=== PATIENT | male | born 1960 | race Caucasian/White ===

== ENCOUNTER 2024-08-05 12:49 | Outpatient (REF) | payer MEDICARE, MEDICAID, SELFPAY ==
--- OUTSIDE RECORDS SUMMARY | 2024-08-11 19:19 | XMS_ITS ---
Author Name [facility] Organization Unknown History of Medication Use Medication Directions Dispensed Refills Start Date End Date Stat citalopram (celeXA) 20 mg tablet Take 20 mg by mouth. 07/11/2022 active levalbuterol (XOPENEX) 1.25 mg/3 mL nebulizer solution every 30 minutes as needed. 07/11/2022 active montelukast (SINGULAIR) 10 mg tablet Take 10 mg by mouth nightly. 07/11/2022 active cromolyn (OPTICROM) 4 % ophthalmic solution PUT 1 DROP INTO THE AFFECTED EYE 4 TIMES A DAY 07/11/2022 aborted thyroid, pork, (ARMOUR THYROID) 15 mg tablet Take 75 mg by mouth Daily before breakfast. 07/11/2022 active LYRICA 50 mg capsule Take 50 mg by mouth daily. 07/11/2022 active buPROPion SR (WELLBUTRIN SR) 150 mg 12 hr tablet Take 450 mg by mouth daily. 07/11/2022 active SUMAtriptan succinate (IMITREX) 6 mg/0.5 mL solution Inject 6 mg under the skin. 07/11/2022 active pentoxifylline (TRENTal) CR tablet Take 400 mg by mouth 3 (three) times a day with meals. 07/11/2022 active clobetasoL (TEMOVATE) 0.05 % external solution PLEASE SEE ATTACHED FOR DETAILED DIRECTIONS 07/11/2022 active testosterone enanthate (DELATESTRYL) 200 mg/mL injection Inject into the shoulder, thigh, or buttocks once every 2 weeks. 07/11/2022 active VRAYLAR 4.5 mg capsule Take 3 mg by mouth daily. 07/11/2022 active primidone (MYSOLINE) 250 mg tablet Take 250 mg by mouth nightly. 10/31/2023 active ipratropium-albuterol (DUO-NEB) 0.5-2.5 mg/3 mL nebulizer solution Inhale 3 mL 4 times daily as needed. 07/11/2022 active doxazosin (CARDURA) 1 mg tablet Take 1 mg by mouth 2 (two) times a day. 07/11/2022 aborted SUMAtriptan (IMITREX) 100 mg tablet Take 100 mg by mouth once as needed. 07/11/2022 active celecoxib (CeleBREX) 100 mg capsule Take 100 mg by mouth in the morning. 07/11/2022 active loperamide (IMODIUM) capsule Take 2 mg by mouth daily. 07/11/2022 aborted omeprazole (PriLOSEC) 40 mg capsule Take 40 mg by mouth daily. 07/11/2022 active traZODone (DESYREL) 50 mg tablet 07/11/2022 aborted ezetimibe (ZETIA) 10 mg tablet Take 10 mg by mouth. 07/11/2022 aborted promethazine (PHENERGAN) 12.5 mg tablet Take 12.5 mg by mouth every 6 hours as needed. 07/11/2022 aborted umeclidinium 62.5 mcg/actuation blister with device Inhale daily. 07/11/2022 active Dupixent 300 mg/2 mL syringe SC injection 07/11/2022 acti ve acetaminophen (TYLENOL) 325 mg tablet Take 650 mg by mouth every 6 (six) hours as needed. 07/11/2022 active clopidogrel bisulfate (PLAVIX ORAL) Take by mouth. 07/11/2022 active cloNIDine (CATAPRES) 0.1 mg tablet TAKE 2 TABLETS BY MOUTH AT BEDTIME X 1 WEEK THEN TAKE 3 TABLETS AT BEDTIME 07/11/2022 aborted gabapentin (NEURONTIN) 300 mg capsule Take 300 mg by mouth nightly. 07/11/2022 active niacin (NIASPAN) 500 mg CR tablet Take 500 mg by mouth 2 (two) times a day. 07/11/2022 active primidone (MYSOLINE) 50 mg tablet Take 100 mg by mouth nightly. 07/11/2022 active tadalafiL (CIALIS) 5 mg tablet Take 5 mg by mouth 2 (two) times a day. 07/11/2022 active ROPINIRole (REQUIP) 1 mg tablet Take 1 mg by mouth daily. 07/11/2022 active fluticasone propion-salmeteroL (ADVAIR DISKUS) 500-50 mcg/dose diskus inhaler Inhale 1 puff every 12 hours. 07/11/2022 active FLOVENT HFA 220 mcg/actuation inhaler Inhale 2 puffs 2 (two) times a day. 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
== END 2024-08-05 12:50 | disposition home or self-care (01) ==
LOC: HO.BBR 12:49
PROVIDERS: PCP Internal Medicine; Visit Provider Urology
DX: D75.1 Secondary polycythemia (principal)
CPT/HCPCS: 85018; 99195

== ENCOUNTER 2024-10-27 08:47 | Outpatient (RCR) | payer MEDICARE, MEDICAID, SELFPAY | END 2024-11-10 17:17 | disposition home or self-care (01) | LOC: HO.PT 08:47 | PROVIDERS: PCP Internal Medicine; Visit Provider Orthopaedic Surgery Sports Medicine | DX: M17.12 Unilateral primary osteoarthritis, left knee (principal); Z96.652 Presence of left artificial knee joint | CPT/HCPCS: 97110; 97161 ==

== ENCOUNTER 2024-11-09 10:57 | Outpatient (REF) | payer MEDICARE, MEDICAID, SELFPAY ==
--- OUTSIDE RECORDS SUMMARY | 2024-11-09 12:24 | XMS_ITS | Encounter Summary ---
Author Organization [facility] [place] [address] Care Team Providers Care Cyber Instructor Name Role Phone Piero Echevarria MD Primary Care Provider [phone] Encounter Details Date Type Department Care Team (Latest Contact Info) Description 10/15/2024 9:17 AM EST - 10/15/2024 1:11 PM EST Hospital Encounter [facility] Main OR [address] [place] [phone] Norma Roberts MD [address] [address] Discharge Disposition: Home or Self Care Social History Tobacco Use Types Packs/Day Years Used Date Smoking Tobacco: Never Smokeless Tobacco: Never Alcohol Use Standard Drinks/Week Comments Never 0 (1 standard drink = 0.6 oz pur e alcohol) Interpersonal Safety Answer Date Record ed Physical Abuse 10/15/2024 Verbal Abuse 10/15/2024 Sex and Gender Information Value Date Recorded Sex Assigned at Male 10/04/2024 12:11 PM EST Legal Sex Male 3:09 PM EST Gender Identity Male 10/04/2024 12:11 PM EST Sexual Orientation Choose not to disclose 2024 12:11 PM EST documented as of this encounter Last Filed Vital Signs Vital Sign Reading Time Taken Comments Blood Pressure 125/81 10/15/2024 12:46 PM EST Pulse 85 10/15/2024 12:46 PM EST Temperature 36.4 ??C (97.6 ??F) 10/15/2024 12:[address] Respiratory Rate 16 10/15/2024 9:35 AM EST Oxygen Saturation 97% 10/15/2024 12:46 PM EST Inhaled Oxygen Concentration - - Weight - - Height - - Body Mass Index - - documented in this encounter Discharge Instructions * Discharge Instructions* PRANAV Ferguson - 10/15/2024 12:17 PM EST Orthopedic Discharge Instructions: Status post left endoscopic carpal tunnel release It is okay to move your fingers. Movement will help with swelling control and to minimize stiffness, including active and passive motion of the MCP (knuckles) of the hand. - Elevate surgical site above level of heart to minimize pain and swelling; this is most important in the first 3-5 days. - Apply ice packs for 10-15 min at a time; for swelling and pain control. - No driving until safely able to do so and/or cleared by Dr. Roberts. - Take oxycodone for pain sparingly. Be advised it can cause constipation, so plan accordingly. - Take Tylenol and ibuprofen as needed and as directed on the instructions of the bottle. - Dressing must be kept clean and dry. May perform dressing change 4-5 days post-op - Call if you have any questions or concerns such as fever, redness, loose splint, gross swelling, discoloration. Orthopedic [facility] * Attachments The following attachments cannot be sent through Care Everywhere. * Sedation (Cymro) * Carpal Tunnel Release: Post-op (Cymro) documented in this encounter Medications at Time of Discharge aspirin 81 mg EC tablet Take 1 tablet (81 mg total) by mouth 1 (one) time each day. buPROPion XL (WELLBUTRIN XL) 150 mg 24 hr tablet Take 1 tablet (150 mg total) by mouth 1 (one) time each day. Do not crush, chew, or split. buPROPion XL (WELLBUTRIN XL) 300 mg 24 hr tablet Take 1 tablet (300 mg total) by mouth 1 (one) time each day. Do not crush, chew, or split. ezetimibe (ZETIA) 10 mg tabletIndications:A therosclerotic heart disease of [place] coronary artery with other forms of angina pectoris (CMS/HCC) TAKE 1 TABLET BY MOUTH EVERY DAY 90 tablet 2 09/30/2024 famotidine (PEPCID) 40 mg tablet Take 1 tablet (40 mg total) by mouth 1 (one) time each day. fluticasone HFA (FLOVENT HFA) 220 mcg/actuation inhaler Inhale 1 puff by mouth 2 (two) times a day. Rinse mouth with water after use to reduce aftertaste and incidence of candidiasis. Do not swallow. fluticasone-umeclid inium-vilanterol (Trelegy Ellipta) 100-62.5-25 mcg inhaler Inhale 1 puff (100 mcg total) by mouth 1 (one) time each day. Rinse mouth with water after use to reduce aftertaste and incidence of candidiasis. Do not swallow. furosemide (LASIX) 20 mg tablet TAKE 1 TABLET BY MOUTH EVERY DAY 90 tablet 1 08/17/2024 gabapentin (NEURONTIN) 400 mg capsule Take 1 capsule (400 mg total) by mouth at bedtime. loperamide (IMODIUM A-D) 2 mg tablet Take 1 tablet (2 mg total) by mouth 2 (two) times a day if needed for diarrhea. metoprolol succinate (TOPROL-XL) 25 mg 24 hr tablet Take 1 tablet (25 mg total) by mouth 1 (one) time each day. Do not crush or chew. 90 tablet 1 10/09/2024 montelukast (SINGULAIR) 10 mg tablet Take 1 tablet (10 mg total) by mouth at bedtime. niacin 500 mg tablet Take 1 tablet (500 mg total) by mouth 1 (one) time each day with breakfast. primidone (MYSOLINE) 50 mg tablet Take 1 tablet (50 mg total) by mouth at bedtime. rOPINIRole (REQUIP) 1 mg tablet Take 1 tablet (1 mg total) by mouth at bedtime. sacubitriL-valsarta n (Entresto) 24-26 mg per tablet Take 1 tablet by mouth 2 (two) times a day. 180 each 3 08/14/2024 spironolactone (ALDACTONE) 25 mg tablet TAKE 1 TABLET BY MOUTH EVERY DAY 90 tablet 1 10/01/2024 SUMAtriptan (IMITREX) 100 mg tablet Take 1 tablet (100 mg total) by mouth 1 (one) time if needed for migraine. May repeat dose once in 2 hours if no relief. Do not exceed 2 doses in 24 hours. thyroid, pork, (ARMOUR THYROID) 15 mg tablet Take 5 tablets (75 mg total) by mouth 1 (one) time each day. vedolizumab (ENTYVIO) 300 mg recon soln Infuse 5 mL (300 mg total) into a venous catheter every 30 (thirty) days. venlafaxine (EFFEXOR) 37.5 mg tablet Take 1 tablet (37.5 mg total) by mouth 2 (two) times a day. vibegron (GEMTESA) 75 mg tablet tablet Take 1 tablet (75 mg total) by mouth at bedtime. dapagliflozin propanediol (FARXIGA) 10 mg tablet Take 1 tablet (10 mg total) by mouth 1 (one) time each day. ondansetron ODT (ZOFRAN-ODT) 4 mg disintegrating tablet Dissolve 1 tablet (4 mg total) on top of the tongue every 8 (eight) hours if needed for nausea or vomiting. acetaminophen (TYLENOL 8 HOUR) 650 mg 8 hr tablet Take 1 tablet (650 mg total) by mouth every 8 (eight) hours if needed for mild pain for up to 15 days. Do not crush, chew, or split. 45 tablet 10/15/2024 5 ibuprofen (ADVIL,MOTRIN) 800 mg tablet Take 1 tablet (800 mg total) by mouth 2 (two) times a day for 15 days. 30 tablet 10/15/2024 5 oxyCODONE (OXY-IR) 5 mg immediate release capsule Take 1 capsule (5 mg total) by mouth every 8 (eight) hours if needed for severe pain for up to 3 days. Max Daily Amount: 15 mg 8 capsule 10/15/2024 5 documented as of this encounter Ordered Prescriptions Prescription Sig Dispense Quantity Refills Last Filled Start Date End Date oxyCODONE (OXY-IR) 5 mg immediate release capsule Take 1 capsule (5 mg total) by mouth every 8 (eight) hours if needed for severe pain for up to 3 days. Max Daily Amount: 15 mg 8 capsule 10/15/2024 5 acetaminophen (TYLENOL 8 HOUR) 650 mg 8 hr tablet Take 1 tablet (650 mg total) by mouth every 8 (eight) hours if needed for mild pain for up to 15 days. Do not crush, chew, or split. 45 tablet 10/15/2024 5 ibuprofen (ADVIL,MOTRIN) 800 mg tablet Take 1 tablet (800 mg total) by mouth 2 (two) times a day for 15 days. 30 tablet 10/15/2024 5 documented in this encounter Discharge Disposition Disposition Code Departure Means Destination Comment s Home or Self Care Wheelchair Home documented in this encounter H&P Notes * Norma Roberts MD - 10/15/2024 11:10 AM EST Site marked No changes since in the office Pt also seen by cardiology Consent confirmed Source Note - Norma Roberts MD - 10/05/2024 9:15 AM EST PRE-OPERATIVE HISTORY & PHYSICAL PATIENT: Mirza Galvan Jr. :1960 VISIT DATE:10/05/2024 HPI: Mirza Galvan Jr. IS A 64 y.o. YEAR OLD male who presents for pre-operative exam. The patient is scheduled for left endoscopic carpal tunnel release.. Patient has had progressive numbness and tingling in the left hand. Some minor symptoms on the right. It is now to the point where the hand feels strange nearly all the time. It is starting to hurt more. It is in the median nerve innervated aspect of the left hand. ROS: Patient reports no recent colds flus or infections. ALLERGIES: Allergies Allergen Reactions Adhesive PROBLEM LIST: Patient Active Problem List Diagnosis HFrEF (heart failure with reduced ejection fraction) (CMS/HCC) Coronary artery disease involving [place] coronary artery of [place] heart without angina pectoris Dilated cardiomyopathy (CMS/HCC) Mixed hyperlipidemia Preop cardiovascular exam Acquired hypothyroidism BPH with urinary obstruction Androgen deficiency Chronic kidney disease (CKD) stage G3a/A1, moderately decreased glomerular filtration rate (GFR) between 45-59 mL/min/1.73 square meter and albuminuria creatinine ratio less than 30 mg/g (CMS/HCC) Tyshawn level IV melanoma (CMS/HCC) Crohn's disease (CMS/HCC) Crohn's disease of colon (CMS/HCC) Dilated idiopathic cardiomyopathy (CMS/HCC) Superficial thrombosis of lower extremity Lumbar stenosis with neurogenic claudication Malignant melanoma of scalp (CMS/HCC) Migraine headache Moderate asthma NATALIYA on CPAP Osteoarthritis of acromioclavicular joint Osteoarthritis of multiple joints Severe persistent asthma Status post insertion of drug-eluting stent into left anterior descending (LAD) artery Temporomandibular joint disorder PAST SURGERIES: Past Surgical History: Procedure Laterality Date ANKLE FRACTURE SURGERY Bilateral PROCEDURE: SD OPEN TREATMENT MEDIAL MALLEOLUS FRACTURE COLONOSCOPY 07/14/2020 PROCEDURE: HISTORICAL COLONOSCOPY; COMMENT: AND BIOPSY OF COLON FINGER SURGERY Left thumb, trapeziectomy w/ interpositional arthroplasty; done by Dr Roberts at [facility] KNEE ARTHROSCOPY W/ MENISCAL REPAIR Right 08/14/2013 PROCEDURE: SD ARTHROSCOPY KNEE W/MENISCUS RPR MEDIAL/LATERAL; COMMENT: partial medial meniscectomy KNEE SURGERY Bilateral PROCEDURE: HISTORICAL KNEE SURGERY LEG SURGERY 08/19/2017 PROCEDURE: HISTORICAL LEG SURGERY; COMMENT: Repair of quadriceps tendon OTHER SURGICAL HISTORY 07/14/2020 PROCEDURE: SD ECHO TRANSTHORAC R-T 2D W/WO M-MODE REC COMP; COMMENT: ABNORMAL OTHER SURGICAL HISTORY 04/13/2020 PROCEDURE: HISTORY OTHER; COMMENT: Melanoma excised scalp/sentinel node left neck OTHER SURGICAL HISTORY 07/01/2019 PROCEDURE: HISTORY OTHER; COMMENT: Reconstruction triceps tendon with Achilles tendon allograft left elbow OTHER SURGICAL HISTORY 08/19/2017 PROCEDURE: HISTORY OTHER; COMMENT: Repair of quadriceps tendon OTHER SURGICAL HISTORY 08/19/2017 PROCEDURE: SD RPR 1 TORN LIGM&/CAPSL KNE COLTRL&CRUCIATE OTHER SURGICAL HISTORY Left 09/29/2015 PROCEDURE: ARTHROSCOPY SHOULDER SURGI OTHER SURGICAL HISTORY 07/29/2013 PROCEDURE: HISTORY OTHER; COMMENT: Reconstruction chronic right pectoralis major rupture using achilles tendon allograft with transosseous technique OTHER SURGICAL HISTORY 05/05/2013 PROCEDURE: HISTORY OTHER; COMMENT: Secondary repair with allograft augmentation right subacute to chronic triceps tendon rupture OTHER SURGICAL HISTORY 12/24/2012 PROCEDURE: HISTORY OTHER; COMMENT: Excision of bone traction spur, right olecranon OTHER SURGICAL HISTORY 10/2009 PROCEDURE: HISTORY OTHER; COMMENT: Repair torn labum right shoulder OTHER SURGICAL HISTORY 06/19/2021 PROCEDURE: SD ECHO TRANSTHORAC R-T 2D W/WO M-MODE REC COMP OTHER SURGICAL HISTORY Left 07/01/2019 PROCEDURE: HISTORICAL ARM SURGERY; COMMENT: Reconstruction triceps tendon with Achilles tendon allograft left elbow TOTAL KNEE ARTHROPLASTY Right 06/07/2015 PROCEDURE: SD ARTHRP KNE CONDYLE&PLATU MEDIAL&LAT COMPARTMENTS SOCIAL HISTORY: Social History Tobacco Use Smoking status: Never Smokeless tobacco: Never Substance Use Topics Alcohol use: Never MEDICATIONS: Current Outpatient Medications: aspirin 81 mg EC tablet, Take 1 tablet (81 mg total) by mouth 1 (one) time each day., Disp: , Rfl: buPROPion XL (WELLBUTRIN XL) 150 mg 24 hr tablet, Take 1 tablet (150 mg total) by mouth 1 (one) time each day. Do not crush, chew, or split., Disp: , Rfl: buPROPion XL (WELLBUTRIN XL) 300 mg 24 hr tablet, Take 1 tablet (300 mg total) by mouth 1 (one) time each day. Do not crush, chew, or split., Disp: , Rfl: dapagliflozin propanediol (FARXIGA) 10 mg tablet, Take 1 tablet (10 mg total) by mouth 1 (one) timeeach day., Disp: , Rfl: dupilumab (DUPIXENT) 300 mg/2 mL syringe, Inject 2 mL (300 mg total) under the skin every 14 (fourteen) days., Disp: , Rfl: ezetimibe (ZETIA) 10 mg tablet, TAKE 1 TABLET BY MOUTH EVERY DAY, Disp: 90 tablet, Rfl: 2 famotidine (PEPCID) 20 mg tablet, Take 1 tablet (20 mg total) by mouth 1 (one) time each day., Disp: , Rfl: fluticasone HFA (FLOVENT HFA) 220 mcg/actuation inhaler, Inhale 1 puff by mouth 2 (two) times a day. Rinse mouth with water after use to reduce aftertaste and incidence of candidiasis. Do not swallow., Disp: , Rfl: fluticasone propion-salmeteroL (ADVAIR DISKUS) 500-50 mcg/dose diskus inhaler, Inhale 1 puff by mouth 2 (two) times a day. Rinse mouth with water after use to reduce aftertaste and incidence of candidiasis. Do not swallow., Disp: , Rfl: furosemide (LASIX) 20 mg tablet, TAKE 1 TABLET BY MOUTH EVERY DAY, Disp: 90 tablet, Rfl: 1 gabapentin (NEURONTIN) 400 mg capsule, Take 1 capsule (400 mg total) by mouth at bedtime., Disp: , Rfl: loperamide (IMODIUM A-D) 2 mg tablet, Take 1 tablet (2 mg total) by mouth 2 (two) times a day if needed for diarrhea., Disp: , Rfl: metoprolol succinate (TOPROL-XL) 25 mg 24 hr tablet, Take 1 tablet (25 mg total) by mouth 1 (one) time each day. Do not crush or chew., Disp: , Rfl: mirtazapine (REMERON) 45 mg tablet, Take 1 tablet (45 mg total) by mouth at bedtime., Disp: , Rfl: montelukast (SINGULAIR) 10 mg tablet, Take 1 tablet (10 mg total) by mouth at bedtime., Disp: , Rfl: niacin 500 mg tablet, Take 1 tablet (500 mg total) by mouth 1 (one) time each day with breakfast., Disp: , Rfl: ondansetron ODT (ZOFRAN-ODT) 4 mg disintegrating tablet, Dissolve 1 tablet (4 mg total) on top of the tongue every 8 (eight) hours if needed for nausea or vomiting., Disp: , Rfl: primidone (MYSOLINE) 50 mg tablet, Take 1 tablet (50 mg total) by mouth 4 (four) times a day., Disp: , Rfl: rOPINIRole (REQUIP) 1 mg tablet, Take 1 tablet (1 mg total) by mouth at bedtime., Disp: , Rfl: sacubitriL-valsartan (Entresto) 24-26 mg per tablet, Take 1 tablet by mouth 2 (two) times a day., Disp: 180 each, Rfl: 3 spironolactone (ALDACTONE) 25 mg tablet, TAKE 1 TABLET BY MOUTH EVERY DAY, Disp: 90 tablet, Rfl: 1 SUMAtriptan (IMITREX) 100 mg tablet, Take 1 tablet (100 mg total) by mouth 1 (one) time if needed for migraine. May repeat dose once in 2 hours if no relief. Do not exceed 2 doses in 24 hours., Disp:, Rfl: thyroid, pork, (ARMOUR THYROID) 15 mg tablet, Take 5 tablets (75 mg total) by mouth 1 (one) time each day., Disp: , Rfl: tramadol HCl (TRAMADOL ORAL), Take 50 mg by mouth every 12 (twelve) hours if needed. Max Daily Amount: 100 mg, Disp: , Rfl: vedolizumab (ENTYVIO) 300 mg recon soln, Infuse 5 mL (300 mg total) into a venous catheter every 30(thirty) days., Disp: , Rfl: venlafaxine (EFFEXOR) 37.5 mg tablet, Take 1 tablet (37.5 mg total) by mouth 2 (two) times a day., Disp: , Rfl: vibegron (GEMTESA) 75 mg tablet tablet, Take 1 tablet (75 mg total) by mouth at bedtime., Disp: , Rfl: PHYSICAL EXAM: Visit Vitals BP 120/77 Pulse 77 Temp 36.7 ??C (98.1 ??F) Ht 1.854 m (73 ) Wt 93 kg (205 lb) BMI 27.05 kg/m?? Smoking Status Never BSA 2.17 m?? APPEARANCE: Patient is alert and oriented and in no acute distress. HEENT: Normocephalic. Pupils are equal round and reactive to light. EXTREMITIES: On the patient's left hand does not have any gross thenar or hypothenar atrophy. He has altered sensation thumb index and long a little bit on the ring with small does not affected. He is able to flex and extend abduct and adduct the fingers and circumduct the thumb. Negative Tinel's but a positive Phalen's test. The hand is warm and well-perfused. Patient also reports some pain on the right side. He has some tenderness to palpation at the MCP joints of the index and long finger on the right. They do look little puffy when you compare the 2 hand [id number]. He has some carpal tunnel symptoms of numbness and tingling on the right but it is not as bad. I did review the patient's last x-rays and the MCP joints, at least for now, do not should reveal joint narrowing and sclerosis. IMAGES: ORTHO X-RAY EXAM OF HAND, 3+ VIEWS AP lateral and oblique of both hands were obtained on 06/08/2024. No prior images for comparison. Onthe right side patient's has evidence of some alignment deviation of the thumb. Looks like he probably has a chronic radial collateral ligament issue. Joint spaces in the DIP and PIP joints are maintained. MP joints are free of arthropathy. In the wrist he has some slight angulatory changes at the scaphoid and the neighboring trapezium and trapezoid although the joint spaces maintained. There is a little angulatory squaring off of the radial margin of the lunate. There is a subchondral cyst in the ulnar border of the lunate. Patient is ulnar positive variant. The oblique film demonstrates the changes at the MP joint of the right thumb which is chronic most likely. There is no excessive dorsal tilting of the lunate on the lateral film. On the left side patient has some joint space narrowing a little bit at the basal joint. There is similar changes at the thumb MP joint but without the angulatory changes this time more ulnar. Joint spaces at the PIP DIP and MP joints are maintained. Again patient has a few subchondral cyst noted in the proximal ulnar pole of the lunate consistent with some early ulnar impaction changes. Along the ulnar border of the MP head of the long finger there is 1 small wisp of calcification linearly which could just represent some old injury perhaps it is only noted on AP image. There is no evidence of any fractures or lytic lesions. ASSESSMENT & PLAN: ICD-10-CM ICD-9-CM 1. Carpal tunnel syndrome of left wrist G56.02 354.0 I reviewed the surgery with the patient. I showed the patient where the incisions would be. We talked about the surgery and the postoperative course. Risks of the procedure were reviewed. These can include, but are not limited to, nerve, tendon, or artery damage. There can also be complications with infection, bleeding, persistent pain, incomplete resolution of symptoms, and possibly the need foradditional interventions. Any of these events could compromise the limb on a temporary or permanentbasis. There can also be medical complications such as heart or lung dysfunction or blood clots that can put the patient at risk. We reviewed the recuperative time and limitations. Pain management was reviewed with the patient. Typically Tylenol, an anti- inflammatory, and then, if necessary, a few tablets of pain medication. The patient indicated understanding. Patient's questions were answered. Consent was obtained. POST-OPERATIVE APPOINTMENT DATE: 10/23/2024 documented in this encounter Procedure Notes * Khushi Downey RN - 10/15/2024 1:05 PM EST Discharge instructions reviewed and given to patient and Irina with stated understanding. * Norma Roberts MD - 10/15/2024 11:49 AM EST ENDOSCOPIC LEFT CARPAL TUNNEL RELEASE (L) OPERATIVE NOTE Date: 10/15/2024 Location: [facility] OR Name: Mirza Galvan Jr., : 1960, Diagnosis Pre-op Diagnosis * Carpal tunnel syndrome, left upper limb [G56.02] Post-op Diagnosis * Carpal tunnel syndrome, left upper limb [G56.02] Procedures ENDOSCOPIC LEFT CARPAL TUNNEL RELEASE 59100 - SD ENDOSCOPY WRIST SURGICAL WITH RELEASE TRANSVERSE CARPAL LIGAMENT Indications: Mirza Galvan Jr. is an 64 y.o. male who is having surgery for LEFT CARPAL TUNNEL SYNDROME. The patient has had progressive symptoms over a long period of time. He has tried conservativemeasures but due to the ongoing symptoms decision was made to proceed with operative. Surgeon(s) & Processor Inspector(s) * Norma Roberts MD - Primary * PRANAV Ferguson - Assisting Anesthesia: Monitor Anesthesia Care ASA: III Estimated Blood Loss: Minimal Procedure Details: The patient was identified in the preoperative holding area. The physical exam was updated and the chart was reviewed, updated, and consent confirmed. The patient's left hand was marked. The patient was taken to the operating room. The arm board was brought up next to the left side of the stretcher. The patient had padding and a tourniquet placed about the left upper extremity.The left hand and forearm were scrubbed, prepped, and draped in the usual sterile manner. The patient received IV sedation. Timeout procedure was done. I marked out my intended incision sites and allthe pertinent landmarks. Lidocaine 1% with epinephrine buffered with sodium bicarbonate was used and injected at the intended incision site. While the medication was taking effect we got the camera ready, white balanced, focused, and ready to go. We then elevated the arm, exsanguinated it, and raised the tourniquet. A small transverse incision was made 1 cm back from the primary flexion crease of the wrist. The patient did not have a palmaris longus tendon. This had been harvested several years ago and we did a ligamentous reconstruction of his thumb. There was significant fascial tissue at this later. I gently split it and identified the nerve. Dissection was done and the forearm fascia split carefully. 2 small cuts were made in a distal direction to create a small trapdoor. Underneath that I could visualize the median nerve. Before proceeding with canal preparation I turned my attention proximally and divided the fascia in a proximal direction for 1 -1.5cm. I then turned my attention back distally toprepare the carpal canal. I held the patient's left hand with my right hand such that my thumb was out at the distal border of the transverse carpal ligament. We passed the tenosynovium at home on the undersurface of the ligament carefully and on the back stroke pushed up on the undersurface of theligament. Care was taken to maintain the axis between the long and ring finger. This was repeated several times followed then by the small and then large dilators. We then advanced the micro-air camera and blade assembly into the carpal canal. There was still a little tenosynovium in the way so I repeated the canal maneuvers with the instruments. We then re-advanced the camera. As I advanced the camera out to the end of the ligament I then withdrew it slightly and then carefully divided the ligament in a stepwise manner with the trigger device on the blade. After completing the cut in the proximal direction I advanced the camera out distally and I could turn the camera to each side and see the cut side of the ligament. To the radial side I could turn the camera and see the median nerve. Ithclaus turned camera back up and in the midline advanced it and tapped the last few remaining fibers.The 2 sides ligament moved apart such that they were no longer coming together at an apex but rather were and in parallel. The longitudinal fibers on the undersurface of the palm fascia was visible. I carefully moved the camera back and confirm that there were no remaining fibers. I then readvanced the camera and we let the tourniquet down and I watched and there was no untoward bleeding. The camera was then removed. I confirmed by direct inspection that the proximal aspect ligament was fully divided. The instruments were removed. Wound was washed out. Because the patient has some sensitivities to adhesives we did not use Steri-Strips but rather I closed the wound with interrupted simple Prolene sutures. Xeroform was then applied. Additional lidocaine was injected just under the subcutaneous tissue of the palm and also on the distal forearm for postoperative analgesia. For the entirety of the case 15 mL was used. Soft bulky dressings were applied. Conform roll was then followed by an Miguel wrap. Sponge and instrument count was correct. The patient tolerated the procedure well and was broughtto recovery room in stable condition. Tourniquet time 9 minutes. Complications: None; patient tolerated the procedure well. Disposition: PACU - hemodynamically stable. Condition: stable * Deidre Adams RN - 10/15/2024 10:22 AM EST LAB DRAWS OF CBC AND BMP CANCELLED BY DR ROBERTS * Deidre Adams RN - 10/15/2024 10:20 AM EST [facility] IS [facility] [phone] BEFORE 2PM AFTER 2PM ADRIAN [phone] documented in this encounter Plan of Treatment Upcoming Encounters Date Type Department Care Team (Late st Contact Info) Description 12/22/2024 11:00 AM EDT Ancillary Procedure [facility]iology [facility] [address] [place] [address] 07/06/2025 10:50 AM EST Office Visit [facility] [address] [place] [address] Hari Emanuel MD [address] [place] [address] [place] [address] documented as of this encounter Procedures Procedure Name Priority Date/Time Associated Diagnosis Comments SD ENDOSCOPY WRIST SURGICAL WITH RELEASE TRANSVERSE CARPAL LIGAMENT 10/15/2024 11:29 AM EST Carpal tunnel syndrome, left upper limb documented in this encounter Visit Diagnoses Not on filedocumented in this encounter Administered Medications Inactive Administered Medications - up to 3 most recent administrations Medication Order MAR Action Action Date Dose Rate Site HYDROmorphone (PF) injection 0.5 mg 0.5 mg, intravenous, Every 5 min PRN, severe pain or when therapies for moderate pain were not effective, Starting on Roxane 10/15/24 at 1238, For 5 doses, Recovery (only) lactated Ringer's infusion 100 mL/hr, intravenous, Continuous, Starting on Roxane 10/15/24 at 1300, Recovery (only) lactated Ringer's infusion 100 mL/hr, intravenous, Continuous, Starting on Roxane 10/15/24 at 1145, Preprocedure New Bag 10/15/2024 11:29 AM EST ondansetron (PF) (ZOFRAN) injection 4 mg 4 mg, intravenous, Every 8 hours PRN, vomiting, nausea, Starting on Roxane 10/15/24 at 1238, Recovery (only), -ONLY give IV if patient is unable to take orally. -If inadequate response within 30 minutes, proceed to next-line agent or contact provider if no further options ordered. ondansetron ODT (ZOFRAN-ODT) disintegrating tablet 4 mg 4 mg, oral, Every 8 hours PRN, vomiting, nausea, Starting on Roxane 10/15/24 at 1238, Recovery (only), -Give IV if patient is unable to take orally. -If inadequate response within 30 minutes, proceed to next-line agent or contact provider if no further options ordered. For ODT tablets: -Do not remove from blister pack until just before administering. -Patient should allow tablet to dissolve on tongue. oxyCODONE (ROXICODONE) immediate release tablet 5 mg 5 mg, oral, Every 4 hours PRN, moderate pain or when therapies for mild pain were not effective, Starting on Roxane 10/15/24 at 1238, For 2 doses, Recovery (only) sodium chloride 0.9 % flush 10 mL 10 mL, intravenous, 2 times daily, First dose on Roxane 10/15/24 at 1000, Preprocedure sodium chloride 0.9 % flush 10 mL 10 mL, intravenous, As needed, line care, Starting on Roxane 10/15/24 at 0930, Preprocedure sodium chloride 0.9 % flush 10 mL 10 mL, intravenous, 2 times daily, First dose on Roxane 10/15/24 at 1145, Preprocedure sodium chloride 0.9 % flush 10 mL 10 mL, intravenous, As needed, line care, Starting on Roxane 10/15/24 at 1117, Preprocedure documented in this encounter Discontinued Medications Medication Sig Discontinue Reason Start Date End Da te dupilumab (DUPIXENT) 300 mg/2 mL syringe Inject 2 mL (300 mg total) under the skin every 14 (fourteen) days. 10/07/2024 fluticasone propion-salmeteroL (ADVAIR DISKUS) 500-50 mcg/dose diskus inhaler Inhale 1 puff by mouth 2 (two) times a day. Rinse mouth with water after use to reduce aftertaste and incidence of candidiasis. Do not swallow. 10/07/2024 mirtazapine (REMERON) 45 mg tablet Take 1 tablet (45 mg total) by mouth at bedtime. 10/07/2024 tramadol HCl (TRAMADOL ORAL) Take 50 mg by mouth if needed. Stop Taking at Discharge 10/15/2024 documented as of this encounter Historical Medications * This list may reflect changes made after this encounter. fluticasone-umec lidinium-vilante rol (Trelegy Ellipta) 100-62.5-25 mcg inhaler Inhale 1 puff (100 mcg total) by mouth 1 (one) time each day. Rinse mouth with water after use to reduce aftertaste and incidence of candidiasis. Do not swallow. added in this encounter Active and Recently Administered Medications Times are shown in EST. Scheduled Medication Order 10/13/2024 10/14/2024 10/15/2024 acetaminophen (TYLENOL) tablet 650 mg 650 mg, oral, Once, On Roxane 10/15/24 at 1300, For 1 dose, Recovery (only), Scheduled medication for mild pain 1300 (Canceled Entry - Provider: Automatic Discharge Provider - Comment: Automatically canceled at discontinue of medication order) ceFAZolin (ANCEF) 2 g in sterile water 20 mL IV syringe 2 g, intravenous, Administer over 3 Minutes, Once, On Roxane 10/15/24 at 1000, For 1 dose, Preprocedure, -IV Push over 3 minutes -Administer within 60 minutes of incision, Indication: Prophylaxis-Surgical 1000 (Canceled Entry - Provider: Automatic Discharge Provider - Comment: Automatically canceled at discontinue of medication order) sodium chloride 0.9 % flush 10 mL(Linked Group 1) 10 mL, intravenous, 2 times daily, First dose on Roxane 10/15/24 at 1000, Preprocedure 1000 (Canceled Entry - Provider: Automatic Discharge Provider - Comment: Automatically canceled at discontinue of medication order) sodium chloride 0.9 % flush 10 mL(Linked Group 2) 10 mL, intravenous, 2 times daily, First dose on Roxane 10/15/24 at 1145, Preprocedure 1145 (Canceled Entry - Provider: Automatic Discharge Provider - Comment: Automatically canceled at discontinue of medication order) Continuous Medication Order 10/13/2024 10/14/2024 10/15/2024 lactated Ringer's infusion 100 mL/hr, intravenous, Continuous, Starting on Roxane 10/15/24 at 1300, Recovery (only) 1300 (Canceled Entry - Provider: Automatic Discharge Provider - Comment: Automatically canceled at discontinue of medication order) lactated Ringer's infusion 100 mL/hr, intravenous, Continuous, Starting on Roxane 10/15/24 at 1145, Preprocedure 1129 (New Bag - Prov ider: Avtar Gonzalez DO)1215 (Anesthesia Volume Adjustment - Provider: Mitra Khan CRNA)1512 (Due: Stopped) PRN Medication Order 10/13/2024 10/14/2024 10/15/2024 HYDROmorphone (PF) injection 0.5 mg 0.5 mg, intravenous, Every 5 min PRN, severe pain or when therapies for moderate pain were not effective, Starting on Roxane 10/15/24 at 1238, For 5 doses, Recovery (only) lidocaine-EPINEPHrine (XYLOCAINE W/EPI) 1 %-1:100,000 injection (CANCELED) As needed, Starting on Roxane 10/15/24 at 1145, Intraprocedure 1145 (Given - Provid er: Norma Roberts MD) ondansetron (PF) (ZOFRAN) injection 4 mg(Linked Group 3) 4 mg, intravenous, Every 8 hours PRN, vomiting, nausea, Starting on Roxane 10/15/24 at 1238, Recovery (only), -ONLY give IV if patient is unable to take orally. -If inadequate response within 30 minutes, proceed to next-line agent or contact provider if no further options ordered. ondansetron ODT (ZOFRAN-ODT) disintegrating tablet 4 mg(Linked Group 3) 4 mg, oral, Every 8 hours PRN, vomiting, nausea, Starting on Roxane 10/15/24 at 1238, Recovery (only), -Give IV if patient is unable to take orally. -If inadequate response within 30 minutes, proceed to next-line agent or contact provider if no further options ordered. For ODT tablets: -Do not remove from blister pack until just before administering. -Patient should allow tablet to dissolve on tongue. oxyCODONE (ROXICODONE) immediate release tablet 5 mg 5 mg, oral, Every 4 hours PRN, moderate pain or when therapies for mild pain were not effective, Starting on Roxane 10/15/24 at 1238, For 2 doses, Recovery (only) sodium bicarbonate injection (CANCELED) As needed, Starting on Roxane 10/15/24 at 1147, Intraprocedure 1147 (Given - Provid er: Norma Roberts MD - Comment: mixed with Lidocaine 10:1 ratio) sodium chloride 0.9 % flush 10 mL(Linked Group 1) 10 mL, intravenous, As needed, line care, Starting on Roxane 10/15/24 at 0930, Preprocedure sodium chloride 0.9 % flush 10 mL(Linked Group 2) 10 mL, intravenous, As needed, line care, Starting on Roxane 10/15/24 at 1117, Preprocedure Linked Groups Order Group 1: Insert peripheral IV (CANCELED) STAT, Once, On Roxane 10/15/24 at 0931, For 1 occurrence, Preprocedure And Maintain IV access (CANCELED) Until discontinued, Starting on Roxane 10/15/24 at 0931, Until Specified, Preprocedure And Saline lock IV (CANCELED) Routine, Once, On Roxane 10/15/24 at 0931, For 1 occurrence, Preprocedure And sodium chloride 0.9 % flush 10 mLJump to med 10 mL, intravenous, 2 times daily, First dose on Roxane 10/15/24 at 1000, Preprocedure And sodium chloride 0.9 % flush 10 mLJump to med 10 mL, intravenous, As needed, line care, Starting on Roxane 10/15/24 at 0930, Preprocedure Group 2: Insert peripheral IV (CANCELED) STAT, Once, On Roxane 10/15/24 at 1118, For 1 occurrence, Preprocedure And Maintain IV access (CANCELED) Until discontinued, Starting on Roxane 10/15/24 at 1118, Until Specified, Preprocedure And Saline lock IV (CANCELED) Routine, Once, On Orxane 10/15/24 at 1118, For 1 occurrence, Preprocedure And sodium chloride 0.9 % flush 10 mLJump to med 10 mL, intravenous, 2 times daily, First dose on Roxane 10/15/24 at 1145, Preprocedure And sodium chloride 0.9 % flush 10 mLJump to med 10 mL, intravenous, As needed, line care, Starting on Roxane 10/15/24 at 1117, Preprocedure Group 3: ondansetron ODT (ZOFRAN-ODT) disintegrating tablet 4 mgJump to med 4 mg, oral, Every 8 hours PRN, vomiting, nausea, Starting on Roxane 10/15/24 at 1238, Recovery (only), -Give IV if patient is unable to take orally. -If inadequate response within 30 minutes, proceed to next-line agent or contact provider if no further options ordered. For ODT tablets: -Do not remove from blister pack until just before administering. -Patient should allow tablet to dissolve on tongue. Or ondansetron (PF) (ZOFRAN) injection 4 mgJump to med 4 mg, intravenous, Every 8 hours PRN, vomiting, nausea, Starting on Roxane 10/15/24 at 1238, Recovery (only), -ONLY give IV if patient is unable to take orally. -If inadequate response within 30 minutes, proceed to next-line agent or contact provider if no further options ordered. documented in this encounter Orders Medications Ordered That Luis ht Not Have Been Administered Count Last Ordered Date First Ordered Date acetaminophen (TYLENOL) tablet 650 mg 1 ceFAZolin (ANCEF) 2 g in sanya rile water 20 mL IV syringe 1 10/15/2024 HYDROmorphone (PF) injection 0.5 mg 1 10/15 lactated Ringer's infusion 2 10/15/2024 lidocaine-EPINEPHrine (XYLOC DIVYA W/EPI) 1 %-1:100,000 injection 1 10/15/2024 ondansetron (PF) (ZOFRAN) injection 4 mg 1 10/15/2024 ondansetron ODT (ZOFRAN-ODT) disintegrating tablet 4 mg 1 10/15/2024 oxyCODONE (ROXICODONE) immed iate release tablet 5 mg 1 10/15/2024 sodium bicarbonate injection 1 10/15/2024 sodium chloride 0.9 % flush 10 mL 4 025 Discharge Count Last Ordered Date First Orde red Date DISCHARGE PATIENT 1 10/15/2024 CORE MEASURES Count Last Ordered Date First Ord ered Date REASON FOR NO VTE PROPHYLAXI S - HOSPITAL ADMISSION - MECHANICAL 1 10/15/2024 documented in this encounter Care Teams Cyber Instructor Relationship Specialty Start Date End Date Piero Echevarria MD [address] [place] [address] PCP - General Internal Medicine 12/21/20 documented as of this encounter
--- OUTSIDE RECORDS SUMMARY | 2024-11-09 12:24 | XMS_ITS | Encounter Summary ---
Author Organization [facility] Address [address] [place] [address] Care Team Providers Care Vice President Digital Strategist Name Role Phone Piero Echevarria MD Primary Care Provider [phone] Reason for Visit * Reason Onset Date Comments Pre-operative Clearance 10/13/2024 Encounter Details Date Type Department Care Team (Late st Contact Info) Description 10/13/2024 Telephone [facility] [address] [place] [id number] Berta Arroyo NP [address] [place] [address] [address] [place] [address] Pre-operative Clearance Social History Tobacco Use Types Packs/Day Years Used Date Smoking Tobacco: Never Smokeless Tobacco: Never Alcohol Use Standard Drinks/Week Comments Never 0 (1 standard drink = 0.6 oz pur e alcohol) Sex and Gender Information Value Date Recorded Sex Assigned at Male 10/04/2024 12:11 PM EST Legal Sex Male 3:09 PM EST Gender Identity Male 10/04/2024 12:11 PM EST Sexual Orientation Choose not to disclose 2024 12:11 PM EST documented as of this encounter Progress Notes * Yanet Hunter, HAL - 10/13/2024 10:21 AM EST Office note was faxed to Dr. Du fax # [phone]. Confirmation received via right fax. * Katt Coy - 10/13/2024 9:21 AM EST Patient would like his note faxed to [phone] attn: * Yanet Hunter MA - 10/13/2024 8:52 AM EST Patient was seen in the office on 10/12/24 for pre- op. Office note was faxed to Dr. Roberts via [employer] by Analisa Arroyo, and Orthopedic sports analyst fax # [phone]. Confirmation received via right fax. Patient is also requesting office note to be faxed prior to his colonoscopy in December. The patient will be calling our office to let me know the fax # and office info. documented in this encounter Plan of Treatment Upcoming Encounters Date Type Department Care Team (Late st Contact Info) Description 12/22/2024 11:00 AM EDT Ancillary Procedure [facility] [address] [place] [address] 07/06/2025 10:50 AM EST Office Visit [facility] [address] [place] [address] Hari Emanuel MD [address] [place] [address] [address] [place] [address] documented as of this encounter Visit Diagnoses Not on filedocumented in this encounter Care Teams Vice President Digital Strategist Relationship Specialty Start Date End Date Piero Echevarria MD [address] [place] [address] [address] [place] [address] PCP - General Internal Medicine 12/21/20 documented as of this encounter
--- OUTSIDE RECORDS SUMMARY | 2024-11-09 12:24 | XMS_ITS | Encounter Summary ---
Author Organization [facility] Address [address] [place] [address] Care Team Providers Care Model And Dye Person Name Role Phone Pcp, Essence CRONIN Primary Care Provider Piero Christain Primary Care Provider [phone] Reason for Referral * MRI/CAT/PET Scan (Routine) - Closed Specialty Diagnoses / Procedures Referred By Contac t Referred To Contact Diagnoses Peroneal tendinitis of left lower extremity Posterior tibialis tendon insufficiency Achilles tendinitis of left lower extremity Procedures MRI ankle left WO contrast Karishma Montero MD [address] [place] [address] Phone: tel: fax: [address] [place] [address] Phone: tel: fax: Referral ID Status Reason Start Date Expiration Date Visits Requested Visits Authorized [id number] Closed Patient Preference 06/13/2021 07/18/2022 1 1 Encounter Details Date Type Department Care Team (Late st Contact Info) Description 06/13/2021 Orders Only [facility] Department of Orthopedic Surgery [address] [place], [place] [address] Karishma Montero MD [address] [place] [id number] Peroneal tendinitis of left lower extremity (Primary Dx); Posterior tibialis tendon insufficiency; Achilles tendinitis of left lower extremity Social History Tobacco Use Types Packs/Day Years Used Date Smoking Tobacco: Never Smokeless Tobacco: Never Alcohol Use Standard Drinks/Week Comments No 0 (1 standard drink = 0.6 oz pur e alcohol) Sex and Gender Information Value Date Recorded Sex Assigned at Not on file Legal Sex Male 12:04 PM EST Gender Identity Not on file Sexual Orientation Not on file COVID-19 Exposure Response Date Recorded In the last month, have you been in contact with someone who was confirmed or suspected to have Coronavirus / COVID-19? No / Unsure 05/31/2021 1:37 PM EDT documented as of this encounter Plan of Treatment Scheduled Orders Name Type Priority Associated Diagnoses Orde r Schedule MRI ankle left WO contrast Imaging Routine Peroneal tendinitis of left lower extremity Posterior tibialis tendon insufficiency Achilles tendinitis of left lower extremity Expected: 06/13/2021, Expires: 06/13/2022 documented as of this encounter Visit Diagnoses Diagnosis Peroneal tendinitis of left lower extremity- Primary Posterior tibialis tendon insufficiency Achilles tendinitis of left lower extremity documented in this encounter Care Teams Model And Dye Person Relationship Specialty Start Date End Date Pcp, MD Essence [address] [place] [address] PCP - General Internal Medicine 01/16/18 06/28/22 Piero Echevarria [address] [place] [address] PCP - General Primary Care 06/29/22 documented as of this encounter
--- OUTSIDE RECORDS SUMMARY | 2024-11-09 12:24 | XMS_ITS | Encounter Summary ---
Author Organization [facility] Address [address] [place] [address] Care Team Providers Care Patient Services Manager Name Role Phone Piero Echevarria MD Primary Care Provider Reason for Referral * Imaging (Routine) - Closed Specialty Diagnoses / Procedures Referred By Contac t Referred To Contact Diagnoses Swelling Pain Localized edema Procedures Vascular US duplex lower extremity venous left Chris Hairston MD [address] [id number] Phone: tel: fax: [facility] Referral ID Status Reason Start Date Expiration Date Visits Re quested Visits Authorized [id number] Closed 11/03/2024 11/03/2025 1 1 Reason for Visit * Imaging (Routine) - Closed Specialty Diagnoses / Procedures Referred By Fernanda holden Referred To Contact Diagnoses Swelling Pain Localized edema Procedures Vascular US duplex lower extremity venous left Chris Hairston MD [address] [address] Phone: tel: fax: [facility] Referral ID Status Reason Start Date Expiration Date Visits Re quested Visits Authorized [id number] Closed 11/03/2024 11/03/2025 1 1 Encounter Details Date Type Department Care Team (Latest Contact Info) Description 11/03/2024 3:00 PM EST - 11/03/2024 11:59 PM EST Hospital Encounter [facility] Ultrasound [address] [place] [address] Swelling; Pain; Localized edema Discharge Disposition: Home or Self Care Social [...] PM EST documented as of this encounter Medications at Time of Discharge [...] 10 mg tabletIndications: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 documented as of this encounter Discharge Disposition Disposition Code Departure Means Destination Home or Self Care documented in this encounter Plan of Treatment Upcoming Encounters Date Type Department Care Team (Late st Contact Info) Description 12/22/2024 11:00 AM EDT Ancillary Procedure [facility] [address] [place] [address] 07/06/2025 10:50 AM EST Office Visit [facility] [address] [place] [address] [address] [place] [address] Hari Emanuel MD [address] [place] [address] [address] [place] [address] documented as of this encounter Procedures Procedure Name Priority Date/Time Associated Diagnosis Comments VAS US DUPLEX LOWER EXT VENOUS LEFT Routine 11/03/2024 3:35 PM EST Swelling Pain Localized edema documented in this encounter Results * Vascular US duplex lower extremity venous left (11/03/2024 3:35 PM EST) Anatomical Region Laterality Modality Vascular, Abdomen Ultrasound 11/03/2024 3:41 PM EST Impressions 11/03/2024 3:41 PM EST NO LEFT LOWER EXTREMITY DEEP VENOUS THROMBOSIS. -------- FINAL REPORT -------- Dictated By: Darrell Vasquez Dictated Date: 11/03/2024 15:41 ET Assigned Physician: Darrell Vasquez Reviewed and Electronically Signed By: Darrell Vasquez Signed Date: 11/03/2024 15:41 ET Workstation ID: [id number] Transcribed By: Self Edit Transcribed Date: 11/03/2024 15:41 ET Narrative 11/03/2024 3:41 PM EST Ultrasound venous duplex left lower extremity INDICATION: ro dvt TECHNIQUE: 2-D and color Doppler imaging of the left lower extremity venous vasculature with compression and augmentation maneuvers. COMPARISON: No priors available. FINDINGS: There is normal flow, compression, and augmentation from the common femoral through the popliteal vein. Complex appearing popliteal fossa cyst measuring 5.6 x 2.2 x 1.5 cm Procedure Note Darrell Vasquez MD - 11/03/2024 Ultrasound venous duplex left lower extremity INDICATION: ro dvt TECHNIQUE: 2-D and color Doppler imaging of the left lower extremityvenous vasculature with compression and augmentation maneuvers. COMPARISON: No priors available. FINDINGS: There is normal flow, compression, and augmentation from the commonfemoral through the popliteal vein. Complex appearing popliteal fossa cystmeasuring 5.6 x 2.2 x 1.5 cm IMPRESSION: NO LEFT LOWER EXTREMITY DEEP VENOUS THROMBOSIS. -------- FINAL REPORT -------- Dictated By: Darrell Vasquez Dictated Date: 11/03/2024 15:41 ET Assigned Physician: Darrell Vasquez Reviewed and Electronically Signed By: Darrell Vasquez Signed Date: 11/03/2024 15:41 ET Workstation ID: [id number] Transcribed By: Self Edit Transcribed Date: 11/03/2024 15:41 ET Chris Hairston MD CV VASCULAR PROCEDURES Final Re sult documented in this encounter Visit Diagnoses Diagnosis Swelling Localized superficial swelling, mass, or lump Pain Generalized pain Localized edema Edema documented in this encounter Care Teams Patient Services Manager Relationship Specialty Start Date End Date Piero Echevarria MD [address] [place] [address] PCP - General Internal Medicine 12/21/20 documented as of this encounter
--- OUTSIDE RECORDS SUMMARY | 2024-11-09 12:24 | XMS_ITS | Encounter Summary ---
Author Organization [facility] Address [address] [place] [address] Care Team Providers Care Auto Service Dispatcher Name Role Phone Piero Echevarria MD Primary Care Provider Encounter Details Date Type Department Care Team (Late st Contact Info) Description 10/15/2024 10:45 AM EST - 10/15/2024 12:00 PM EST Surgery [facility] OR [address] [place] [phone] Norma Roberts MD [address] [facility] [address] [place] [address] ENDOSCOPIC LEFT CARPAL TUNNEL RELEASE [11391 (CPT??)] Surgery Details Date/Time Status Location OR Service Patient Class Case Cl ass Case Type Trauma Case? 10/15/2024 10:45 AM Posted [facility] F - Elective Panel 1 Procedure LRB Anes Op Region Wound Class Comments ENDOSCOPIC LEFT CARPAL TUNNEL RELEASE Left Moderate Sedation Wrist Class I/ Clean Surgeon Surgeon Role Service Panel Norma Roberts MD Primary Orthopedics 1 Macy Wyatt PA Assisting 1 documented in this encounter Social History Tobacco Use Types Packs/Day Years [...] Sign Reading Time Taken Comments Blood Pressure 144/93 10/15/2024 9:35 AM EST Pulse 87 10/15/2024 9:35 AM EST Temperature 37 ??C (98.6 ??F) 10/15/2024 9:35 AM EST Respiratory Rate 16 10/15/2024 9:35 AM EST Oxygen Saturation 96% 10/15/2024 9:35 AM EST Inhaled Oxygen Concentration - - Weight [...] redness, loose splint, gross swelling, discoloration. Orthopedic care collbran * Attachments The following attachments cannot be sent through Care Everywhere. * Sedation (Rwandan) * Carpal Tunnel Release: Post-op (Rwandan) documented in this encounter Medications at Time [...] 10 mg tabletIndications:A therosclerotic heart disease of jena coronary artery with other forms of angina [...] Daily Amount: 15 mg 8 capsule 10/15/2024 documented as of this encounter Ordered Prescriptions Prescription Sig Dispense Quantity Refills Last Filled Start Date End Date oxyCODONE (OXY-IR) 5 mg immediate release capsule Take 1 capsule (5 mg total) by mouth every 8 (eight) hours if needed for severe pain for up to 3 days. Max Daily Amount: 15 mg 8 capsule 10/15/2024 acetaminophen (TYLENOL 8 HOUR) 650 mg 8 hr tablet Take 1 tablet (650 mg total) by mouth every 8 (eight) hours if needed for mild pain for up to 15 days. Do not crush, chew, or split. 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 Dilated cardiomyopathy (CMS/HCC) [...] Laterality Date ANKLE FRACTURE SURGERY Bilateral PROCEDURE: DE OPEN TREATMENT MEDIAL MALLEOLUS FRACTURE COLONOSCOPY 07/14/2020 PROCEDURE: HISTORICAL COLONOSCOPY; COMMENT: AND BIOPSY OF COLON FINGER SURGERY Left thumb, trapeziectomy w/ interpositional arthroplasty; done by Dr Roberts at [facility] KNEE ARTHROSCOPY W/ MENISCAL REPAIR Right 08/14/2013 PROCEDURE: DE ARTHROSCOPY KNEE W/MENISCUS RPR MEDIAL/LATERAL; COMMENT: partial medial meniscectomy KNEE SURGERY Bilateral PROCEDURE: HISTORICAL KNEE SURGERY LEG SURGERY 08/19/2017 PROCEDURE: HISTORICAL LEG SURGERY; COMMENT: Repair of quadriceps tendon OTHER SURGICAL HISTORY 07/14/2020 PROCEDURE: DE ECHO TRANSTHORAC R-T 2D W/WO M-MODE REC COMP; COMMENT: ABNORMAL OTHER SURGICAL HISTORY 04/13/2020 PROCEDURE: HISTORY OTHER; COMMENT: Melanoma excised scalp/sentinel node left neck OTHER SURGICAL HISTORY 07/01/2019 PROCEDURE: HISTORY OTHER; COMMENT: Reconstruction triceps tendon with Achilles tendon allograft left elbow OTHER SURGICAL HISTORY 08/19/2017 PROCEDURE: HISTORY OTHER; COMMENT: Repair of quadriceps tendon OTHER SURGICAL HISTORY 08/19/2017 PROCEDURE: DE RPR 1 TORN LIGM&/CAPSL KNE COLTRL&CRUCIATE OTHER [...] right shoulder OTHER SURGICAL HISTORY 06/19/2021 PROCEDURE: DE ECHO TRANSTHORAC R-T 2D W/WO M-MODE REC COMP OTHER SURGICAL HISTORY Left 07/01/2019 PROCEDURE: HISTORICAL ARM SURGERY; COMMENT: Reconstruction triceps tendon with Achilles tendon allograft left elbow TOTAL KNEE ARTHROPLASTY Right 06/07/2015 PROCEDURE: DE ARTHRP KNE CONDYLE&PLATU MEDIAL&LAT COMPARTMENTS SOCIAL HISTORY: [...] puffy when you compare the 2 hand [id number]. He has some carpal tunnel symptoms of [...] RELEASE (L) OPERATIVE NOTE Date: 10/15/2024 Location: [facility] OR Name: Mirza Galvan Jr., : 1960, Diagnosis Pre-op Diagnosis * Carpal tunnel syndrome, left upper limb [G56.02] Post-op Diagnosis * Carpal tunnel syndrome, left upper limb [G56.02] Procedures ENDOSCOPIC LEFT CARPAL TUNNEL RELEASE [id number] - DE ENDOSCOPY WRIST SURGICAL WITH RELEASE TRANSVERSE CARPAL LIGAMENT Indications: Mirza Galvan Jr. is an 64 y.o. male who is having surgery for LEFT CARPAL TUNNEL SYNDROME. The patient has had progressive symptoms over a long period of time. He has tried conservativemeasures but due to the ongoing symptoms decision was made to proceed with operative. Surgeon(s) & Pick Up Truck Driver(s) * Norma Roberts MD - Primary * [...] the camera and see the median nerve. Ritu turned camera back up and in the [...] 10/15/2024 10:20 AM EST [facility] IS IRINA [phone] BEFORE 2PM AFTER 2PM ADRINA [phone] documented in this encounter Plan of Treatment Upcoming Encounters Date Type Department Care Team (Late st Contact Info) Description 12/22/2024 11:00 AM EDT Ancillary Procedure [facility] [address] [place] [address] 07/06/2025 10:50 AM EST Office Visit [facility] [address] [place] [address] Hari Emanuel MD [address] [place] [address] [address] [place] [address] documented as of this encounter Procedures Procedure Name Priority Date/Time Associated Diagnosis Comments DE ENDOSCOPY WRIST SURGICAL WITH RELEASE TRANSVERSE CARPAL LIGAMENT 10/15/2024 11:29 AM EST Carpal tunnel syndrome, left upper limb documented in this encounter Visit Diagnoses Diagnosis Carpal tunnel syndrome, left upper limb documented in this encounter Administered Medications Inactive Administered [...] Preprocedure New Bag 10/15/2024 11:29 AM EST lidocaine-EPINEPHrine (XYLOCAINE W/EPI) 1 %-1:100,000 injection As needed, Starting on Roxane 10/15/24 at 1145, Intraprocedure Given 10/15/2024 11:45 AM EST 10 mL Left Hand ondansetron (PF) (ZOFRAN) injection 4 mg 4 [...] 2 doses, Recovery (only) sodium bicarbonate injection As needed, Starting on Roxane 10/15/24 at 1147, Intraprocedure Given 10/15/2024 11:47 AM EST 1 mEq Left Hand sodium chloride 0.9 % flush 10 mL [...] IV access (CANCELED) Until discontinued, Starting on Roxnae 10/15/24 at 0931, Until Specified, Preprocedure And [...] (CANCELED) Routine, Once, On Roxane 10/15/24 at 1118, For [...] 1 10/15 lactated Ringer's infusion 2 10/15/2024 ondansetron (PF) (ZOFRAN) injection 4 mg 1 10/15/2024 ondansetron ODT (ZOFRAN-ODT) disintegrating tablet 4 mg 1 10/15/2024 oxyCODONE (ROXICODONE) immed iate release tablet 5 mg 1 10/15/2024 sodium chloride 0.9 % flush 10 mL 4 025 Discharge Count Last Ordered Date First Orde red Date DISCHARGE PATIENT 1 10/15/2024 CORE MEASURES Count Last Ordered Date First Ord ered Date REASON FOR NO VTE PROPHYLAXI S - HOSPITAL ADMISSION - MECHANICAL 1 10/15/2024 documented in this encounter Care Teams Auto Service Dispatcher Relationship Specialty Start Date End Date Piero Echevarria MD [address] [place] [address] PCP - General Internal Medicine 12/21/20 documented as of this encounter
--- OUTSIDE RECORDS SUMMARY | 2024-11-09 12:24 | XMS_ITS | Clinical Summary ---
Author Organization [facility] Address [address] [place] [address] Care Team Providers Care Logging Engineer Name Role Phone Piero Echevarria Primary Care Provider [phone] Allergies Active Allergy Reactions Criticality Noted Date Comments Adhesive Tape-Silicones Rash Low 03/08/2021 Paper tape is ok Cat Dander 07/09/2022 Other reaction(s): runny nose sneezing Medications fluticasone propion-salmete roL (ADVAIR DISKUS) 500-50 mcg/dose diskus inhaler Inhale 1 puff every 12 hours. Active pentoxifylline (TRENTal) CR tablet Take 400 mg by mouth 3 (three) times a day with meals. 5 Active LYRICA 50 mg capsule Take 50 mg by mouth daily. 5 8 Active primidone (MYSOLINE) 250 mg tablet Take 250 mg by mouth nightly. 5 Active thyroid, pork, (ARMOUR THYROID) 15 mg tablet Take 75 mg by mouth Daily before breakfast. Active VRAYLAR 4.5 mg capsule Take 3 mg by mouth daily. 0 8 Active celecoxib (CeleBREX) 100 mg capsule Take 100 mg by mouth in the morning. Active tadalafiL (CIALIS) 5 mg tablet Take 5 mg by mouth 2 (two) times a day. 7 Active FLOVENT HFA 220 mcg/actuation inhaler Inhale 2 puffs 2 (two) times a day. 5 8 Active gabapentin (NEURONTIN) 300 mg capsule Take 300 mg by mouth nightly. Active umeclidinium 62.5 mcg/actuation blister with device Inhale daily. 7 Active ipratropium-alb uterol (DUO-NEB) 0.5-2.5 mg/3 mL nebulizer solution Inhale 3 mL 4 times daily as needed. Active levalbuterol (XOPENEX) 1.25 mg/3 mL nebulizer solution every 30 minutes as needed. Active montelukast (SINGULAIR) 10 mg tablet Take 10 mg by mouth nightly. 7 Active niacin (NIASPAN) 500 mg CR tablet Take 500 mg by mouth 2 (two) times a day. 3 8 Active ROPINIRole (REQUIP) 1 mg tablet Take 1 mg by mouth daily. 7 Active SUMAtriptan (IMITREX) 100 mg tablet Take 100 mg by mouth once as needed. Active SUMAtriptan succinate (IMITREX) 6 mg/0.5 mL solution Inject 6 mg under the skin. Active testosterone enanthate (DELATESTRYL) 200 mg/mL injection Inject into the shoulder, thigh, or buttocks once every 2 weeks. Active Dupixent 300 mg/2 mL syringe SC injection 0 Active buPROPion SR (WELLBUTRIN SR) 150 mg 12 hr tablet Take 450 mg by mouth daily. 0 Active clobetasoL (TEMOVATE) 0.05 % external solution PLEASE SEE ATTACHED FOR DETAILED DIRECTIONS 1 Active citalopram (celeXA) 20 mg tablet Take 20 mg by mouth. 1 Active acetaminophen (TYLENOL) 325 mg tablet Take 650 mg by mouth every 6 (six) hours as needed. Active clopidogrel bisulfate (PLAVIX ORAL) Take by mouth. 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 18 Immunizations Name Administration Dates Next Due COVID-19 MRNA (MODERNA) 12/11/2020,11/13/2020 Family History Relation Status Comments Father Mother Social History Tobacco Use Types Packs/Day Years Used Date Smoking Tobacco: Never Smokeless Tobacco: Never Tobacco Cessation:Counseling Given: Not Answered Alcohol Use Standard Drinks/Week Comments No 0 (1 standard drink = 0.6 oz pur e alcohol) Sex and Gender Information Value Date Recorded Sex Assigned at Not on file Legal Sex Male 12:04 PM EST Gender Identity Not on file Sexual Orientation Not on file Last Filed Vital Signs Vital Sign Reading Time Taken Comments Blood Pressure 146/85 10/24/2023 2:20 PM EST Pulse 80 10/24/2023 2:20 PM EST Temperature 37.1 ??C (98.7 ??F) 10/24/2023 1:40 PM ES T Respiratory Rate 16 10/24/2023 2:20 PM EST Oxygen Saturation 95% 10/24/2023 2:20 PM EST Inhaled Oxygen Concentration - - Weight 94.5 kg (208 lb 5.4 oz) 10/24/2023 11:54 AM EST Height 185.4 cm (6' 1 ) 10/18/2023 3:31 PM EST Body Mass Index 27.49 10/18/2023 3:31 PM EST Plan of Treatment Health Maintenance Due Date Last Done Comments CT Colonography 1960 Colonoscopy 1960 Colorectal Cancer Screening 1960 FIT-DNA (Cologuard) 1960 FIT 1960 FOBT 1960 Flex Sigmoidoscopy - 5y 1960 HIV Screening 1960 Hepatitis C Screening 1979 Pneumococcal Vaccine: Pediatrics (0 to 5 Years) and At-Risk Patients (6 to 64 Years) (2 of 2 - PCV) 12/26/2019 12/25/2018 COVID-19 Vaccine (2023-2 5 season) 2024 07/25/2021, 12/11/2020, 11/13/2020 Influenza Vaccine (#1) 2024 DTaP,Tdap,and Td Vaccines (2 - Td or Tdap) 11/25/2029 11/26/2019 Zoster Vaccines Completed 08/11/2020, 06/07/2020 HPV Vaccines Aged Out No longer eligi ble based on patient's age to complete this topic Hepatitis A Vaccines Aged Out No long er eligible based on patient's age to complete this topic MMR Vaccines Aged Out No longer eligi ble based on patient's age to complete this topic Meningococcal Vaccine Aged Out No ciarra eleno eligible based on patient's age to complete this topic Medical Devices Implanted Type Area General Office Clerk Device Identifier Shelf Expiration Date Model / Serial / Lot 4 X 6 (10cm X 15cm) Large, Right 3dmax Mesh - [id number] Implanted:Qty: 1 on 10/06/2020 by Abebe Nicholson MD at [facility] Mesh Implant Right: Abdomen [employer] 05/30/2025 [id number] / / [id number] Description:inguinal 5mm Abs Cervical Fixation Device, Single Use W/ 30 Tacks, Absorbatrack, Drop-Ship Only - [id number] Implanted:Qty: 1 on 10/06/2020 by Abebe Nicholson MD at [facility] Surgical Fixation Device Right: Abdomen [employer] (formerly Auto Suture/US Surgical) 03/01/2023 [id number] / / [id number] 1.6mm X 229mm Microaire K-Wire - [id number] Implanted:Qty: 2 on 03/09/2021 at [facility] Surgical Fixation Device [employer] [id number] / / Description:not an implant Insurance MEDICARE PART A & B [facility] Advance Directives For more information, please contact: [phone] Documents on File Type Date Recorded Patient Wood Inspector Expl anation Advance Directives 10/28/2023 12:58 PM Advance Directives 08/18/2018 12:53 PM Care Teams Logging Engineer Relationship Specialty Start Date End Date Piero Echevarria [address] [place] [id number] PCP - General Primary Care 06/29/22
--- OUTSIDE RECORDS SUMMARY | 2024-11-09 12:24 | XMS_ITS | Encounter Summary ---
Author Organization [facility] Address [address] [place] [address] Care Team Providers Care Snaker Name Role Phone Piero Echevarria Primary Care Provider [phone] Encounter Details Date Type Department Care Team (Late st Contact Info) Description 10/28/2023 Orders Only [facility] Department of Orthopedic Surgery [address] [place] [address] Karishma Montero MD [address] [facility] [place] [phone] Social History Tobacco Use Types Packs/Day Years Used Date Smoking Tobacco: Never Smokeless Tobacco: Never Alcohol Use Standard Drinks/Week Comments No 0 (1 standard drink = 0.6 oz pur e alcohol) Sex and Gender Information Value Date Recorded Sex Assigned at Not on file Legal Sex Male 12:04 PM EST Gender Identity Not on file Sexual Orientation Not on file documented as of this encounter Plan of Treatment Not on file documented as of this encounter Visit Diagnoses Not on filedocumented in this encounter Care Teams Snaker Relationship Specialty Start Date End Date Piero Echevarria [address] [place] [address] PCP - General Primary Care 06/29/22 documented as of this encounter
--- OUTSIDE RECORDS SUMMARY | 2024-11-09 12:24 | XMS_ITS | Encounter Summary ---
Author Organization [facility] Address [address] [id number] Care Team Providers Care Floor Worker Well Service Name Role Phone Pcp, Essence CRONIN Primary Care Provider Piero Christian Primary Care Provider [phone] Reason for Referral * Physical Therapy (Routine) - Closed Specialty Diagnoses / Procedures Referred By Fernanda holden Referred To Contact Physical Therapy Diagnoses Posterior tibialis tendon insufficiency Achilles tendinitis of left lower extremity Karishma Montero MD [address] [place] [phone] Phone: tel: fax: Referral ID Status Reason Start Date Expiration Date Visits Re quested Visits Authorized [id number] Closed 06/15/2020 12/12/2020 1 1 Encounter Details Date Type Department Care Team (Late st Contact Info) Description 06/15/2020 Orders Only [facility] Department of Orthopedic Surgery [address] [place], [place] [phone] Karishma Montero MD [address] [place] [phone] Posterior tibialis tendon insufficiency (Primary Dx); Achilles tendinitis of left lower extremity Social [...] of this encounter Plan of Treatment Scheduled Referrals Name Type Priority Associated Diagnoses Orde r Schedule Rehab Services Referral Outpatient Referral Routine Posterior tibialis tendon insufficiency Achilles tendinitis of left lower extremity Ordered: 06/15/2020 documented as of this encounter Visit Diagnoses Diagnosis Posterior tibialis tendon insufficiency- Primary Achilles tendinitis of left lower extremity documented in this encounter Care Teams Floor Worker Well Service Relationship Specialty Start Date End Date Pcp, MD Essence [address] [place] [address] PCP - General Internal Medicine 01/16/18 06/28/22 Piero Echevarria [address] [place] [address] PCP - General Primary Care 06/29/22 documented as of this encounter
--- OUTSIDE RECORDS SUMMARY | 2024-11-09 12:24 | XMS_ITS | Encounter Summary ---
Author Organization [facility] Address [address] [place] [address] Care Team Providers Care Senior Mechanical Designer Name Role Phone Essence Krueger MD Primary Care Provider Piero Christian Primary Care Provider [phone] Encounter Details Date Type Department Care Team (Late st Contact Info) Description 03/16/2021 Orders Only [address] [address] Karishma Montero MD [address] [place] [address] [phone] Social History Tobacco Use Types Packs/Day Years [...] have Coronavirus / COVID-19? No / Unsure 03/08/2021 9:37 AM EDT documented as of this encounter Plan of Treatment Not on file documented as of this encounter Visit Diagnoses Not on filedocumented in this encounter Care Teams Senior Mechanical Designer Relationship Specialty Start Date End Date Essence Krueger MD [address] [place] [address] PCP - General Internal Medicine 01/16/18 06/28/22 Piero Echevarria [address] [place] [address] PCP - General Primary Care 06/29/22 documented as of this encounter
--- OUTSIDE RECORDS SUMMARY | 2024-11-09 12:24 | XMS_ITS | Encounter Summary ---
Author Organization [facility] Address [address] [place] [address] Care Team Providers Care Digital Pre Press Operator Name Role Phone Piero Echevarria MD Primary Care Provider Encounter Details Date Type Department Care Team (Late st Contact Info) Description 10/23/2024 2:45 PM EST Office Visit [facility] [place] [address] [place] [phone] Macy Wyatt PA [address] [facility] [address] [place] [phone] S/P carpal tunnel release (Primary Dx) Social History Tobacco Use Types Packs/Day Years [...] as of this encounter Progress Notes * PRANAV Ferguson - 10/23/2024 2:45 PM EST Patient: Mirza Galvan : 1960 VISIT DATE: 10/23/2024 HPI: Cole is a 64 y.o. year old male who presents for post-operative follow- up. Patient underwentleft endoscopic carpal tunnel release with Dr. Roberts on 10/15/2024. Patient reports improvement in pain fully but still some residual numbness. Physical Exam: Surgical incision site is clean dry and intact. All sutures removed. No wound dehiscence or signs of infection and patient make a full fist. Images: None today Assessment and Plan: 1. S/P carpal tunnel release Status post above doing well. Steri-Strip was placed over the area and was told to leave it on until falls off. He can shower. Slowly resume regular activities. No follow-up needed at this time if there is any worsening problems or pain he knows to call the office for an appointment. There are no diagnoses linked to this encounter. Work status (if applicable): N/A PRANAV Ferguson documented in this encounter Plan of Treatment Upcoming Encounters Date Type Department Care Team (Late st Contact Info) Description 12/22/2024 11:00 AM EDT Ancillary Procedure [facility] [address] [facility] [address] [place] [address] 07/06/2025 10:50 AM EST Office Visit [facility] [address] [place] [address] [address] [place] [address] Hari Emanuel MD [address] [place] [address] [address] [place] [address] documented as of this encounter Visit Diagnoses Diagnosis S/P carpal tunnel release- Primary Other postprocedural status documented in this encounter Care Teams Digital Pre Press Operator Relationship Specialty Start Date End Date Piero Echevarria MD [address] [place] [address] [address] [place] [address] PCP - General Internal Medicine 12/21/20 documented as of this encounter
--- OUTSIDE RECORDS SUMMARY | 2024-11-09 12:24 | XMS_ITS | Encounter Summary ---
Author Organization [facility] Address [address] [place] [address] Care Team Providers Care News Videotape Editor Name Role Phone Piero Echevarria MD Primary Care Provider [phone] Encounter Details Date Type Department Care Team (Late st Contact Info) Description 10/15/2024 11:31 AM EST Anesthesia Event [facility] Main OR [address] [place] [address] Avtar Gonzalez DO [address] [place] [address] Mitra Khan CRNA [address] [place] [address] Anesthesia Record Procedure Summary Procedure Name Responsible Anesthesiologist Anesthesia Start Time Anesthesia Stop Time ENDOSCOPIC LEFT CARPAL TUNNEL RELEASE (Left: Wrist) Avtar Gonzalez DO 10/15/24 1131 10/15/24 1215 Events Date Time Event Comment 10/15/2024 1117 1129 In Room 1131 An Start 1131 An Start Data The patient wa s reevaluated immediately before moderate or deep sedation use and before anesthesia induction. 1131 Anesthesia Ready 1148 An Tourn Inflated 1149 Proc Start 1157 An Tourn Deflated 1208 Proc Fin 1209 an stop data 1209 Out of Room 1215 Handoff to RN I completed my handoff to the receiving nurse during which we: 1. Identified the patient 2. Identified the responsible provider 3. Reviewed the pertinent medical history 4. Discussed the surgical course 5. Reviewed intra-op anesthesia management and issues during anesthesia 6. Set expectations for post-procedure period 7. Allowed opportunity for questions and acknowledgement of understanding. 1215 An Stop Meds Name Total fentaNYL 0.05 mg/mL 100 mcg midazolam 1 mg/mL 2 mg propofol (DIPRIVAN) injection 10 mg/mL 1 00 mg propofol (DIPRIVAN) infusion 10 mg/mL 24 4.14 mg lidocaine PF (XYLOCAINE-MPF) local injec tion 2% 100 mg lactated Ringer's infusion 300 mL * Agents Name O2 N2O Air Sevoflurane Inspired Sevoflurane * Blood No blood administrations on file. Lines, Drains, and Airways Type Details Placement Removal Wound Incision; 10/15/24; 1149; Wrist; Anterior, Left 10/15/24 1149 by Angélica Denise RN Peripheral IV Placement Date: 10/15/24; Placement Time: 1008; Catheter Size: 20 G; Orientation: Posterior, Right; Location: Hand; Site Prep: Chlorhexidine; Insertion Attempts: 1; Patient Tolerance: Tolerated well; Removal Date: 10/15/24; Removal Time: 1304 10/15/24 1008 by Deidre Adams RN 10/15/24 1304 by Khushi Mayo RN documented in this encounter Social History Tobacco [...] as of this encounter Progress Notes * Avtar Gonzalez, - 10/15/2024 2:28 PM EST Patient: Mirza Galvan . Procedure Summary Date: 10/15/24 Room / Location: [facility] OR [address] [place] [address] OR Anesthesia Start: 1131 Anesthesia Stop: 1215 Procedure: ENDOSCOPIC LEFT CARPAL TUNNEL RELEASE (Left: Wrist) Diagnosis: Carpal tunnel syndrome, left upper limb (LEFT CARPAL TUNNEL SYNDROME) Surgeons: Norma Roberts MD Responsible Provider: Avtar Gonzalez DO Anesthesia Type: MAC ASA Status: 3 Anesthesia Plan: MAC Last Vitals: Vitals Value Taken Time BP 125/81 10/15/24 1246 Temp 36.4 ??C (97.6 ??F) 10/15/24 1214 Pulse 85 10/15/24 1246 Resp 14 10/15/24 1428 SpO2 97 % 10/15/24 1246 Pain Score: 0 - No pain Anesthesia Post Evaluation Patient location during evaluation: PACU Patient participation: complete - patient participated Level of consciousness: awake Pain score: 0 Pain management: adequate Airway patency: patent Anesthetic complications: no Cardiovascular status: acceptable Respiratory status: acceptable Hydration status: acceptable Nausea: No Vomiting: No There were no known notable events for this encounter. * Avtar Gonzalez DO - 10/15/2024 11:16 AM EST 64 y.o. male scheduled for Carpal tunnel syndrome, left upper limb [ENDOSCOPIC LEFT CARPAL TUNNEL RELEASE (Left: Wrist)] Cardiac stent about 1 yr ago. Greater than 4 METs and active. Controlled moderate asthma. Ht Readings from Last 1 Encounters: 10/12/24 1.854 m (73 ) Wt Readings from Last 1 Encounters: 10/12/24 93.9 kg (207 lb) There is no height or weight on file to calculate BMI. 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 CAP (community acquired pneumonia) DX:CAP (community acquired pneumonia); COMMENT: D/C'd @ [facility] ON 08/22/21 Chronic kidney disease (CKD) stage G3a/A1, moderately decreased glomerular filtration rate (GFR) between 45-59 mL/min/1.73 square meter and albuminuria creatinine ratio less than 30 mg/g (CMS/HCC) DX:Chronic kidney disease (CKD) stage G3a/A1, moderately decreased glomerular filtration rate (GFR)between 45-59 mL/min/1.73 square meter and albuminuria creatinine ratio less than 30 mg/g (HCC) 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) Crohn's disease (CMS/HCC) DX:Crohn's disease (HCC) Crohn's disease (CMS/HCC) DX:Crohn's disease (HCC) Depression DX:Depression DVT, lower extremity, recurrent, left (CMS/HCC) DX:DVT, lower extremity, recurrent, left (HCC); COMMENT: happened after he struck his leg Erectile dysfunction DX:Erectile dysfunction Essential tremor DX:Essential tremor Gynecomastia DX:Gynecomastia Hyperlipidemia DX:Hyperlipidemia Hypogonadotropic hypogonadism (CMS/HCC) DX:Hypogonadotropic hypogonadism (HCC) Hypothyroidism DX:Hypothyroidism; COMMENT: ON ARMOUR THYROID Left leg DVT (CMS/HCC) DX:Left leg DVT (HCC); COMMENT: POST-OP, peroneal and posterior Malignant melanoma of scalp (CMS/HCC) DX:Malignant melanoma of scalp (HCC) Migraine headache DX:Migraine headache NATALIYA on CPAP DX:NATALIYA on CPAP; COMMENT: Mild severity on home sleep study Partial tear of left Achilles tendon DX:Partial tear of left Achilles tendon Peripheral neuropathy DX:Peripheral neuropathy; COMMENT: -likely versus myopathy Pernio DX:Pernio; COMMENT: ( development of cold induced erythrocyanotic skin lesions) Rheumatoid arthritis (CMS/HCC) DX:Rheumatoid arthritis (HCC) Right brachial plexitis DX:Right brachial plexitis Seizure disorder (CMS/HCC) DX:Seizure disorder (HCC); COMMENT: quiescent Transaminitis DX:Transaminitis; COMMENT: CHRONIC Past Surgical History: Procedure Laterality Date ANKLE FRACTURE SURGERY Bilateral PROCEDURE: SC OPEN TREATMENT MEDIAL MALLEOLUS FRACTURE COLONOSCOPY 07/14/2020 PROCEDURE: HISTORICAL COLONOSCOPY; COMMENT: AND BIOPSY OF COLON FINGER SURGERY Left thumb, trapeziectomy w/ interpositional arthroplasty; done by Dr Roberts at [facility] KNEE ARTHROSCOPY W/ MENISCAL REPAIR Right 08/14/2013 PROCEDURE: SC ARTHROSCOPY KNEE W/MENISCUS RPR MEDIAL/LATERAL; COMMENT: partial medial meniscectomy KNEE SURGERY Bilateral PROCEDURE: HISTORICAL KNEE SURGERY LEG SURGERY 08/19/2017 PROCEDURE: HISTORICAL LEG SURGERY; COMMENT: Repair of quadriceps tendon OTHER SURGICAL HISTORY 07/14/2020 PROCEDURE: SC ECHO TRANSTHORAC R-T 2D W/WO M-MODE REC COMP; COMMENT: ABNORMAL OTHER SURGICAL HISTORY 04/13/2020 PROCEDURE: HISTORY OTHER; COMMENT: Melanoma excised scalp/sentinel node left neck OTHER SURGICAL HISTORY 07/01/2019 PROCEDURE: HISTORY OTHER; COMMENT: Reconstruction triceps tendon with Achilles tendon allograft left elbow OTHER SURGICAL HISTORY 08/19/2017 PROCEDURE: HISTORY OTHER; COMMENT: Repair of quadriceps tendon OTHER SURGICAL HISTORY 08/19/2017 PROCEDURE: SC RPR 1 TORN LIGM&/CAPSL KNE COLTRL&CRUCIATE OTHER [...] right shoulder OTHER SURGICAL HISTORY 06/19/2021 PROCEDURE: SC ECHO TRANSTHORAC R-T 2D W/WO M-MODE REC COMP OTHER SURGICAL HISTORY Left 07/01/2019 PROCEDURE: HISTORICAL ARM SURGERY; COMMENT: Reconstruction triceps tendon with Achilles tendon allograft left elbow TOTAL KNEE ARTHROPLASTY Right 06/07/2015 PROCEDURE: SC ARTHRP KNE CONDYLE&PLATU MEDIAL&LAT COMPARTMENTS Denies anesthesia complications Allergies Allergen Reactions Adhesive Rash No current facility-administered medications on file prior to encounter. Current Outpatient Medications on File Prior to Encounter Medication Sig Dispense Refill aspirin 81 mg EC tablet Take 1 tablet (81 mg total) by mouth 1 (one) time each day. buPROPion XL (WELLBUTRIN XL) 150 mg 24 hr tablet Take 1 tablet (150 mg total) by mouth 1 (one) timeeach day. Do not crush, chew, or split. buPROPion XL (WELLBUTRIN XL) 300 mg 24 hr tablet Take 1 tablet (300 mg total) by mouth 1 (one) timeeach day. Do not crush, chew, or split. fluticasone HFA (FLOVENT HFA) 220 mcg/actuation inhaler Inhale 1 puff by mouth 2 (two) times a day.Rinse mouth with water after use to reduce aftertaste and incidence of candidiasis. Do not swallow. hjggkzbpjvs-bkxsmluyyevi-fcqnyktfbf (Trelegy Ellipta) 100-62.5-25 mcg inhaler Inhale 1 puff (100 mcg total) by mouth 1 (one) time each day. Rinse mouth with water after use to reduce aftertaste and incidence of candidiasis. Do not swallow. furosemide (LASIX) 20 mg tablet TAKE 1 TABLET BY MOUTH EVERY DAY 90 tablet 1 gabapentin (NEURONTIN) 400 mg capsule Take 1 capsule (400 mg total) by mouth at bedtime. loperamide (IMODIUM A-D) 2 mg tablet Take 1 tablet (2 mg total) by mouth 2 (two) times a day if needed for diarrhea. montelukast (SINGULAIR) 10 mg tablet Take 1 [...] (1 mg total) by mouth at bedtime. sacubitriL-valsartan (Entresto) 24-26 mg per tablet Take 1 tablet by mouth 2 (two) times a day. 180each 3 SUMAtriptan (IMITREX) 100 mg tablet Take 1 tablet (100 mg total) by mouth 1 (one) time if needed for migraine. May repeat dose once in 2 hours if no relief. Do not exceed 2 doses in 24 hours. thyroid, pork, (ARMOUR THYROID) 15 mg tablet Take 5 tablets (75 mg total) by mouth 1 (one) time each day. tramadol HCl (TRAMADOL ORAL) Take 50 mg by mouth if needed. vedolizumab (ENTYVIO) 300 mg recon soln Infuse [...] hours if needed for nausea or vomiting. [DISCONTINUED] famotidine (PEPCID) 20 mg tablet Take 1 tablet (20 mg total) by mouth 1 (one) time each day. (Patient not taking: Reported on 10/12/2024) [DISCONTINUED] metoprolol succinate (TOPROL-XL) 25 mg 24 hr tablet Take 1 tablet (25 mg total) by mouth 1 (one) time each day. Do not crush or chew. Current In-hospital Medications Prior to Admission medications Medication Sig Start Date End Date Taking? Authorizing Provider aspirin 81 mg EC tablet Take 1 tablet (81 mg total) by mouth 1 (one) time each day. Yes Historical Provider, buPROPion XL (WELLBUTRIN XL) 150 mg 24 hr tablet Take 1 tablet (150 mg total) by mouth 1 (one) timeeach day. Do not crush, chew, or split. Yes Historical Provider, buPROPion XL (WELLBUTRIN XL) 300 mg 24 hr tablet Take 1 tablet (300 mg total) by mouth 1 (one) timeeach day. Do not crush, chew, or split. Yes Historical Provider, ezetimibe (ZETIA) 10 mg tablet TAKE 1 TABLET BY MOUTH EVERY DAY 09/30/24 Yes Mary Jay MD famotidine (PEPCID) 40 mg tablet Take 1 tablet (40 mg total) by mouth 1 (one) time each day. Yes Historical Provider, fluticasone HFA (FLOVENT HFA) 220 mcg/actuation inhaler Inhale 1 puff by mouth 2 (two) times a day.Rinse mouth with water after use to reduce aftertaste and incidence of candidiasis. Do not swallow.Yes Historical Provider, gzvmevdzhky-ftanxcpcpkyb-eomjiponpx (Trelegy Ellipta) 100-62.5-25 mcg inhaler Inhale 1 puff (100 mcg total) by mouth 1 (one) time each day. Rinse mouth with water after use to reduce aftertaste and incidence of candidiasis. Do not swallow. Yes Historical Provider, furosemide (LASIX) 20 mg tablet TAKE 1 TABLET BY MOUTH EVERY DAY 08/17/24 Yes Verito Burt NP gabapentin (NEURONTIN) 400 mg capsule Take 1 capsule (400 mg total) by mouth at bedtime. Yes Historical Provider, loperamide (IMODIUM A-D) 2 mg tablet Take 1 tablet (2 mg total) by mouth 2 (two) times a day if needed for diarrhea. Yes Historical Provider, metoprolol succinate (TOPROL-XL) 25 mg 24 hr tablet Take 1 tablet (25 mg total) by mouth 1 (one) time each day. Do not crush or chew. 10/09/24 Yes Berta Arroyo NP montelukast (SINGULAIR) 10 mg tablet Take 1 tablet (10 mg total) by mouth at bedtime. Yes Historical Provider, niacin 500 mg tablet Take 1 tablet (500 mg total) by mouth 1 (one) time each day with breakfast. Yes Historical Provider, primidone (MYSOLINE) 50 mg tablet Take 1 tablet (50 mg total) by mouth at bedtime. Yes Historical Provider, rOPINIRole (REQUIP) 1 mg tablet Take 1 tablet (1 mg total) by mouth at bedtime. Yes Historical Provider, sacubitriL-valsartan (Entresto) 24-26 mg per tablet Take 1 tablet by mouth 2 (two) times a day. 08/14/24 Yes Berta Arroyo NP spironolactone (ALDACTONE) 25 mg tablet TAKE 1 TABLET BY MOUTH EVERY DAY 10/01/24 Yes Mary Bourne-MarbellaMD SUMAtriptan (IMITREX) 100 mg tablet Take 1 tablet (100 mg total) by mouth 1 (one) time if needed for migraine. May repeat dose once in 2 hours if no relief. Do not exceed 2 doses in 24 hours. Yes Historical Provider, thyroid, pork, (ARMOUR THYROID) 15 mg tablet Take 5 tablets (75 mg total) by mouth 1 (one) time each day. Yes Historical Provider, tramadol HCl (TRAMADOL ORAL) Take 50 mg by mouth if needed. Yes Historical Provider, vedolizumab (ENTYVIO) 300 mg recon soln Infuse 5 mL (300 mg total) into a venous catheter every 30 (thirty) days. Yes Historical Provider, venlafaxine (EFFEXOR) 37.5 mg tablet Take 1 tablet (37.5 mg total) by mouth 2 (two) times a day. Yes Historical Provider, vibegron (GEMTESA) 75 mg tablet tablet Take 1 tablet (75 mg total) by mouth at bedtime. Yes Historical Provider, dapagliflozin propanediol (FARXIGA) 10 mg tablet Take 1 tablet (10 mg total) by mouth 1 (one) time each day. Historical Provider, ondansetron ODT (ZOFRAN-ODT) 4 mg disintegrating tablet Dissolve 1 tablet (4 mg total) on top of the tongue every 8 (eight) hours if needed for nausea or vomiting. Historical Provider, famotidine (PEPCID) 20 mg tablet Take 1 tablet (20 mg total) by mouth 1 (one) time each day. Patient not taking: Reported on 10/12/2024 10/12/24 Historical Provider, metoprolol succinate (TOPROL-XL) 25 mg 24 hr tablet Take 1 tablet (25 mg total) by mouth 1 (one) time each day. Do not crush or chew. 10/09/24 Historical Provider, Social History Tobacco Use Smoking status: Never Smokeless tobacco: Never Substance Use Topics Alcohol use: Never Drug use: Never Is the patient a current smoker (e.g. cigarette, cigar, pip, e-cigarette, or mariajuana)? Yes [] No[] Patient previously instructed to abstain from smoking on the day of procedure? Yes [] No[] Patient smoked on the day of procedure? Yes [] No[] ASPIRE smoking VBR: [] Not interested in quitting [] Interested in quitting- referred to treatment [] Interested in quitting - treatment provided Visit Vitals BP (!) 144/93 Pulse 87 Temp 37 ??C (98.6 ??F) Resp 16 SpO2 96% Smoking Status Never LABS: No results found for: WBC , HGB , HCT , MCV , PLT Lab Results Component Value Date GLUCOSE 92 09/25/2024 CALCIUM 9.2 09/25/2024 NA 142 09/25/2024 K 5.5 (H) 09/25/2024 CO2 21 09/25/2024 CL 101 09/25/2024 BUN 29 (H) 09/25/2024 CREATININE 1.15 09/25/2024 No results found for: INR , PROTIME No results found for: PTT EKG Encounter Date: 10/12/24 ECG 12 lead Result Value Ventricular Rate ECG 79 Atrial Rate 79 P-R Interval 170 QRS Duration 126 Q-T Interval 360 QTc 412 P Wave Blanchard 67 R Blanchard -66 T Blanchard 6 ECG Interpretation Normal sinus rhythm Left axis deviation Non-specific intra-ventricular conduction block T wave abnormality, consider lateral ischemia Abnormal ECG When compared with ECG of 22-JUL-2024 13:12, Nonspecific T wave abnormality now evident in Inferior leads and lateral leads Confirmed by MARY JAY ([id number]) on 10/12/2024 9:38:38 AM *Note: Due to a large number of results and/or encounters for the requested time period, some results have not been displayed. A complete set of results can be found in Results Review. ECHO No results found for this or any previous visit. CATH No results found for this or any previous visit. 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 Anesthesia Evaluation Patient summary reviewed Airway Mallampati: II Dental - normal exam Pulmonary - normal exam Cardiovascular - normal exam Neuro/Psych GI/Hepatic/Renal Endo/Other Abdominal PONV RISK SCORE: 1 Vitals: 10/15/24 0935 BP: (!) 144/93 Pulse: 87 Resp: 16 Temp: 37 ??C (98.6 ??F) SpO2: 96% SpO2 Readings from Last 1 Encounters: 10/15/24 96% No results found for: WBC , RBC , HGB , HCT , PLT , MCV Allergies Allergen Reactions Adhesive Rash STOP BANG: STOP-Bang Total Score: 5 (10/15/2024 9:52 AM) NPO Status: Time of Last Liquid: 1800 Time of Last Solid: 1800 documented in this encounter Plan of Treatment Upcoming Encounters Date Type Department Care Team (Late st Contact Info) Description 12/22/2024 11:00 AM EDT Ancillary Procedure [facility] Cardiology [facility] [address] [place] [id number] 07/06/2025 10:50 AM EST Office Visit [facility] [address] [place] [id number] Mary Jay MD [address] [place] [address] [address] [place] [address] documented as of this encounter Visit Diagnoses Not on filedocumented in this encounter Administered Medications Inactive Administered Medications - up to 3 most recent administrations Medication Order MAR Action Action Date Dose Rate Site fentaNYL (PF) (SUBLIMAZE) injection intravenous, As needed, Starting on Roxane 10/15/24 at 1129, Anesthesia Intraprocedure Given 10/15/2024 11:29 AM EST 100 mcg lactated Ringer's infusion 100 mL/hr, intravenous, Continuous, Starting on Roxane 10/15/24 at 1145, Preprocedure New Bag 10/15/2024 11:29 AM EST lidocaine (PF) (XYLOCAINE-MPF) 2 % injection injection, As needed, Starting on Roxane 10/15/24 at 1135, Anesthesia Intraprocedure Given 10/15/2024 11:35 AM EST 100 mg midazolam (VERSED) injection intravenous, As needed, Starting on Roxane 10/15/24 at 1129, Anesthesia Intraprocedure Given 10/15/2024 11:29 AM EST 2 mg propofoL (DIPRIVAN) infusion 10 mg/mL intravenous, Continuous PRN, Starting on Roxane 10/15/24 at 1135, Anesthesia Intraprocedure New Bag 10/15/2024 11:35 AM EST 100 mcg/kg/min 56.34 mL/hr propofoL (DIPRIVAN) injection intravenous, As needed, Starting on Roxane 10/15/24 at 1135, Anesthesia Intraprocedure Given 10/15/2024 11:35 AM EST 100 mg documented in this encounter Care Teams News Videotape Editor Relationship Specialty Start Date End Date Piero Echevarria MD [address] [place] [address] PCP - General Internal Medicine 12/21/20 documented as of this encounter
--- OUTSIDE RECORDS SUMMARY | 2024-11-09 12:24 | XMS_ITS | Encounter Summary ---
Author Organization [facility] Address [address] [place] [address] Care Team Providers Care Town Planner Name Role Phone Piero Echevarria MD Primary Care Provider [phone] Encounter Details Date Type Department Care Team (Late st Contact Info) Description 10/12/2024 Telephone Orthopedic Surgery - [place] [address] [place] [phone] Lor Rao Social History Tobacco Use Types Packs/Day Years [...] as of this encounter Progress Notes * Lor Rao - 10/12/2024 5:24 PM EST Spoke with patient to confirm the change in his arrival time for surgery this 10/15/2024. Patient is to arrive at [facility] for 9:15 for a 10:45 surgery. documented in this encounter Plan of Treatment Upcoming Encounters Date Type Department Care Team (Late st Contact Info) Description 12/22/2024 11:00 AM EDT Ancillary Procedure [facility] Cardiology [facility] [address] [place] [address] 07/06/2025 10:50 AM EST Office Visit [facility] Cardiology [facility] [address] [place] [address] [address] [place] [address] Hari Emanuel MD [address] [place] [address] [address] [place] [address] documented as of this encounter Visit Diagnoses Not on filedocumented in this encounter Care Teams Town Planner Relationship Specialty Start Date End Date Piero Echevarria MD [address] [place] [address] [address] [place] [address] PCP - General Internal Medicine 12/21/20 documented as of this encounter
--- OUTSIDE RECORDS SUMMARY | 2024-11-09 12:24 | XMS_ITS | Patient Health Record ---
Author Organization [facility] [address] Address [address] [facility] [address] [place] [address] Care Team Providers Care Scout Leaser Name Role Phone LEX Peña MD [phone] Reason For Referral No Information Medications Medication SIG (Take, Route, Frequency, Duration) Notes Start Date End Date Status Testosterone Cypionate 200 MG/ML 0.2ML Intramuscular 2/week for 150 days 02/12/2017 Active Arimidex 1 MG 1 tablet Orally Once a day for 30 days 05/31/2015 Active clomiPHENE Citrate 50 mg 1 tablet Orally Once a day for 30 days 05/31/2015 Active Syringe (Disposable) 1 ML as directed 02/12/2017 Active Needle (Disp) 22G X 1 as directed 02/12/2017 Active Insulin Syringe 29G X 1/2 0.5 ML as directed 02/12/2017 Active Problems Problem Type SNOMED Code ICD Code Onset Dates Problem Status W/U Status Risk Notes Problem 251524242 Dyslipidemia (272.4) Active confirmed Problem Dyslipidemia (704247859) Dyslipidemia (E78.5) Active confirmed Problem Androgen deficiency (73939405) Testosterone deficiency (E29.1) Active confirmed Problem Male hypogonadism (21925387) Male hypogonadism (E29.1) Active confirmed Problem Disorder of adrenal gland (76973530) 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) Active confirmed Problem 42445683 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 Problem 23672718 Crohns colitis, without complications (K50.10) Active confirmed Plan Of Treatment Pending Test Test Name Order Date HEMATOCRIT 05/29/2016 HEMOGLOBIN 05/29/2016 Testosterone, Free, Bioavailable and [place], [place] (90810) 05/29/2016 Estrone (76350) 05/29/2016 DHEA Sulfate, Immunoassay (402) 05/29/20 16 ESTRADIOL, ULTRASENSITIVE LC/MS/MS (3028 9) 05/29/2016 DIHYDROTESTOSTERONE, LC/MS/MS 05/29/2016 Future Test Test Name Order Date VITAMIN D, 25-HYDROXY, LC/MS/MS (24112) 01/06/2016 HOMOCYSTEINE, CARDIOVASCULAR (32482) 02/2016 PREGNENOLONE, LC/MS/MS 01/06/2016 Cardio IQ Apolipoprotein A-1 (64415) 02/2016 Cardio IQ hs-CRP (40872) 01/06/2016 Cardio IQ Lipid Panel (Sindy sterol, Total HDL Cholesterol, Triglycerides) (15829) 01/06/2016 Cardio IQ Lipoprotein (a) (97879) 2015 Cardio IQ Lp-PLA2 (PLAC) (inactive 72243 016) 01/06/2016 Cardio IQ Lipoprotein Fractionation, Ion Mobility-- 01/06/2016 Medical (General) History Medical History History ICD Code Arthritis Unknown myopathy
--- OUTSIDE RECORDS SUMMARY | 2024-11-09 12:25 | XMS_ITS | Data Portability ---
Author Organization [place] - [facility], Allergy Address [address] [place] [id number] Care Team Providers Care Dealer Compliance Representative Name Role Phone NOAM MCGUIRE Primary Care Provider Assessment Encounter Date Assessment Date Assessment LastModified by Organization Details LastModified Time 07/06/2024 07/06/2024 64-year-old male presents today for evaluation after PET scan showed some activity in the posterior pharynx at the level of the base of the tongue. I reviewed the images. There is no ulceration or mass in this region. I would not recommend any further intervention for this region. I did recommend reassessment should he develop any sore throat, dysphagia, otalgia. He does have a 1.5 cm left level 5 node which is tender for which he had FNA which was consistent with metastatic melanoma (initial resection on the scalp in 2019). After discussing with Dr. Boo, who would not proceed with surgical intervention in this region, will send referral to [facility]. Incidentally, he does have a small septal perforation and he had some minor crusting and bleeding along the posterior margin. We reviewed epistaxis precautions. [email or web address] Not available 07/06/2024 15:26:04 Plan of Treatment Reminders Order Date Submit Date Provider Last Modified By Organization Details Last Modified Time Details Appointments None recorded. Lab None recorded. Referral head and neck referral - Attn: Shirley. Referral for malignant melanoma. Thank you. 2023 024 [email or web address] 2 [facility], [address] [facility], [place], [address], 08:15:18 Procedures None recorded. Surgeries None recorded. Imaging None recorded. Medication Orders None recorded. Patient TargetsNo targets recorded. Patient InstructionsNo instructions recorded. Reason for Referral Head And Neck Referral for M alignant melanoma Attn: Shirley. Referral for malignant melanoma. Thank you. 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 2016 Other specified disorders of temporoma ndibular joint; Note: Date Diagnosed : 05/03/2017 3:07 PM (M26.69) Not Available [facility] 4 03:26:23 Tinnitus of left ear [id number] 06 Active 2016 Tinnitus, left ear; Note: Date Diagnosed : 05/03/2017 1:18 PM (H93.12) Not Available [facility] 4 03:26:24 Malignant melanoma 518909363 Active 2023 JESSICA MENDOSA MD [address] [place] [address], [place], [address] , [facility] 4 15:16:38 Abnormal findings on diagnosti c imaging of skull and head 356153668 Active 2023 JESSICA MENDOSA MD [address] [place] [address], [place], [phone] , [facility] 4 15:16:49 Problem Notes None recorded. Procedures Surgical History Date Name Laterality Status Provider Name and Address Organization Details Recorded Time 07/06/20 24 Fiberoptic Laryngoscopy (Comprehensive) completed JESSICA MENDOSA MD [address] [place] [address],[place] [address], [place], [address], [place] - [facility] 07/06/2024 15:21:57 Imaging Results None recorded. Procedure Notes None recorded. Medical Equipment None Reported. Allergies No known drug allergies Medications Name Sig Start Date Stop Date Status Note LastModified by Organization Details LastModified Time celecoxib 200 mg capsule TAKE 1 CAPSULE BY MOUTH DAILY NEEDED FOR PAIN active Not Available Not Available No t Available venlafaxine ER 37.5 mg capsule,ext ended release 24 hr TAKE 1 CAPSULE BY MOUTH DIRECTED WITH 75MG CAPSULE FOR TOTAL DOSE = 112.5MG 07/06 completed Not Available Not Available Not Available prednisone 10 mg tablet TAKE 4 TABS DAILY X 3 DAYS, 3 TABS X 3 DAYS, 2 TABS X 3 DAYS THEN 1 TAB X 3 DAYS 07/06 completed Not Available Not Available Not Available venlafaxine ER 75 mg capsule,ext ended release 24 hr TAKE 1 CAPSULE BY MOUTH EVERY MORNING WITH 150 MG CAPSULE FOR TOTAL DOSE = 225 MG 07/06 completed Not Available Not Available Not Available ropinirole 1 mg tablet TAKE 1 TABLET BY MOUTH EVERY DAY active Not Available Not Available No t Available loperamide 2 mg capsule TAKE 1 CAPSULE BY MOUTH 2 TIMES A DAY NEEDED FOR LOOSE STOOL active Not Available Not Available No t Available benzonatate 200 mg capsule TAKE 1 CAPSULE BY MOUTH 3 TIMES A DAY, FOR 7 DAYS, NEEDED FOR COUGH 07/06 completed Not Available Not Available Not Available sumatriptan 100 mg tablet TAKE1 TABLET BY MOUTH ONCE NEEDED FOR MIGRAINE HEADACHE active Not Available Not Available No t Available hydrocodone 5 mg-acetamin ophen 325 mg tablet TAKE 1 TABLET BY MOUTH EVERY 6 HOURS NEEDED FOR PAIN 07/06 completed Not Available Not Available Not Available betamethaso ne, augmented 0.05 % topical cream APPLY TO AFFECTED AREAS TWICE DAILY FOR 2 WEEKS, THEN STOP FOR 1 WEEK REPEAT NEEDED active Not Available Not Available No t Available sertraline 100 mg tablet TAKE 1 TABLET BY MOUTH ONCE A DAY AFTER 2 WEEKS, DECREASE TO 1/2 TABLET (50 MG). 07/06 completed Not Available Not Available Not Available venlafaxine ER 150 mg capsule,ext ended release 24 hr Take 1 capsule every day by oral route. active Not Available Not Available No t Available clopidogrel 75 mg tablet TAKE 1 TABLET BY MOUTH EVERY DAY active Not Available Not Available No t Available sulfamethox azole 800 mg-trimetho prim 160 mg tablet TAKE 1 TABLET BY MOUTH TWICE A DAY DIRECTED active Not Available Not Available No t Available aspirin 81 mg tablet,helen yed release TAKE 1 TABLET BY MOUTH EVERY DAY active Not Available Not Available No t Available tramadol 50 mg tablet TAKE 1-2 TABLETS BY MOUTH EVERY FOUR TO SIX HOURS NEEDED FOR PAIN active Not Available Not Available No t Available spironolact one 25 mg tablet TAKE 1 TABLET BY MOUTH EVERY DAY active Not Available Not Available No t Available pentoxifyll ine ER 400 mg tablet,exte nded release TAKE 1 TABLET BY MOUTH 3 TIMES A DAY active Not Available Not Available No t Available [place] Thyroid 15 mg tablet TAKE 5 TABLETS BY MOUTH DAILY active Not Available Not Available No t Available famotidine 20 mg tablet TAKE 1 TABLET BY MOUTH AT BEDTIME *AVOID EATING FOR 10 MINS AFTER EACH DOSE active Not Available Not Available No t Available primidone 250 mg tablet TAKE 1 TABLET BY MOUTH EVERYDAY AT BEDTIME active Not Available Not Available No t Available doxycycline monohydrate 100 mg capsule TAKE 1 CAPSULE BY MOUTH TWICE A DAY 07/06 completed Not Available Not Available Not Available venlafaxine 37.5 mg tablet START WITH 1 TABLET DAILY FOR THE 1ST TWO WEEKS. IF WELL TOLERATED , INCREASE TO 1 TAB TWICE DAILY 07/06 completed Not Available Not Available Not Available mirtazapine 30 mg tablet TAKE 1 TABLET BY MOUTH EVERY NIGHT ON NIGHTTIME AWAKENING 07/06 completed Not Available Not Available Not Available niacin 500 mg tablet TAKE 1 TABLET BY MOUTH TWICE A DAY active Not Available Not Available No t Available gabapentin 300 mg capsule TAKE 1 CAPSULE BY MOUTH EVERY DAY active Not Available Not Available No t Available sertraline 25 mg tablet TAKE 3 TABLETS BY MOUTH EVERY DAY 07/06 completed Not Available Not Available Not Available mirtazapine 45 mg tablet TAKE 1 TABLET BY MOUTH EVERYDAY AT BEDTIME active Not Available Not Available No t Available montelukast 10 mg tablet TAKE 1 TABLET BY MOUTH DAILY EVERY EVENING active Not Available Not Available No t Available codeine 10 mg-guaifene sin 100 mg/5 mL oral liquid TAKE 5 ML BY MOUTH EVERY 6 HOURS, FOR 7 DAYS, NEEDED FOR COUGH AND CONGESTIO N 07/06 completed Not Available Not Available Not Available fluticasone propionate 220 mcg/actuati on HFA aerosol inhaler INHALE 2 PUFFS TWICE A DAY 07/06 completed Not Available Not Available Not Available furosemide 20 mg tablet TAKE 1 TABLET BY MOUTH EVERY DAY active Not Available Not Available No t Available metoprolol succinate ER 25 mg tablet,exte nded release 24 hr TAKE 1 TABLET BY MOUTH EVERY DAY active Not Available Not Available No t Available methylpredn isolone 4 mg tablets in a dose pack TAKE 6 TABLETS ON DAY 1 DIRECTED ON PACKAGE AND DECREASE BY 1 TAB EACH DAY FOR A TOTAL OF 6 DAYS active Not Available Not Available No t Available naproxen 500 mg tablet TAKE 1 TABLET BY MOUTH TWICE A DAY WITH FOOD 07/06 completed Not Available Not Available Not Available amoxicillin 875 mg-potassiu m clavulanate 125 mg tablet TAKE 1 TABLET BY MOUTH EVERY 12 HOURS FOR 7 DAYS 07/06 completed Not Available Not Available Not Available amoxicillin 500 mg-potassiu m clavulanate 125 mg tablet TAKE 1 TABLET BY MOUTH EVERY 12 HOURS FOR 7 DAYS 07/06 completed Not Available Not Available Not Available ezetimibe 10 mg tablet TAKE 1 TABLET BY MOUTH EVERY DAY active Not Available Not Available No t Available bupropion HCl XL 300 mg 24 hr tablet, extended release TAKE 1 TABLET BY MOUTH ONCE A DAY WITH 150 MG TABLET FOR TOTAL DOSE = 450 MG. active Not Available Not Available No t Available bupropion HCl XL 150 mg 24 hr tablet, extended release TAKE 1 TABLET BY MOUTH ONCE A DAY WITH 300 MG TABLET FOR TOTAL DOSE = 450 MG. active Not Available Not Available No t Available alfuzosin ER 10 mg tablet,exte nded release 24 hr TAKE 1 TABLET BY MOUTH EVERYDAY AT BEDTIME active Not Available Not Available No t Available tadalafil 5 mg tablet TAKE 1 TABLET BY MOUTH EVERY DAY 07/06 completed Not Available Not Available Not Available tadalafil 10 mg tablet TAKE ONE TABLET BY MOUTH DAILY active Not Available Not Available No t Available pregabalin 50 mg capsule TAKE 1 CAPSULE BY MOUTH TWICE A DAY active Not Available Not Available No t Available Incruse Ellipta 62.5 mcg/actuati on powder for inhalation INHALE 1 PUFF DAILY 07/06 completed Not Available Not Available Not Available Entresto 49 mg-51 mg tablet TAKE 1 TABLET BY MOUTH 2 TIMES DAILY. active Not Available Not Available No t Available Entresto 24 mg-26 mg tablet TAKE 1 TABLET BY MOUTH TWICE A DAY 07/06 completed Not Available Not Available Not Available Vraylar 1.5 mg capsule TAKE 1 CAPSULE BY MOUTH ONCE A DAY STARTING 07/06 completed Not Available Not Available Not Available Vraylar 4.5 mg capsule TAKE 1 CAPSULE BY MOUTH EVERY DAY 07/06 completed Not Available Not Available Not Available Vraylar 3 mg capsule TAKE 1 CAPSULE BY MOUTH ONCE A DAY AFTER 2 WEEKS, DECREASE TO 1.5 MG CAPSULES. 07/06 completed Not Available Not Available Not Available Dupixent 300 mg/2 mL subcutaneou s syringe 07/06 completed Not Available Not Available Not Available Trelegy Ellipta 100 mcg-62.5 mcg-25 mcg powder for inhalation INHALE 1 PUFF EVERY MORNING active Not Available Not Available No t Available Wixela Inhub 500 mcg-50 mcg/dose powder for inhalation INHALE 1 PUFF TWICE A DAY *RINSE MOUTH AND THROAT AFTER USE 07/06 completed Not Available Not Available Not Available Breztri Aerosphere 160 mcg-9mcg-4. 8mcg/actuat ion HFA aerosol inhaler active Not Available Not Available Not Available Gemtesa 75 mg tablet TAKE 1 TABLET BY MOUTH EVERY DAY active Not Available Not Available No t Available Vitals Date Recorded Body height Body mass index (BMI) Body weight Provider Name and Address Organization Details Last Updated DateTime 07/06/2024 182.88 cm 27.8 kg/m2 76853.44 g Macy Humphrey [place] - [facility] 07/06/2024 11:28:28 Social History None recorded. Functional Status None recorded. Mental Status None recorded. Family History Nothing Reported. Medical History Condition Response Arthritis Y Anxiety Y Cancer Y Migraines Y Depression Y Asthma Y Past Encounters Encounter ID Performer Location Encounter Start Date Encounter Closed Date Diagnosis/Indication Diagnosis SNOMED-CT Code Diagnosis ICD10 Code Diagnosis Note [id number] [facility] [address] [place] [address] 07/06/2024 10:57:21 07/06/2024 11:52:37 Malignant melanoma 761050542 C43.9 Abnormal f indings on diagnostic imaging of skull and head 209547833 R93.0 Health Concerns Section Related Observation LastModified by Organization Detai ls LastModified Time None Recorded Concern Status LastModified by Organization Details LastModified Time None Recorded Advance Directives Directive None Recorded Payers Encounter Date Sequence Insurance Name Policy Number Policy Hunt Covered Member ID Hunt Member ID Guarantor Name 07/06/2024 2 [place] Mirza Galvan [id number] Mirza Galvan 07/06/2024 1 MEDICARE [place]: [facility] Mirza Galvan [id number] Mirza Galvan Notes Date Note Type Note Provider Name and Address Organization Details Recorded Time 07/06/2024 text/html 64-year-old male presents today for evaluation of abnormal PET scan. He has a history of melanoma of the scalp which was resected in 2019. He had a enlarged left level 5 node where FNA showed malignant melanoma, metastatic. He has had evaluation by oncology and is not a candidate for neoadjuvant therapy or immunotherapy. He was recommended to have surgical excision. As part of his workup he had a PET scan which showed Increased metabolic activity in the right oropharynx at the level of the base of the tongue posteriorly without any CT correlate for which he presents today. He denies sore throat, dysphagia, dysphonia, otalgia. He does get recurrent epistaxis. He reports a history of nasal surgery in the past. He does note that he will bite his tongue at times. JESSICA MENDOSA MD [address] [place] [address], [place], [address], [place] - [facility] 07/06/2024 15:29:38
--- OUTSIDE RECORDS SUMMARY | 2024-11-09 12:25 | XMS_ITS | Clinical Summary ---
Author Organization [facility] Address [address] [place] [address] Care Team Providers Care Medical Claims Analyst Name Role Phone Piero Echevarria MD Primary Care Provider [phone] Allergies Active Allergy Reactions Criticality Noted Date Comments Adhesive Tape Rash Low 08/16/2021 Medications Medication Sig Dispensed Refills Start Date End Date Status montelukast (SINGULAIR) 10 MG tablet Take 10 mg by mouth every night at bedtime. 0 05/06/2015 Active rOPINIRole (REQUIP) 1 MG tablet Take 1 mg by mouth every night at bedtime. 0 04/22/2015 Active Testosterone Cypionate (DEPOTESTOTERONE CYPIONATE) 200 MG/ML injection Inject 100 mg as directed See admin instructions. INJECT INTRAMUSCULARLY EVERY WEEK ON MONDAYS AND THURSDAYS. 0 04/11/2015 Active Nutritional Supplements (DHEA PO) Take 40 mg by mouth every night at bedtime. PER PATIENT TAKES DHEA ER 40MG CAPSULES QHS 0 Active SUMAtriptan (IMITREX) 6 MG/0.5ML SOLN Inject 6 mg under the skin once. LAST TIME USED OVER 3 MONTHS PER PATIENT. 0 Active SUMAtriptan (IMITREX) 100 MG tablet Take 100 mg by mouth daily as needed for migraine. PER PATIENT LAST DOSE OVER 3 MONTHS AGO. 0 Active CIALIS 5 MG tablet Take 5 mg by mouth every night at bedtime. 0 03/24/2016 Active ADVAIR DISKUS 500-50 MCG/DOSE DISKUS Inhale 1 inhalation into the lungs every 12 (twelve) hours. 0 07/11/2017 Active niacin (NIASPAN) ER tablet 500 mg Take 500 mg by mouth 2 (two) times a day. 0 07/16/2017 Active omeprazole (PRILOSEC) 40 MG capsule Take 40 mg by mouth daily. 0 07/11/2017 Active LYRICA 50 MG capsule Take 50 mg by mouth every night at bedtime. 0 07/26/2017 Active pentoxifylline (TRENTAL) 400 MG CR tablet Take 400 mg by mouth 3 (three) times a day with meals. 0 06/21/2017 Active primidone (MYSOLINE) 50 MG tablet Take 50 mg by mouth every night at bedtime. 0 07/20/2017 Active INCRUSE ELLIPTA 62.5 MCG/INH AEPB Inhale 1 puff into the lungs daily. 0 07/11/2017 Active gabapentin (NEURONTIN) 300 MG capsule Take 300 mg by mouth every night at bedtime. 0 Active VRAYLAR 3 MG CAPS TAKE 1 TABLET BY MOUTH AT BEDTIME - STOP 4 MG 3 10/31/2018 Active FLOVENT HFA 220 MCG/ACT inhaler INHALE 2 PUFFS BY MOUTH 2 TIMES A DAY, RINSE MOUTH AND THROAT AFTER USE 12 11/12/2018 Active ARMOUR THYROID 15 MG tablet TAKE 5 TABLET BY MOUTH DAILY 5 11/04/2018 Active busPIRone (BUSPAR) 5 MG tablet Take 15 mg by mouth 2 (two) times a day. 0 Active loperamide (IMODIUM) 2 MG capsule Take 2 mg by mouth 2 (two) times a day as needed for diarrhea. 0 Active traZODone (DESYREL) 50 MG tablet Take 50 mg by mouth every night at bedtime. 0 Active sertraline (ZOLOFT) 25 MG tablet Take 25 mg by mouth every evening. 3 07/13/2019 Active DUPIXENT 300 MG/2ML SOSY Inject 1 Dose as directed every 14 (fourteen) days. Last dose : 08/08/21 0 11/27/2019 Active buPROPion (WELLBUTRIN SR) 150 MG 12 hr tablet 150 mg. 0 01/05/2020 Active citalopram (CeleXA) 20 MG tablet Take 20 mg by mouth. 0 02/14/2021 Acti ve clobetasol (TEMOVATE) 0.05 % external solution PLEASE SEE ATTACHED FOR DETAILED DIRECTIONS 0 11/25/2020 Active cloNIDine (CATAPRES) tablet 0.1 mg TAKE 2 TABLETS BY MOUTH AT BEDTIME X 1 WEEK THEN TAKE 3 TABLETS AT BEDTIME 0 02/18/2021 Active vedolizumab (ENTYVIO) 300 MG SOLR injection Inject 300 mg into the vein. 0 Active oxyCODONE-acetami nophen (PERCOCET) 5-325 MG per tablet Take 1 tablet by mouth every 6 (six) hours as needed for pain. 28 tablet 0 09/05/2021 Active carvedilol (COREG) 3.125 MG tablet Take 3.125 mg by mouth 2 (two) times a day with meals. 0 Active lisinopril (PRINIVIL,ZESTRIL ) tablet 2.5 mg Take 2.5 mg by mouth daily. 0 Active buPROPion (WELLBUTRIN XL) 300 MG 24 hr tablet Take 300 mg by mouth daily. 0 Active Active Problems Problem Noted Date Diagnosed Date Primary osteoarthritis of right hip 09/05/2021 Olecranon bursitis, left elbow 01/07/2020 Generalized anxiety disorder 06/24/2019 Moderate asthma 06/24/2019 BPH with urinary obstruction 06/24/2019 Crohn's disease of colon without complication Depression 06/24/2019 DVT, lower extremity, recurrent, left 06/24/2019 Erectile dysfunction 06/24/2019 Essential tremor 06/24/2019 Gynecomastia 06/24/2019 Hyperlipidemia 06/24/2019 Hypogonadotropic hypogonadism 06/24/2019 Acquired hypothyroidism 06/24/2019 Migraine headache 06/24/2019 Idiopathic progressive neuropathy 06/24/2019 Pernio 06/24/2019 Rheumatoid arthritis 06/24/2019 Transaminitis 06/24/2019 Partial rupture of triceps tendon, left, sequela 06/01/2019 S/P left shoulder arthroscop ic AC excision, acromioplasty and debridemnt of rotator cuff and labral tear 09/2410/02/2018 Achilles tendinitis of left lower extremity 12/31 Posterior tibialis tendon insufficiency 01/18/20 18 Primary osteoarthritis of right knee 06/07/2015 Resolved Problems Problem Noted Date Diagnosed Date Resolved Date Bursitis/tendonitis, shoulder 08/21/2018 10/02/2018 Arthritis of left acromioclavicular joint 08/21/2018 10/02/2018 Impingement syndrome of left shoulder 06/24/2018 10/02/2018 Primary localized osteoarthr osis of left shoulder region 06/24/2018 10/02/2018 Immunizations Name Administration Dates Next Due Covid-19 (Moderna 12+) 100mcg/0.5mL dosage 07/25,12/11/2020,11/13/2020 Social History Tobacco Use Types Packs/Day Years Used Date Smoking Tobacco: Never Smokeless Tobacco: Never Tobacco Cessation:Counseling Given: No Alcohol Use Standard Drinks/Week Comments No 0 (1 standard drink = 0.6 oz pur e alcohol) Sex and Gender Information Value Date Recorded Sex Assigned at Male 06/26/2019 11:07 AM EDT Gender Identity Male 09/05/2021 5:42 AM EST Sexual Orientation Not on file Job Start Date Occupation Industry Not on file Not on file Not on file Last Filed Vital Signs Vital Sign Reading Time Taken Comments Blood Pressure 121/76 08/05/2023 6:54 PM EST Pulse 89 08/05/2023 6:54 PM EST Temperature 37.2 ??C (99 ??F) 08/05/2023 6:54 PM EST Respiratory Rate 17 08/05/2023 6:54 PM EST Oxygen Saturation 95% 08/05/2023 6:54 PM EST Inhaled Oxygen Concentration - - Weight 93 kg (205 lb) 08/05/2023 6:54 PM EST Height 185.4 cm (6' 1 ) 08/05/2023 6:54 PM EST Body Mass Index 27.05 08/05/2023 6:54 PM EST Plan of Treatment Health Maintenance Due Date Last Done Comments Hepatitis C Screening 1961 Depression Screening 1973 BMI Counseling 1979 Preventative Health Evaluation 1979 Colon Cancer Screening (Colonoscopy) 2006 Pneumococcal Vaccine (2 of 2 - PCV) 12/26/2019 12/25/2018 COVID-19 Vaccine (2023-2 5 season) 2024 07/25/2021, 12/11/2020, 11/13/2020 Influenza Vaccine (#1) 2024 DTap / Tdap / Td (2 - Td or Tdap) 11/25/2029 11/26/2019 RSV Adult > 60+ Yrs or (1 - 1-dose 75+ series) 2036 Shingrix-Zoster Vaccine Completed 08/11/20 20, 06/07/2020 Hepatitis B Vaccines Aged Out No long er eligible based on patient's age to complete this topic RSV Ped < 20 months Aged Out No longe r eligible based on patient's age to complete this topic Medical Devices Implanted Type Area Audiovisual Equipment Operator Device Identifier Shelf Expiration Date Model / Serial / Lot Journey Uni Rtmed/Lt Lat Implanted:Qt y: 1 on 06/07/2015 by Chris Hairston MD at [facility] Total Joint Right: Knee [employer] 07/01/2024 [id number] / / [id number] Cement Simplex P Radiopaque Full Dose Bone - [id number] - [id number] Implanted:Qt y: 1 on 06/07/2015 by Chris Hairston MD at [facility] Right: Knee [employer] 10/01/2017 [id number] / / [id number] Component Femoral Journey Oxinium 6 Knee Right Medial Left L - [id number] - [id number] Implanted:Qt y: 1 on 06/07/2015 by Chris Hairston MD at [facility] Right: Knee [employer] 07/01/2025 [id number] / / [id number] Insert Tibial Journey 5-6 H11 Mm Right Medial Left Lateral - [id number] - [id number] Implanted:Qt y: 1 on 06/07/2015 by Chris Hairston MD at [facility] Right: Knee [employer] 12/31/2023 [id number] / / [id number] Knee Jrny Uni Oxin Fem W\Uni Tib & Inst - [id number] - [id number] Implanted:Qt y: 1 on 06/07/2015 by Chris Hairston MD at [facility] Right: Knee [employer] [id number] / / [place] Sut 2.4mm Cinclk W Specialty Department Supervisor - [id number] - [id number] Implanted:Qt y: 1 on 04/12/2016 by Chris Hairston MD at [facility] Right: Hip [employer] 01/13/2017 [id number] / / [id number] [place] Sut 2.4mm Cinclk W Specialty Department Supervisor - [id number] - [id number] Implanted:Qt y: 1 on 04/12/2016 by Chris Hairston MD at [facility] and Med Right: Hip [employer] 07/18/2017 [id number] / / [id number] [place] Suture Nanotack 1.4mm - [id number] - [id number] Implanted:Qt y: 2 on 04/12/2016 by Chris Hairston MD at [facility] and Med Right: Hip [employer] 07/02/2017 [id number] / / [id number] [place] Sut 2.4mm Cinclk W Specialty Department Supervisor - [id number] - [id number] Implanted:Qt y: 1 on 04/12/2016 by Chris Hairston MD at [facility] and Med Right: Hip [employer] 07/18/2016 [id number] / / [id number] [place] Suture Q-Fix Od2.8 Mm - [id number] - [id number] Implanted:Qt y: 1 on 07/01/2019 by Jett Rodriguez MD at [facility] and Med Left: Elbow [employer] 02/09/2022 [id number] / / [id number] Graft 16cm-19.4cmx 10-20mm Tt Frzn Achils Tndn Specs [facility] - [id number] - [id number] Implanted:Qt y: 1 on 07/01/2019 by Jett Rodriguez MD at [facility] Left: Elbow MUSCULOSKELETAL TRANSP FNDTN 01/31/2024 [id number] / [id number] / [place] Sut 5.5mm Fullthrd Med Insite Preld Fr Fbr Sprt Peek - [id number] - [id number] Implanted:Qt y: 2 on 02/03/2020 by Chase Ramirez MD at [facility] and Med Right: Shoulder [employer] 02/17/2022 [id number] / / [id number] Solidback Acetabular Shell 56f Stry-Howm 650-14-54d-7 16766 - [id number] Implanted:Qt y: 1 on 09/05/2021 by Chris Hairston MD at [facility] and Med Right: Hip [employer] [id number] 05/03/2024 700-04-56F / / [id number] Hip Insrt Poly X3 10deg 36mm Stry-Howm 531-16-51x-2 41302 - [id number] Implanted:Qt y: 1 on 09/05/2021 by Chris Hairston MD at [facility] Right: Hip [employer] [id number] 06/27/2024 623-10-36F / / [id number] Hip Stm Tzf Lopes #[address] Stry-Howm [id number] 8406 - [id number] Implanted:Qt y: 1 on 09/05/2021 by Chris Hairston MD at [facility] Right: Hip [employer] [id number] 12/05/2025 0253-6740 / / [id number] Hip Head Delta Tiffanie 36mm +7.5 Stry-Howm 7915-2-196-5 02517 - [id number] Implanted:Qt y: 1 on 09/05/2021 by Chris Hairston MD at [facility] Right: Hip [employer] [id number] 04/05/2026 6570-0-736 / / [id number] Advance Directives For more information, please contact: [phone] Latest Code Status on File Code Status Date Activated Date Inactivated Comments Full Code 09/05/2021 9:32 AM 09/06/2021 6:09 PM This co de status was ascertained in the following way: discussion with patient . Code Status History Code Status Date Activated Date Inactivated Comments Full Code 09/05/2021 5:29 AM 09/05/2021 9:32 AM This co de status was ascertained in the following way: discussion with patient . Full Code 06/07/2015 9:50 AM 06/09/2015 5:58 PM This code status was ascertained in the following way: discussion with patient. Full Code 06/01/2015 9:59 AM 06/07/2015 9:50 AM This code status was ascertained in the following way: discussion with patient. Care Teams Medical Claims Analyst Relationship Specialty Start Date End Date Piero Echevarria MD [address] [place] [id number] PCP - General Internal Medicine 08/19/17
--- OUTSIDE RECORDS SUMMARY | 2024-11-09 12:25 | XMS_ITS | Encounter Summary ---
Author Organization [facility] Address [address] [place] [address] Care Team Providers Care Blind Eyeletter Name Role Phone Piero Echevarria MD Primary Care Provider [phone] Reason for Visit * Reason Onset Date Comments Med Refill 10/09/2024 Metoprolol Encounter Details Date Type Department Care Team (Late st Contact Info) Description 10/09/2024 Telephone [facility] [address] [place] [id number] Hari Emanuel MD [address] [place] [address] Dr Seg[address] [place] [address] Med Refill (Metoprolol) Social History Tobacco Use Types Packs/Day Years [...] PM EST documented as of this encounter Ordered Prescriptions Prescription Sig Dispense Quantity Refills Last Filled Start Date End Date metoprolol succinate (TOPROL-XL) 25 mg 24 hr tablet Take 1 tablet (25 mg total) by mouth 1 (one) time each day. Do not crush or chew. 90 tablet 1 10/09/2024 documented in this encounter Progress Notes * Elizabeth Mo RN - 10/09/2024 2:49 PM EST EM 07/22/24, next 10/12/24 Metoprolol refills sent * Mireya Song - 10/09/2024 2:09 PM EST The patient called requesting a refill for metoprolol 25 mg, 1 tablet daily, 90 day supply, pharmacy confirmed. documented in this encounter Plan of Treatment Upcoming Encounters Date Type Department Care Team (Late st Contact Info) Description 12/22/2024 11:00 AM EDT Ancillary Procedure [facility] [address] [facility] [address] [place] [address] 07/06/2025 10:50 AM EST Office Visit [facility] Cardiology [facility] [address] [place] [address] Hari Emanuel MD [address] [place] [address] Dr Sanya [address] [place] [address] documented as of this encounter Visit Diagnoses Not on filedocumented in this encounter Discontinued Medications Medication Sig Discontinue Reason Start Date End Da te metoprolol succinate (TOPROL-XL) 25 mg 24 hr tablet Take 1 tablet (25 mg total) by mouth 1 (one) time each day. Do not crush or chew. Reorder 10/09/2024 documented as of this encounter Care Teams Blind Eyeletter Relationship Specialty Start Date End Date Piero Echevarria MD [address] [place] [address] [address] [place] [address] PCP - General Internal Medicine 12/21/20 documented as of this encounter
--- OUTSIDE RECORDS SUMMARY | 2024-11-09 12:25 | XMS_ITS | Clinical Summary ---
Author Organization [facility] Address [address] [place] [address] Phone Care Team Providers Care Automated Process Operator Name Role Phone Piero Echevarria MD Primary Care Provider [phone] Allergies Active Allergy Reactions Criticality Noted Date Comments Adhesive Rash Medium 10/04/2024 Medications gabapentin (NEURONTIN) 400 mg capsule Take 1 capsule (400 mg total) by mouth at bedtime. Active niacin 500 mg tablet Take 1 tablet (500 mg total) by mouth 1 (one) time each day with breakfast. Active dapagliflozin propanediol (FARXIGA) 10 mg tablet Take 1 tablet (10 mg total) by mouth 1 (one) time each day. Active venlafaxine (EFFEXOR) 37.5 mg tablet Take 1 tablet (37.5 mg total) by mouth 2 (two) times a day. Active rOPINIRole (REQUIP) 1 mg tablet Take 1 tablet (1 mg total) by mouth at bedtime. Active vibegron (GEMTESA) 75 mg tablet tablet Take 1 tablet (75 mg total) by mouth at bedtime. Active aspirin 81 mg EC tablet Take 1 tablet (81 mg total) by mouth 1 (one) time each day. Active primidone (MYSOLINE) 50 mg tablet Take 1 tablet (50 mg total) by mouth at bedtime. Active buPROPion XL (WELLBUTRIN XL) 150 mg 24 hr tablet Take 1 tablet (150 mg total) by mouth 1 (one) time each day. Do not crush, chew, or split. Active buPROPion XL (WELLBUTRIN XL) 300 mg 24 hr tablet Take 1 tablet (300 mg total) by mouth 1 (one) time each day. Do not crush, chew, or split. Active loperamide (IMODIUM A-D) 2 mg tablet Take 1 tablet (2 mg total) by mouth 2 (two) times a day if needed for diarrhea. Active montelukast (SINGULAIR) 10 mg tablet Take 1 tablet (10 mg total) by mouth at bedtime. Active ondansetron ODT (ZOFRAN-ODT) 4 mg disintegrating tablet Dissolve 1 tablet (4 mg total) on top of the tongue every 8 (eight) hours if needed for nausea or vomiting. Active fluticasone HFA (FLOVENT HFA) 220 mcg/actuation inhaler Inhale 1 puff by mouth 2 (two) times a day. Rinse mouth with water after use to reduce aftertaste and incidence of candidiasis. Do not swallow. Active SUMAtriptan (IMITREX) 100 mg tablet Take 1 tablet (100 mg total) by mouth 1 (one) time if needed for migraine. May repeat dose once in 2 hours if no relief. Do not exceed 2 doses in 24 hours. Active thyroid, pork, (ARMOUR THYROID) 15 mg tablet Take 5 tablets (75 mg total) by mouth 1 (one) time each day. Active vedolizumab (ENTYVIO) 300 mg recon soln Infuse 5 mL (300 mg total) into a venous catheter every 30 (thirty) days. Active sacubitriL-valsart an (Entresto) 24-26 mg per tablet Take 1 tablet by mouth 2 (two) times a day. 180 each 3 08/14/20 24 Active furosemide (LASIX) 20 mg tablet TAKE 1 TABLET BY MOUTH EVERY DAY 90 tablet 1 08/17/20 24 Active ezetimibe (ZETIA) 10 mg tabletIndications: Atherosclerotic heart disease of bill moore's slough coronary artery with other forms of angina pectoris (CMS/HCC) TAKE 1 TABLET BY MOUTH EVERY DAY 90 tablet 2 09/30/19 25 Active spironolactone (ALDACTONE) 25 mg tablet TAKE 1 TABLET BY MOUTH EVERY DAY 90 tablet 1 10/01/19 25 Active fluticasone-umecli dinium-vilanterol (Trelegy Ellipta) 100-62.5-25 mcg inhaler Inhale 1 puff (100 mcg total) by mouth 1 (one) time each day. Rinse mouth with water after use to reduce aftertaste and incidence of candidiasis. Do not swallow. Active metoprolol succinate (TOPROL-XL) 25 mg 24 hr tablet Take 1 tablet (25 mg total) by mouth 1 (one) time each day. Do not crush or chew. 90 tablet 1 10/09/19 25 Active famotidine (PEPCID) 40 mg tablet Take 1 tablet (40 mg total) by mouth 1 (one) time each day. Active famotidine (PEPCID) 20 mg tablet Take 1 tablet (20 mg total) by mouth 1 (one) time each day. 025 Discontinu ed(Discont inued by another clinician) tramadol HCl (TRAMADOL ORAL) Take 50 mg by mouth if needed. 025 Discontinu ed(Stop Taking at Discharge) ibuprofen (ADVIL,MOTRIN) 800 mg tablet Take 1 tablet (800 mg total) by mouth 2 (two) times a day for 15 days. 30 tablet 10/15/19 25 025 acetaminophen (TYLENOL 8 HOUR) 650 mg 8 hr tablet Take 1 tablet (650 mg total) by mouth every 8 (eight) hours if needed for mild pain for up to 15 days. Do not crush, chew, or split. 45 tablet 10/15/19 25 025 oxyCODONE (OXY-IR) 5 mg immediate release capsule Take 1 capsule (5 mg total) by mouth every 8 (eight) hours if needed for severe pain for up to 3 days. Max Daily Amount: 15 mg 8 capsule 10/15/19 25 025 Active Problems Problem Noted Date Diagnosed Date Androgen deficiency 10/05/2024 Tyshawn level IV melanoma 10/05/2024 Crohn's disease 10/05/2024 Lumbar stenosis with neurogenic claudication 10/2024 Osteoarthritis of multiple joints 10/05/2024 Severe persistent asthma 10/05/2024 HFrEF (heart failure with reduced ejection fract ion) 07/22/2024 Assessment & Plan (10/12/2024 8:57 AM EST): HFrEF-EF 42%. Nonischemic etiology. Last echocardiogram 08/2023. Last ischemic evaluation: Pharmacological nuclear stress test April 2024. GDMT Betablocker: Metoprolol 25 mg orally daily CHANTE Inhibitor-KATHY/ARB/ARNI:: Entresto 24-26 mg orally twice daily Diuretic: Furosemide 20 mg orally daily Aldosterone antagonist: Spironolactone 25 mg orally daily SGLT2 inhibitors: Dapagliflozin 10 mg orally daily ICD: not a candidate due to LVEF In the past, attempts to increase Entresto to further optimize GDMT led to subsequent elevated potassium levels. Will obtain new BMP to reassess and he was instructed to reduce his potassium dietary intake. Will also update echocardiogram to reevaluate his LV function. I've asked the patient to call if they develop worsening symptoms of heart failure such as increased shortness of breath, new or worsening cough, increased swelling in the legs or ankles, or weight gain of more than 2 pounds in one day or 4 pounds in one week. Orders: Basic metabolic panel; Future Transthoracic echocardiogram (TTE) complete with PRN contrast, bubble, strain, and 3D order panel; Future Assessment & Plan (07/22/2024 1:58 PM EST): HFrEF-EF 42% . Nonischemic etiology. Last echocardiogram 08/2023. Last ischemic evaluation: Pharmacological nuclear stress test April 2024. GDMT Betablocker: Metoprolol 25 mg orally daily CHANTE Inhibitor-KATHY/ARB/ARNI: entresto Diuretic: furosemide Aldosterone antagonist: spironolactone SGLT2 inhibitors: dapagliflozin ICD: not a candidate due to LVEF The patient recently underwent cardiac MRI as outlined above in June which showed LVEF 42%. At that time, recommendations to increase Entresto to 49-51 mg orally twice daily. Subsequent BMP showed elevated potassium level at 5.5. Recommended reduce potassium intake and repeated BMP. At that point, recommended to reduce spironolactone to 12.5 mg daily given consistently elevated potassium. Recent potassium level still elevated at 5.5. On today's visit, we discussed his medications as well as dietary intake. He is not consuming large amounts of food or drink with potassium in it. At this point, recommend he reduce his Entresto back down to 24-26 mg orally twice daily and repeat a BMP in 2 weeks. I've asked the patient to call if they develop worsening symptoms of heart failure such as increased shortness of breath, new or worsening cough, increased swelling in the legs or ankles, or weight gain of more than 2 pounds in one day or 4 pounds in one week. Orders: Basic metabolic panel; Future Basic metabolic panel Coronary artery disease invo lving bill moore's slough coronary artery of bill moore's slough heart without angina pectoris 07/22/2024 Assessment & Plan (10/12/2024 8:57 AM EST): Patient has a history of coronary artery disease. Left heart catheterization May 2023 showed normal left main. 60% stenosis in the mid LAD. 80% stenosis in the second diagonal. Mild diffuse disease in the circumflex. 40% stenosis in the mid RCA. 50% stenosis in the first RPL. Pharmacological nuclear stress test April 2024 showed no areas of ischemia or infarction. He continues on medical therapy with beta-sarah, aspirin, ezetimibe as prescribed. He continues to maintain an active lifestyle and denies any exertional or anginal symptoms during these activities. Assessment & Plan (07/22/2024 1:58 PM EST): Patient has a history of coronary artery disease. Left heart catheterization May 2023 showed normal left main. 60% stenosis in the mid LAD. 80% stenosis in the second diagonal. Mild diffuse disease in the circumflex. 40% stenosis in the mid RCA. 50% stenosis in the first RPL. Recent pharmacological nuclear stress test April 2024 showed no areas of ischemia or infarction. He continues on medical therapy with beta-sarah, aspirin, ezetimibe as prescribed. He continues to maintain an active lifestyle and denies any exertional or anginal symptoms during these activities. Mixed hyperlipidemia 07/22/2024 Assessment & Plan (10/12/2024 8:57 AM EST): Patient's last fasting lipid panel updated August 2024 and showed an LDL cholesterol at goal at 34. He will continue lifestyle modifications to reduce his cholesterol levels and continue on ezetimibe as prescribed. Assessment & Plan (07/22/2024 1:58 PM EST): Patient has a history of hyperlipidemia as well as history of coronary artery disease. Will update a new fasting lipid panel to reassess his lipid control. In the past, unable to tolerate statin therapy. Orders: Lipid panel; Future Lipid panel Preop cardiovascular exam 07/22/2024 Assessment & Plan (10/12/2024 8:57 AM EST): Patient's cardiac problems are optimized on current medical therapy. Patient's activity level represents greater than 4 METS. Patient does not require any further testing at this time. Using the ROBLES cardiac risk assessment patient is at a 0.6% risk for perioperative myocardial infarction or cardiac arrest. Patient is at acceptable risk for the proposed surgical procedure. Given his history of heart failure, would recommend maintain close cardiac monitoring of hemodynamics throughout the perioperative period. Assessment & Plan (07/22/2024 1:58 PM EST): Patient's cardiac problems are optimized on current medical therapy. Patient's activity level represents greater than 4 METS. Patient does not require any further testing at this time. Using the ROBLES cardiac risk assessment patient is at a 0.5% risk for perioperative myocardial infarction or cardiac arrest. Patient is at acceptable risk for the proposed surgical procedure. Given his history of heart failure, would recommend maintain close cardiac monitoring of hemodynamics throughout the perioperative period. Malignant melanoma of scalp 07/06/2024 Chronic kidney disease (CKD) stage G3a/A1, moderately decreased glomerular filtration rate (GFR) between 45-59 mL/min/1.73 square meter and albuminuria creatinine ratio less than 30 mg/g 11/30/2021 NATALIYA on CPAP 09/13/2021 Overview (10/05/2024): Last Assessment & Plan: He does have a history of sleep apnea which is untreated. He states that he has a adjustable bed and when he has his bed elevated he feels much better and feels like his sleep pattern is much better. He is also told that he does not snore when his bed is elevated. Acquired hypothyroidism 06/24/2019 BPH with urinary obstruction 06/24/2019 Crohn's disease of colon 06/24/2019 Migraine headache 06/24/2019 Moderate asthma 06/24/2019 Osteoarthritis of acromioclavicular joint 2018 Temporomandibular joint disorder 05/03/2017 Overview (10/05/2024): Other specified disorders of temporomandibular joint; Note: Date Diagnosed: 05/03/2017 3:07 PM (M26.69) Resolved Problems Problem Noted Date Diagnosed Date Resolved Date Dilated idiopathic cardiomyopathy 10/05/2024 10/12/2024 Dilated cardiomyopathy 07/22/202410/12 Status post insertion of elie g-eluting stent into left anterior descending (LAD) artery 05/27/2023 10/12/2024 Superficial thrombosis of lower extremity 05/20/2023 10/12/2024 Overview (10/05/2024): Placed on Xarelto due to extensive clot burden and close proximity to the common femoral vein. Encounters Date Type Department Care Team Description 11/03/2024 3:00 PM EST - 11/03/2024 11:59 PM EST Hospital Encounter [facility] Ultrasound [address] [place] [address] Swelling; Pain; Localized edema Discharge Disposition: Home or Self Care 10/23/2024 2:45 PM EST Office Visit Orthopedic [facility] [place] [address] [facility] [address] [place] [address] Macy Wyatt PA S/P carpal tunnel release (Primary Dx) 10/15/2024 11:31 AM EST Anesthesia Event [facility] Main OR [address] [place] [phone] Avtar Gonzalez DO Mounsey, Sarah, CRNA 10/15/2024 10:45 AM EST - 10/15/2024 12:00 PM EST Surgery [facility] Main OR [address] [place] [phone] Norma Roberts MD ENDOSCOPIC LEFT CARPAL TUNNEL RELEASE [[id number] (CPT??)] 10/15/2024 9:17 AM EST - 10/15/2024 1:11 PM EST Hospital Encounter [facility] Main OR [address] [place] [phone] Norma Roberts MD Discharge Disposition: Home or Self Care 10/13/2024 Telephone [facility] [address] [place] [phone] Berta Arroyo NP Pre-operative Clearance 10/12/2024 8:10 AM EST Consult [facility] [address] [place] [phone] Berta Arroyo NP Coronary artery disease involving bill moore's slough coronary artery of bill moore's slough heart without angina pectoris (Primary Dx); HFrEF (heart failure with reduced ejection fraction) ([facility]); Mixed hyperlipidemia; Preop cardiovascular exam 10/12/2024 Telephone [address] [facility] [address] [facility] [address] [place] [phone] Lor Rao 10/09/2024 Telephone [facility] [address] [place] [phone] Tayla-Mary Tyson MD Med Refill (Metoprolol) 10/05/2024 9:15 AM EST Consult [facility] [address] [facility] [address] [place] [phone] Norma Roberts MD Carpal tunnel syndrome of left wrist (Primary Dx) 10/04/2024 12:08 PM EST - 10/04/2024 1:42 PM EST Emergency [facility] Emergency [address] [place] [phone] Abebe Kirby MD Hematoma (Primary Dx) Discharge Disposition: Left Against Medical Advice 10/02/2024 Lab Requisition [facility] - Main Lab [address] [facility] [employer] [place] [place] [address] Valentín Bean MD Vitamin D deficiency, unspecified 09/25/2024 Telephone [facility] [address] [facility] [address] [place] [address] Norma Roberts MD needs to rs preop 09/25/2024 Telephone Orthopedic Surgery [facility] [address] [place] [address] Lor Rao 09/22/2024 Telephone [facility] Cardiology [address] [place] [address] Mary Emanuel MD 08/14/[address] [place] [address] Mary Emanuel MD Med Refill 08/11/[address] [place] [address] Berta Arroyo NP lab results from Last 3 Months Immunizations Name Administration Dates Next Due Moderna SARS-CoV-2 COVID-19, mRNA, LNP-S, preservative free 12/11/2020,11/13/2020 Surgical History Surgery Date Site/Laterality Comments COLONOSCOPY 07/14/2020 PROCEDURE: HISTORICAL COLONOSCOPY; COMMENT: AND BIOPSY OF COLON OTHER SURGICAL HISTORY 07/14/2020 PROCEDURE: CA ECHO TRANSTHORAC R-T 2D W/WO M-MODE REC COMP; COMMENT: ABNORMAL OTHER SURGICAL HISTORY 04/13/2020 PROCEDURE: HISTORY OTHER; COMMENT: Melanoma excised scalp/sentinel node left neck OTHER SURGICAL HISTORY 07/01/2019 PROCEDURE: HISTORY OTHER; COMMENT: Reconstruction triceps tendon with Achilles tendon allograft left elbow OTHER SURGICAL HISTORY 08/19/2017 PROCEDURE: HISTORY OTHER; COMMENT: Repair of quadriceps tendon OTHER SURGICAL HISTORY 08/19/2017 PROCEDURE: CA RPR 1 TORN LIGM&/CAPSL KNE COLTRL&CRUCIATE OTHER SURGICAL HISTORY 09/29/2015 Left PROCEDURE: ARTHROSCOPY SHOULDER SURGI TOTAL KNEE ARTHROPLASTY 06/07/2015 Right PROCEDURE: CA ARTHRP KNE CONDYLE&PLATU MEDIAL&LAT COMPARTMENTS OTHER SURGICAL HISTORY 07/29/2013 PROCEDURE: HISTORY OTHER; [...] OTHER; COMMENT: Repair torn labum right shoulder KNEE SURGERY Bilateral PROCEDURE: HISTORICAL KNEE SURGERY ANKLE FRACTURE SURGERY Bilateral PROCEDURE: CA OPEN TREATMENT MEDIAL MALLEOLUS FRACTURE OTHER SURGICAL HISTORY 06/19/2021 PROCEDURE: CA ECHO TRANSTHORAC R-T 2D W/WO M-MODE REC COMP OTHER SURGICAL HISTORY 07/01/2019 Left PROCEDURE: HISTORICAL ARM SURGERY; COMMENT: Reconstruction triceps tendon with Achilles tendon allograft left elbow LEG SURGERY 08/19/2017 PROCEDURE: HISTORICAL LEG SURGERY; COMMENT: Repair of quadriceps tendon KNEE ARTHROSCOPY W/ MENISCAL REPAIR 08/14/2013 Right PROCEDURE: CA ARTHROSCOPY KNEE W/MENISCUS RPR MEDIAL/LATERAL; COMMENT: partial medial meniscectomy FINGER SURGERY Left thumb, trapeziectomy w/ interpositional arthroplasty; done by Dr Roberts at [facility] Medical History Medical History Date Comments Anxiety disorder DX:Anxiety diso rder Asthma, severe persistent ([facility]/HCC) DX:Asthma, severe persistent BPH with obstruction/lower u rinary tract symptoms DX:BPH with obstruction/lowe r urinary tract symptoms Chronic kidney disease (CKD) stage G3a/A1, moderately decreased glomerular filtration rate (GFR) between 45-59 mL/min/1.73 square meter and albuminuria creatinine ratio less than 30 mg/g (CMS/HCC) DX:Chronic kidney disease (C KD) stage G3a/A1, moderately decreased glomerular filtration rate (GFR) between 45-59 mL/min/1.73 square meter and albuminuria creatinine ratio less than 30 mg/g (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); COMMENT: happened after he struck his leg Erectile dysfunction DX:Erectile dysfunction Essential tremor DX:Essential tr emor Gynecomastia DX:Gynecomastia Hyperlipidemia DX:Hyperlipidemi a Hypogonadotropic hypogonadism (CMS/HCC) DX:Hypogonadotropic hypogonadism (HCC) Left leg DVT (CMS/HCC) DX:Left l eg DVT (HCC); COMMENT: POST-OP, peroneal and posterior Malignant melanoma of scalp (CMS/HCC) DX:Malignant melanoma of scalp (HCC) Migraine headache DX:Migraine he adache NATALIYA on CPAP DX:NATALIYA on CPAP; COMMENT: Mild severity on home sleep study Partial tear of left Achilles tendon DX:Partial tear of left Achilles tendon Peripheral neuropathy DX:Periphe ral neuropathy; COMMENT: -likely versus myopathy Pernio DX:Pernio; COMME NT: ( development of cold induced erythrocyanotic skin lesions) Rheumatoid arthritis (CMS/HCC) D X:Rheumatoid arthritis (HCC) Right brachial plexitis DX:Right brachial plexitis Seizure disorder (CMS/HCC) DX:Se izure disorder (HCC); COMMENT: quiescent Transaminitis DX:Transaminitis ; COMMENT: CHRONIC Hypothyroidism DX:Hypothyroidis m; COMMENT: ON ARMOUR THYROID Acute hypoxemic respiratory failure (CMS/HCC) DX:Acute hypoxemic respirato ry failure (HCC); COMMENT: D/C'd @ [facility] ON 08/22/21 CAP (community acquired pneumonia) DX:CAP (community acquired pneumonia); COMMENT: D/C'd @ [facility] ON 08/22/21 Crohn's disease (CMS/HCC) 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) Family History Medical History Relation Name Comments Other: Mediterranean Fever Sister Relation Name Status Comments Sister Social History Tobacco Use Types Packs/Day Years [...] not to disclose 2024 12:11 PM EST Obstetrics History Last Filed Vital Signs Vital Sign Reading Time Taken Comments Blood Pressure 125/81 10/15/2024 12:46 PM EST Pulse 85 10/15/2024 12:46 PM EST Temperature 36.4 ??C (97.6 ??F) 10/15/2024 12:[address] Respiratory Rate 16 10/15/2024 9:35 AM EST Oxygen Saturation 97% 10/15/2024 12:46 PM EST Inhaled Oxygen Concentration - - Weight 93.9 kg (207 lb) 10/12/2024 8:21 AM EST Height 185.4 cm (6' 1 ) 10/12/2024 8:21 AM EST Body Mass Index 27.31 10/12/2024 8:21 AM EST Plan of Treatment Upcoming Encounters Date Type Department Care Team (Late st Contact Info) Description 12/22/2024 11:00 AM EDT Ancillary Procedure [facility] Cardiology [facility] [address] [place] [address] 07/06/2025 10:50 AM EST Office Visit [facility] [address] [place] [address] Center [address] [place] [phone] Mary Emanuel MD [address] [place] [address] [address] [place] [address] Health Maintenance Due Date Last Done Comments Pneumococcal Vaccine: 50+ Years (2 of 2 - PCV) 12/26/2019 12/25/2018 Pneumococcal Vaccine: Pediatrics (0 to 5 Years) and At-Risk Patients (6 to 64 Years) (2 of 2 - PCV) 12/26/2019 12/25/2018 Colorectal Cancer Screening: Colonoscopy 08/01/2022 Depression Screening 08/01/2022 HIV Screening 08/01/2022 Hepatitis C Screening 08/01/2022 Social Influencers of Health Screening 08/01/2022 COVID-19 Vaccine ( season) 2024 06/02/2023, 06/18/2022, 07/25/2021, Additional history exists Influenza Vaccine (#1) 2024 Medicare Annual Wellness Visit 05/23/2024 05/23/2023 Hypertension/CHF/CAD Annual BMP Blood Test 09/25/2025 09/25/2024, 08/10/2024, 07/18/2024, Additional history exists Cholesterol Screening (Lipid Panel) 08/10/2029 08/10/2024 DTaP,Tdap,and Td Vaccines (2 - Td or Tdap) 11/25/2029 11/26/2019 Zoster Vaccines Completed 08/11/2020, 06/07/2020 RSV Immunization Patients 60+ Years Old Completed 06/02/2023 HIB Vaccines Aged Out No longer eligi ble based on patient's age to complete this topic HPV Vaccines Aged Out No longer eligi ble based on patient's age to complete this topic Hepatitis A Vaccines Aged Out No long er eligible based on patient's age to complete this topic Hepatitis B Vaccines Aged Out No long er eligible based on patient's age to complete this topic IPV Vaccines Aged Out No longer eligi ble based on patient's age to complete this topic MMR Vaccines Aged Out No longer eligi ble based on patient's age to complete this topic Meningococcal ACWY Vaccine Aged Out N o longer eligible based on patient's age to complete this topic Meningococcal B Vacine Aged Out No lo nger eligible based on patient's age to complete this topic RSV Immunization Patients Under 20 months Aged Out No longer eligible based on patient's age to complete this topic Varicella Vaccines Aged Out No longer eligible based on patient's age to complete this topic Medical Devices Implanted Type Area Block Sorter Device Identifier Shelf Expiration Date Model / Serial / Lot Graft 16cm-19.4cmx 10-20mm Tt Frzn Achils Tndn Specs [facility] - [id number] - [id number] Implanted:Qt y: 1 on 07/01/2019 by Jett Rodriguez MD Left: Elbow [employer]OSKELETAL TRANSPLANT FND 01/31/2024 [id number] / [id number] / [place] Suture Q-Fix Od2.8 Mm - [id number] Implanted:Qt y: 1 on 07/01/2019 by Jett Rodriguez MD Left: Elbow [employer] 02/09/2022 [id number] / / [id number] [place] Sut 5.5mm Fullthrd Med Insite Preld [facility] Fbr Sprt Peek - [id number] Implanted:Qt y: 2 on 02/03/2020 by Chase Ramirez MD Right: Shoulder [employer] 02/17/2022 [id number] / / [id number] Solidback Acetabular Shell 56f Str-How [id number] Implanted:Qt y: 1 on 09/05/2021 by Chris Hairston MD Right: Hip [employer] [id number] 05/03/2024 700-04-56F / / [id number] Hip Insrt Poly X3 10deg 36mm Stry-Howm [id number] Implanted:Qt y: 1 on 09/05/2021 by Chris Hairston MD Right: Hip [employer] [id number] 06/27/2024 623-10-36F / / [id number] Hip Stm Tzf Lopes #5 Rt 31 Stry-Howm [id number] Implanted:Qt y: 1 on 09/05/2021 by Chris Hairston MD Right: Hip [employer] [id number] 12/05/2025 [id number] / / [id number] Hip Head Delta Tiffanie 36mm +7.5 Stry-Howm [id number] Implanted:Qt y: 1 on 09/05/2021 by Chris Hairston MD Right: Hip [employer] [id number] 04/05/2026 [id number] / / [id number] Procedures Procedure Name Priority Date/Time Associated Diagnosis Comments VAS US DUPLEX LOWER EXT VENOUS LEFT Routine 11/03/2024 3:35 PM EST Swelling Pain Localized edema CA ENDOSCOPY WRIST SURGICAL WITH RELEASE TRANSVERSE CARPAL LIGAMENT 10/15/2024 11:29 AM EST Carpal tunnel syndrome, left upper limb ECG 12-LEAD Routine 10/12/2024 8:58 AM EST Coronary artery disease involving bill moore[place] coronary artery of bill moore[place]ough heart without angina pectoris VITAMIN D 25 HYDROXY Routine 10/02/2024 10:49 AM EST Vitamin D deficiency, unspecified BASIC METABOLIC PANEL Routine 09/25/2024 12:21 PM EST Atrial fibrillation, unspecified type (CMS/HCC) LIPID PANEL Routine 08/10/2024 9:36 AM EST Mixed hyperlipidemia from Last 3 Months or Most Recently Relevant to Health Maintenance Results * Vascular US duplex lower extremity [...] Signed Date: 11/03/2024 15:41 ET Workstation ID: [id number] Transcribed By: Self Edit Transcribed Date: 11/03/2024 [...] Signed Date: 11/03/2024 15:41 ET Workstation ID: [id number] Transcribed By: Self Edit Transcribed Date: 11/03/2024 15:41 ET us Chris Hairston MD CV VASCULAR PROCEDURES Final Re sult * ECG 12 lead (10/12/2024 8:58 AM EST) Ventricular Rate ECG 79 BPM GEMUSE Atrial Rate 79 BPM GEMUSE P-R Interval 170 ms GEMUSE QRS Duration 126 ms GEMUSE Q-T Interval 360 ms GEMUSE QTc 412 ms GEMUSE P Wave [place] 67 degrees GEMUSE R [place] -66 degrees GEMUSE T [place] 6 degrees GEMUSE ECG Interpretation Normal sinus rhythm Left axis deviation Non-specific intra-ventricu lar conduction block T wave abnormality, consider lateral ischemia Abnormal ECG When compared with ECG of 22-JUL-2024 13:12, Nonspecific T wave abnormality now evident in Inferior leads and lateral leads Confirmed by MARY EMANUEL ([id number]) on 10/12/2024 9:38:38 AM GEMUSE 10/12/2024 8:30 AM EST 10/12/2024 9:38 AM EST Berta Arroyo [employer] MARKETING MANAGER ECG ORDERABLES Edited Resu lt - Final GEMUSE * Vitamin D 25 hydroxy (10/02/2024 10:49 AM EST) [facility] Vit D, 25-Hydroxy 45.4 30.0 - 80.0 ng/mL LAB CHEMISTRY METHOD 10/02/2024 2:17 PM EST [facility] Blood Venous blood specimen / Unknown 10/02/2024 10:49 AM EST 10/02/2024 1:16 PM EST Valentín Bean MD LAB BLOOD ORDERABLES Fin al Result [facility] [address] [place] [address], [place] [phone] * (ABNORMAL) Basic metabolic panel (09/25/2024 12:21 PM EST) [facility] Glucose 92 70 - 99 mg/dL [facility] Blood Urea Nitrogen (BUN) 29(H) 8 - 27 mg/dL [facility] Creatinine 1.15 0.76 - 1.27 mg/dL [facility] 1 eGFR 72 >59 mL/min/1.7 3 [facility] 1 BUN/Creatinine Ratio 25(H) 10 - 24 [facility] 1 Sodium 142 134 - 144 mmol/L [facility] Potassium 5.5(H) 3.5 - 5.2 mmol/L [facility] 1 Chloride 101 96 - 106 mmol/L [facility] 1 Carbon Dioxide 21 20 - 29 mmol/L [facility] 1 Calcium 9.2 8.6 - 10.2 mg/dL [facility] 1 Blood Venous blood specimen / Unknown 09/25/2024 12:21 PM EST 09/25/2024 Narrative [facility] 1 - 09/26/2024 7:07 AM EST Performed at: ??01 - [facility] ??[id number] Music Teacher: Shalonda Camargo MD, Phone: ??[phone] Berta Arroyo NP LAB BLOOD ORDERABLES Final Result Performing Organization Address City/[facility] Co de Phone Number [facility] 1 * (ABNORMAL) Lipid panel (08/10/2024 9:36 AM EST) Cholesterol Total 88(L) 100 - 199 mg/dL [facility] Triglycerides 125 0 - 149 mg/dL [facility] 1 HDL Cholesterol 32(L) >39 mg/dL [facility] 1 VLDL Cholesterol Calculated 22 5 - 40 mg/dL [facility] 1 LDL Chol Calc (NIH) 34 0 - 99 mg/dL [facility] 1 Blood Venous blood specimen / Unknown 08/10/2024 9:36 AM EST 08/10/2024 Narrative [facility] 1 - 08/11/2024 5:06 AM EST Performed at: ??01 - [facility] [address] ??[id number] Music Teacher: Shalonda Camargo MD, Phone: ??[phone] Berta Arroyo NP LAB BLOOD ORDERABLES Final Result Performing Organization Address City/[facility] Co de Phone Number [facility] 1 from Last 3 Months or Most Recently Relevant to Health Maintenance Insurance MEDICARE MEDICAID - [place] Care Teams Automated Process Operator Relationship Specialty Start Date End Date Piero Echevarria MD [address] [place] [phone] PCP - General Internal Medicine 12/21/20
--- OUTSIDE RECORDS SUMMARY | 2024-11-09 12:25 | XMS_ITS | Encounter Summary ---
Author Organization [facility] Address [address] [place] [address] Care Team Providers Care Operations And Maintenance Specialist Name Role Phone Piero Echevarria MD Primary Care Provider [phone] Encounter Details Date Type Department Care Team (Late Contact Info) Description 10/02/2024 Lab Requisition [facility] - Main Lab [address] [facility] [place] [phone] Valentín Bean MD [address] [facility] [address] [place] [address] Vitamin D deficiency, unspecified Social History Tobacco Use Types Packs/Day Years [...] PM EST documented as of this encounter Plan of Treatment Upcoming Encounters Date Type Department Care Team (Late st Contact Info) Description 12/22/2024 11:00 AM EDT Ancillary Procedure [facility] - [address] [place] [phone] 07/06/2025 10:50 AM EST Office Visit [facility] [address] [place] [address] Hari Emanuel MD [address] [place] [address] Dr [address] [place] [address] documented as of this encounter Procedures Procedure Name Priority Date/Time Associated Diagnosis Comments VITAMIN D 25 HYDROXY Routine 10/02/2024 10:49 AM EST Vitamin D deficiency, unspecified documented in this encounter Results * Vitamin D 25 hydroxy (10/02/2024 10:49 AM EST) Vit D, 25-Hydroxy 45.4 30.0 - 80.0 ng/mL LAB CHEMISTRY METHOD 10/02/2024 2:17 PM EST [facility] Blood Venous blood specimen / Unknown 10/02/2024 10:49 AM EST 10/02/2024 1:16 PM EST us Valentín Bean MD LAB BLOOD ORDERABLES Fin al Result [facility] [address] [place] [address], documented in this encounter Visit Diagnoses Diagnosis Vitamin D deficiency, unspecified documented in this encounter Care Teams Operations And Maintenance Specialist Relationship Specialty Start Date End Date Piero Echevarria MD [address] [place] [id number] PCP - General Internal Medicine 12/21/20 documented as of this encounter
--- OUTSIDE RECORDS SUMMARY | 2024-11-09 12:25 | XMS_ITS | Encounter Summary ---
Author Organization [facility] Address [address] [place] [address] Care Team Providers Care Underwriting Service Representative Name Role Phone Piero Echevarria MD Primary Care Provider [phone] Reason for Referral * Imaging (Routine) - Authorized Specialty Diagnoses / Procedures Referred By Contac t Referred To Contact Cardiology Diagnoses HFrEF (heart failure with reduced ejection fraction) ([facility]) Procedures Transthoracic echocardiogram (TTE) complete with PRN contrast, bubble, strain, and 3D order panel SD TTE W 2D IMAGE COMPLETE W DOPPLER ECHO & COLOR FLOW DOPPLER ECHO SD SARY 2D COMPLETE W/CONTRAST OR W & WO CONTRAST WITH DOPPLER Berta Arroyo NP [address] [place] [address] Dr [address] [place] [address] Phone: tel: fax: [facility] Referral ID Status Reason Start Date Expiration Date V isits Requested Visits Authorized [id number] Authorized 10/12/2024 10/12/2025 1 1 Reason for Visit * Reason Comments Pre-op Exam Encounter Details Date Type Department Care Team (Late st Contact Info) Description 10/12/2024 8:10 AM EST Consult [facility] [address] [place] [address] Berta Arroyo NP [address] [place] [address] [place] [address] Coronary artery disease involving tanana coronary artery of tanana heart without angina pectoris (Primary Dx); HFrEF (heart failure with reduced ejection fraction) (CMS/HCC); Mixed hyperlipidemia; Preop cardiovascular exam Social History Tobacco Use Types Packs/Day Years [...] Sign Reading Time Taken Comments Blood Pressure 130/88 10/12/2024 8:21 AM EST Pulse 81 10/12/2024 8:21 AM EST Temperature - - Respiratory Rate - - Oxygen Saturation 96% 10/12/2024 8:21 AM EST Inhaled Oxygen Concentration - - Weight 93.9 kg (207 lb) 10/12/2024 8:21 AM EST Height 185.4 cm (6' 1 ) 10/12/2024 8:21 AM EST Body Mass Index 27.31 10/12/2024 8:21 AM EST documented in this encounter Progress Notes * Berta Arroyo NP - 10/12/2024 8:10 AM ESTAssociated Problem(s): Coronary artery disease involving tanana coronary artery of tanana heart without angina pectoris Patient has a history of coronary artery [...] exertional or anginal symptoms during these activities. * Berta Arroyo NP - 10/12/2024 8:10 AM ESTAssociated Problem(s): HFrEF (heart failure with reduced ejection fraction) ([facility]) HFrEF-EF 42%. Nonischemic etiology. Last echocardiogram 08/2023. [...] bubble, strain, and 3D order panel; Future * Berta Arroyo NP - 10/12/2024 8:10 AM ESTAssociated Problem(s): Mixed hyperlipidemia Patient's last fasting lipid panel updated August 2024 and showed an LDL cholesterol at goal at 34. He will continue lifestyle modifications to reduce his cholesterol levels and continue on ezetimibe as prescribed. * Berta Arroyo NP - 10/12/2024 8:10 AM ESTAssociated Problem(s): Preop cardiovascular exam Patient's cardiac problems are optimized on current [...] monitoring of hemodynamics throughout the perioperative period. * Berta Arroyo NP - 10/12/2024 8:10 AM EST Images from the original note were not included. [facility] PRIMARY JOURNEYMAN MOLDER: Mary Jay MD PCP: Piero Echevarria MD HPI: Mirza Galvan Jr. is a 64 y.o. old male with a history of coronary artery disease status post stentto the mid LAD and angioplasty to the second diagonal branch, heart failure with reduced ejection fraction, DVT May 2023, bronchial asthma followed by [facility] pulmonology, Crohn's disease followed by [facility] GI, chronic kidney disease, depression, migraines, obstructive sleep apnea, and hyperlipidemia. Patient presents today for preoperative cardiovascular risk assessment. He is being considered for left total knee arthroplasty 10/26/[address] Hairston [facility]. Patient denies any chest pain, dyspnea, dizziness, palpitations, orthopnea, PND, syncope, near syncope, or peripheral edema. He is taking all medications as prescribed any cardiac concerns today. Cardiac testin. Echocardiogram (August 2023): Mildly reduced left ventricular systolic function with a left ventricular ejection fraction of 45%. Global LV hypokinesis. Enlarged RV size with normal function. Mild aortic root dilation of 4.3 cm. Ascending aorta dilation of 4.1 cm. 2. Left heart catheterization (05/27/2023): Normal left main. 60% stenosis in the mid LAD. 80% stenosis in the second diagonal. Mild diffuse disease in the circumflex. 40% stenosis in the mid RCA. 50% stenosis in the first RPL. 3. Chest CT scan (December 2022): Heart is normal in size. No pericardial effusion. Severe coronary artery calcification. No aortic aneurysm. 4. Pharmacological nuclear stress test 04/22/2024 showed no areas of ischemia or infarction after attenuation correction. LVEF 35%. 5. Cardiac MRI 06/10/24 which showed LVEF at 42%. RVEF is normal. Mild MR. Borderline dilated ascending aorta 3.9 cm. Overall, study suggestive of nonischemic cardiomyopathy with no significant evidence of infiltrative cardiomyopathy. ACTIVE MEDICATIONS: Outpatient Medications Marked as Taking for the 10/12/24 encounter (Consult) with Berta Arroyo NP Medication Sig Dispense Refill aspirin 81 mg [...] day. Do not crush, chew, or split. dapagliflozin propanediol (FARXIGA) 10 mg tablet Take 1 tablet (10 mg total) by mouth 1 (one) time each day. ezetimibe (ZETIA) 10 mg tablet TAKE 1 TABLET BY MOUTH EVERY DAY 90 tablet 2 famotidine (PEPCID) 40 mg tablet Take 1 tablet (40 mg total) by mouth 1 (one) time each day. fluticasone HFA (FLOVENT HFA) 220 mcg/actuation inhaler Inhale 1 puff by mouth 2 (two) times a day.Rinse mouth with water after use to reduce aftertaste and incidence of candidiasis. Do not swallow. sncpwdtzccr-ohicmdnznhzr-cnczgglthx (Trelegy Ellipta) 100-62.5-25 mcg inhaler Inhale 1 [...] not crush or chew. 90 tablet 1 montelukast (SINGULAIR) 10 mg tablet Take 1 tablet (10 mg total) by mouth at bedtime. niacin 500 mg tablet Take 1 tablet (500 mg total) by mouth 1 (one) time each day with breakfast. ondansetron ODT (ZOFRAN-ODT) 4 mg disintegrating tablet Dissolve 1 tablet (4 mg total) on top of the tongue every 8 (eight) hours if needed for nausea or vomiting. primidone (MYSOLINE) 50 mg tablet Take 1 tablet (50 mg total) by mouth at bedtime. rOPINIRole (REQUIP) 1 mg tablet Take 1 tablet (1 mg total) by mouth at bedtime. sacubitriL-valsartan (Entresto) 24-26 mg per tablet Take 1 tablet by mouth 2 (two) times a day. 180each 3 spironolactone (ALDACTONE) 25 mg tablet TAKE 1 TABLET BY MOUTH EVERY DAY 90 tablet 1 SUMAtriptan (IMITREX) 100 mg tablet Take 1 [...] (75 mg total) by mouth at bedtime. PAST MEDICAL HISTORY: Patient Active Problem List Diagnosis HFrEF (heart failure with reduced ejection fraction) ([facility]) Coronary artery disease involving tanana coronary artery of tanana heart without angina pectoris Mixed hyperlipidemia Preop cardiovascular exam Acquired hypothyroidism BPH with urinary obstruction Androgen deficiency Chronic kidney disease (CKD) stage G3a/A1, moderately decreased glomerular filtration rate (GFR) between 45-59 mL/min/1.73 square meter and albuminuria creatinine ratio less than 30 mg/g ([facility]) Tyshawn level IV melanoma ([facility]/HCC) Crohn's disease ([facility]/HCC) Crohn's disease of colon ([facility]/HCC) Lumbar stenosis with neurogenic claudication Malignant melanoma of scalp ([facility]/HCC) Migraine headache Moderate asthma NATALIYA on CPAP Osteoarthritis of acromioclavicular joint Osteoarthritis of multiple joints Severe persistent asthma Temporomandibular joint disorder ALLERGIES: Allergies Allergen Reactions Adhesive SOCIAL HISTORY: Social History Tobacco Use Smoking status: Never Smokeless tobacco: Never Substance Use Topics Alcohol use: Never PHYSICAL EXAM: Vitals: 10/12/24 0821 BP: 130/88 BP Location: Left arm Patient Position: Sitting BP Cuff Size: Adult Pulse: 81 SpO2: 96% Weight: 93.9 kg (207 lb) Height: 1.854 m (73 ) Physical Exam Constitutional: General: He is awake. He is not in acute distress. Appearance: He is well-developed. He is not diaphoretic. HENT: Head: Normocephalic. Eyes: Pupils: Pupils are equal, round, and reactive to light. Neck: Vascular: No carotid bruit, hepatojugular reflux or JVD. Cardiovascular: Rate and Rhythm: Normal rate and regular rhythm. Pulses: Normal pulses and intact distal pulses. Heart sounds: Normal heart sounds, S1 normal and S2 normal. No murmur heard. Pulmonary: Effort: Pulmonary effort is normal. No respiratory distress. Breath sounds: Normal breath sounds. No wheezing, rhonchi or rales. Chest: Chest wall: No tenderness. Abdominal: General: Bowel sounds are normal. There is no distension. Palpations: Abdomen is soft. Tenderness: There is no abdominal tenderness. Musculoskeletal: General: No swelling or deformity. Normal range of motion. Right lower leg: No edema. Left lower leg: No edema. Skin: General: Skin is warm and dry. Neurological: Mental Status: He is oriented to person, place, and time. Psychiatric: Attention and Perception: Attention normal. Mood and Affect: Mood normal. Speech: Speech normal. EKG: Encounter Date: 10/12/24 ECG 12 lead Result Value Ventricular Rate ECG 79 Atrial Rate 79 P-R Interval 170 QRS Duration 126 Q-T Interval 360 QTc 412 P Wave [place] 67 R [place] -66 T [place] 6 ECG Interpretation Normal sinus rhythm Left axis deviation Non-specific intra-ventricular conduction block T wave abnormality, consider lateral ischemia Abnormal ECG When compared with ECG of 22-JUL-2024 13:12, Nonspecific T wave abnormality now evident in Inferior leads *Note: Due to a large number of results and/or encounters for the requested time period, some results have not been displayed. A complete set of results can be found in Results Review. ASSESSMENT/PLAN: Assessment & Plan Coronary artery disease involving tanana coronary artery of tanana heart without angina pectoris Patient has a history of coronary artery [...] exertional or anginal symptoms during these activities. HFrEF (heart failure with reduced ejection fraction) ([facility]) HFrEF-EF 42%. Nonischemic etiology. Last echocardiogram 08/2023. [...] bubble, strain, and 3D order panel; Future Mixed hyperlipidemia Patient's last fasting lipid panel updated August 2024 and showed an LDL cholesterol at goal at 34. He will continue lifestyle modifications to reduce his cholesterol levels and continue on ezetimibe as prescribed. Preop cardiovascular exam Patient's cardiac problems are optimized on current [...] monitoring of hemodynamics throughout the perioperative period. Thank you for allowing us to participate in the care of this patient. The patient will follow up in8 months, sooner PRN. As per AHA guidelines and previously established plan of care by Dr. Mary Jay MD, we discussed the following today: 1. Coronary artery disease involving tanana coronary artery of tanana heart without angina pectoris 2. HFrEF (heart failure with reduced ejection fraction) (CMS/HCC) 3. Mixed hyperlipidemia 4. Preop cardiovascular exam [facility] Cosigned by Mary Jay MD at 10/12/2024 11:54 AM EST documented in this encounter Plan of Treatment Upcoming Encounters Date Type Department Care Team (Late st Contact Info) Description 12/22/2024 11:00 AM EDT Ancillary Procedure [facility] - [address] [place] [address] 07/06/2025 10:50 AM EST Office Visit [facility] [address] [place] [address] Mary Jay MD [address] [place] [address] Dr [address] [place] [address] Scheduled Orders Name Type Priority Associated Diagnoses Order Schedule Basic metabolic panel Lab Routine HFrEF (heart failure with reduced ejection fraction) ([facility]) 1 Occurrences starting 10/12/2024 until 10/12/2025 Transthoracic echocardiogram (TTE) complete with PRN contrast, bubble, strain, and 3D order panel Echocardiography Routine HFrEF (heart failure with reduced ejection fraction) ([facility]/HCC) 1 Occurrences starting 10/12/2024 until 10/12/2025 documented as of this encounter Procedures Procedure Name Priority Date/Time Associated Diagnosis Comments ECG 12-LEAD Routine 10/12/2024 8:58 AM EST Coronary artery disease involving tanana coronary artery of tanana heart without angina pectoris documented in this encounter Results * ECG 12 lead (10/12/2024 8:58 AM EST) Ventricular Rate ECG 79 BPM GEMUSE Atrial Rate 79 BPM GEMUSE P-R Interval 170 ms GEMUSE QRS Duration 126 ms GEMUSE Q-T Interval 360 ms GEMUSE QTc 412 ms GEMUSE P Wave [place] 67 degrees GEMUSE R [place] -66 degrees GEMUSE T [place] 6 degrees GEMUSE ECG Interpretation Normal sinus rhythm Left axis deviation Non-specific intra-ventricu lar conduction block T wave abnormality, consider lateral ischemia Abnormal ECG When compared with ECG of 22-JUL-2024 13:12, Nonspecific T wave abnormality now evident in Inferior leads and lateral leads Confirmed by MARY JAY ([id number]) on 10/12/2024 9:38:38 AM GEMUSE 10/12/2024 8:30 AM EST 10/12/2024 9:38 AM EST Berta Arroyo NP ECG ORDERABLES Edited Resu lt - Final GEMUSE documented in this encounter Visit Diagnoses Diagnosis Coronary artery disease involving tanana coronary artery of tanana heart without angina pectoris- Primary HFrEF (heart failure with reduced ejection fraction) ([facility]) Mixed hyperlipidemia Preop cardiovascular exam Pre-operative cardiovascular examination documented in this encounter Discontinued Medications Medication Sig Discontinue Reason Start Date End Da te famotidine (PEPCID) 20 mg tablet Take 1 tablet (20 mg total) by mouth 1 (one) time each day. Discontinued by another clinician 10/12/2024 documented as of this encounter Historical Medications * This list may reflect changes made after this encounter. famotidine (PEPCID) 40 mg tablet Take 1 tablet (40 mg total) by mouth 1 (one) time each day. added in this encounter Care Teams Underwriting Service Representative Relationship Specialty Start Date End Date Piero Echevarria MD [address] [place] [address] PCP - General Internal Medicine 12/21/20 documented as of this encounter
--- OUTSIDE RECORDS SUMMARY | 2024-11-09 12:25 | XMS_ITS | Clinical Summary ---
Author Organization [facility] Address [address] [place] [address] Care Team Providers Care Lang Path Therapist Name Role Phone Unavailable Primary Care Provider Unavailabl e Social History Tobacco Use Types Packs/Day Years Used Date Smoking Tobacco: Never Assessed Sex and Gender Information Value Date Recorded Sex Assigned at Not on file Gender Identity Not on file Sexual Orientation Not on file Plan of Treatment Health Maintenance Due Date Last Done Comments Hepatitis C Virus Screening 1961 HIV Screening 1974 DTaP/Tdap/Td Vaccines (1 - Tdap) 1980 Pneumococcal Vaccines 50+ (1 of 1 - PCV) 2011 Zoster (Shingles) Vaccine (1 of 2) 2011 COVID-19 Vaccine ( - 2023-2 5 season) 2024 RSV Vaccine 60 years and old er and Patients (1 - 1-dose 75+ series) 2036 Hepatitis B Vaccines Aged Out No long er eligible based on patient's age to complete this topic Pneumococcal Vaccine: Pediat lucinda (0-5 Years) and At-Risk Patients (6 to 49 Years) Aged Out No longer eligible b ased on patient's age to complete this topic
== END 2024-11-09 10:58 | disposition home or self-care (01) ==
LOC: HO.BBR 10:57
PROVIDERS: PCP Internal Medicine; Visit Provider Urology
DX: D75.1 Secondary polycythemia (principal)
CPT/HCPCS: 85018

== ENCOUNTER 2025-02-10 11:55 | Outpatient (REF) | payer MEDICARE, MEDICAID, SELFPAY ==
--- OUTSIDE RECORDS SUMMARY | 2025-02-10 13:35 | XMS_ITS | Encounter Summary ---
Author Organization [facility] Address [address] [id number] Care Team Providers Care Airport Guide Name Role Phone Pcp, Essence CRONIN Primary Care Provider Piero Christian Primary Care Provider [phone] Reason for Referral * Physical Therapy (Routine) - Closed Specialty Diagnoses / Procedures Referred By Fernanda holden Referred To Contact Physical Therapy Diagnoses Posterior tibialis tendon insufficiency Achilles tendinitis of left lower extremity Karishma Montero MD [address] [place] [address] Phone: tel: fax: Referral ID Status Reason Start Date Expiration Date Visits Re quested Visits Authorized [id number] Closed 06/15/2020 12/12/2020 1 1 Encounter Details Date Type Department Care Team (Late st Contact Info) Description 06/15/2020 Orders Only [facility] Department of Orthopedic Surgery [address] [place], [place] [id number] Karishma Montero MD [address] [place] [phone] Posterior tibialis tendon insufficiency (Primary Dx); [...] extremity documented in this encounter Care Teams Airport Guide Relationship Specialty Start Date End Date Pcp, MD Essence [address] [place] [address] PCP - General Internal Medicine 01/16/18 06/28/22 Piero Echevarria [address] [place] [id number] PCP - General Primary Care 06/29/22 documented as of this encounter
== END 2025-02-10 11:56 | disposition home or self-care (01) ==
LOC: HO.BBR 11:55
PROVIDERS: Visit Provider Urology
DX: D75.1 Secondary polycythemia (principal)
CPT/HCPCS: 85018; 99195

== ENCOUNTER 2025-05-12 11:19 | Outpatient (REF) | payer MEDICARE, MEDICAID, SELFPAY ==
--- OUTSIDE RECORDS SUMMARY | 2025-05-07 13:56 | XMS_ITS | Encounter Summary ---
Author Organization [facility] Address [address] [place] [address] Phone Care Team Providers Care Labor Union Business Representative Name Role Phone Piero Echevarria MD Primary Care Provider + Abebe Owen MD, MPH Unavailable [phone] Treasure Carballo RN Unavailable [phone] Encounter Details Date Type Department Care Team (Latest Contact Info) Description 05/07/2025 1:56 PM EDT - 05/07/2025 11:59 [place] [address] Pedro Maciel Jp, MD [address] [facility] [id number] [place] [address] [email or web address] Discharge Disposition: Home or Self Care Social History Tobacco Use Types Packs/Day Years Used Date Smoking Tobacco: Never Education Answer Date Recorded Are you interested in more education? Not on kiara e 07/09/2024 Are you concerned about learning? Not on file 07/09/2024 No 07/09/2024 No 07/09/2024 Digital Access Answer Date Recorded No 07/09/2024 No 07/09/2024 Reliable internet access at home? Not on file 07/09/2024 Device with a working camera? Not on file Sex and Gender Information Value Date Recorded Sex Assigned at Not on file Legal Sex Male 6:50 PM EST Gender Identity Not on file Sexual Orientation Not on file documented as of this encounter Medications at Time of Discharge ARMLANA THYROID 15 mg Tab Take 5 tablets by mouth daily. 06/30/2024 GEMTESA 75 mg tablet Take 1 tablet by mouth daily. 04/01/2023 methylPREDNISolon e (MEDROL DOSEPACK) 4 mg tablet TAKE 6 TABLETS ON DAY 1 DIRECTED ON PACKAGE AND DECREASE BY 1 TAB EACH DAY FOR A TOTAL OF 6 DAYS montelukast (SINGULAIR) 10 mg tablet Take 10 mg by mouth nightly at bedtime. niacin 500 MG tablet Take 1 tablet by mouth 2 (two) times a day. SUMAtriptan (IMITREX) 6 mg/0.5 mL Soln See Instructions, INJECT 0.5MLS UNDER THE SKIN ONCE NEEDED FOR MIGRAINE HEADACHES. MAY REPEAT ONCE IN 1HR IF NEEDED, # 2.5 mL, 3 Refills, Soft Stop, 04/01/23 13:42:00 EDT, [facility]/pharmacy #[id number], 186, cm, 04/01/23 13:10:00 EDT, Height, 98.4, kg, 03/22/... 04/01/2023 tadalafiL (CIALIS) 10 MG tablet Take 1 tablet by mouth daily. testosterone enanthate (DELATESTRYL) 200 mg/mL injection Inject into the muscle. traMADoL (ULTRAM) 50 mg tablet TAKE 1-2 TABLETS BY MOUTH EVERY FOUR TO SIX HOURS NEEDED FOR PAIN vedolizumab (ENTYVIO) 300 mg SolR injection Inject 300 mg into the vein. venlafaxine (EFFEXOR-XR) 150 MG 24 hr capsule Take 1 capsule every day by oral route. documented as of this encounter Plan of Treatment Not on file documented as of this encounter Procedures Procedure Name Priority Date/Time Associated Diagnosis Comments XR SHOULDER 2 VIEWS (RIGHT) Routine 05/07/2025 2:02 PM EDT Pain documented in this encounter Results * XR SHOULDER 2 VIEWS (RIGHT) (05/07/2025 2:02 PM EDT) Anatomical Region Laterality Modality Shoulder Right Radiographic Noemi ging 05/07/2025 4:31 PM EDT Impressions 05/07/2025 4:34 PM EDT Postoperative and degenerative changes of the right shoulder with findings suggesting a chronic full-thickness rotator cuff tear. Narrative 05/07/2025 4:34 PM EDT XR SHOULDER 2 OR MORE VIEWS (RIGHT) Referring clinician's provided indication for this examination in Epic: Pain COMPARISON: None. FINDINGS: The humeral head is elevated and abuts the acromion suggesting a chronic full-thickness rotator cuff tear. There are glenohumeral and acromioclavicular joint degenerative changes. Multiple suture anchors are present at the surgical neck of the humerus. No fracture or dislocation. Procedure Note Francisco Kilgore MD - 05/07/2025 XR SHOULDER 2 OR MORE VIEWS (RIGHT) Referring clinician's provided indication for this examination in Epic:Pain COMPARISON: None. FINDINGS: The humeral head is elevated and abuts the acromion suggesting a chronicfull-thickness rotator cuff tear. There are glenohumeral andacromioclavicular joint degenerative changes. Multiple suture anchors arepresent at the surgical neck of the humerus. No fracture or dislocation. IMPRESSION: Postoperative and degenerative changes of the right shoulder with findingssuggesting a chronic full-thickness rotator cuff tear. Pedro Maciel MD IMG XR UPPER EXTREMITY Final Re sult documented in this encounter Visit Diagnoses Diagnosis Pain Generalized pain documented in this encounter Care Teams Labor [employer] Business Representative Relationship Specialty Start Date End Date Piero Echevarria MD [address] [place] [id number] PCP - General Internal Medicine 07/07/24 Abebe Owen MD, MPH [address] [place] [phone] [email or web address] Medical Oncology 09/03/24 Treasure Carballo RN [address] [place] [id number] [email or web address] Nurse Navigator 09/03/24 documented as of this encounter Additional Source Comments The information contained in this document represents components of the legal health record. It is not the complete legal health record.[facility]
--- OUTSIDE RECORDS SUMMARY | 2025-05-07 14:30 | XMS_ITS | Encounter Summary ---
Author Organization [facility] Address [address] [place] [address] Phone Care Team Providers Care Program Control Analyst Name Role Phone Piero Echevarria MD Primary Care Provider + Abebe Owen MD, MPH Unavailable [phone] Treasure Carballo RN Unavailable [phone] Encounter Details Date Type Department Care Team (Late st Contact Info) Description 05/07/2025 2:30 PM EDT Office Visit [facility] Department of Orthopaedic Surgery, Shoulder Service [address] [place] [address] Pedro Maciel Jp, MD [address] [facility] [address] [email or web address] Traumatic tear of right rotator cuff, unspecified tear extent, initial encounter (Primary Dx) Social History Tobacco Use Types [...] on file documented as of this encounter Last Filed Vital Signs Vital Sign Reading Time Taken Comments Blood Pressure - - Pulse - - Temperature - - Respiratory Rate - - Oxygen Saturation - - Inhaled Oxygen Concentration - - Weight 93 kg (205 lb) 05/07/2025 2:59 PM EDT Height 182.9 cm (6') 05/07/2025 2:59 PM EDT Body Mass Index 27.8 05/07/2025 2:59 PM EDT documented in this encounter Progress Notes * Pedro Maciel Jp, MD - 05/07/2025 2:30 PM EDT CONF - [id number] The patient's agenda has been elicited and addressed. Pedro Maciel M.D. Chief, [facility] Shoulder Service /[email or web address] * Pedro Maciel Jp, MD - 05/07/2025 1:56 PM EDT DATE OF SERVICE: 05/07/2025 Mr. Galvan is a 64-year-old gentleman who had been my patient many years ago. More than 10 years ago, I did a pectoralis major repair for a ruptured pectoralis major on the right side and that side he says it feels great. He comes today because he has had a new problem affecting his right shoulder.He ruptured his biceps some time ago and some physician in [place] whose name he could not remember, did a surgery on him and tried to repair his biceps tendon, which failed. Apparently, according to the patient, this surgeon looked at his rotator cuff and said nothing could be done. He presents now with a shoulder that is weak with loss of motion, though he has no pain at all. He has no problems sleeping. Subjective shoulder value is 25% compared to the other side, which is 100%. 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 He is very active and he is 64 years of age and has expectations to be able to do many forceful things with his arm and he is able to do some of these, but not to his satisfaction. 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 He has ahistory of asthma, coronary artery disease, Crohn's colitis, and deep venous thrombosis and other items listed in his record in [facility]. His medications are listed as well. On physical exam, he is 6 feet, 205 pounds. 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 The pectoralis major contour looks good. He can raise his arm only about 120 degrees withobvious weakness. Resisted abduction and external rotation are weak, though no lag sign. Belly-press sign is negative. His radiographs demonstrate multiple metal anchors in the metaphyseal-diaphyseal junction of the humerus. The humeral head is statically superior displaced at least 1.5 cm. He has an irreparable massive rotator cuff tear. This basically is only manageable with a reverse replacement. I told him I have concerns as to doing a reverse replacement given his expectations and the fact that he has no pain at all. We reviewed our website and he will think about this. Unless hehas pain or has significant deterioration in his function, I would not recommend doing a reverse replacement. I answered all of his questions today. His was present as well. documented in this encounter Plan of Treatment Not on file documented as of this encounter Visit Diagnoses Diagnosis Traumatic tear of right rotator cuff, unspecified tear extent, initial encounter- Primary documented in this encounter Care Teams Program Control Analyst Relationship Specialty Start Date End Date Piero Echevarria MD [address] [place] [phone] PCP - General Internal Medicine 07/07/24 Abebe Owen MD, MPH [address] [place] [id number] [email or web address] Oncology 09/03/24 Treasure Carballo RN [address] [place] [phone] [email or web address] Nurse Navigator 09/03/24 documented as of this encounter Additional Source Comments The information contained in this document represents components of the legal health record. It is not the complete legal health record.[facility]
--- OUTSIDE RECORDS SUMMARY | 2025-05-12 14:27 | XMS_ITS | Clinical Summary ---
Author Organization [facility] Address [address] [place] [address] Care Team Providers Care Writing Manager Name Role Phone Unavailable Primary Care Provider Unavailabl e Social History Tobacco Use Types Packs/Day Years Used Date Smoking Tobacco: Never Assessed Sex and Gender Information Value Date Recorded Sex Assigned at Not on file Legal Sex Male 7:41 PM EST Gender Identity Not on file Sexual Orientation Not on file Plan of Treatment Health Maintenance Due Date Last Done Comments Hepatitis C Virus Screening 1961 HIV Screening 1974 DTaP/Tdap/Td Vaccines (1 - Tdap) 1980 Pneumococcal Vaccines 50+ (1 of 1 - PCV) 2011 Zoster (Shingles) Vaccine (1 of 2) 2011 COVID-19 Vaccine ( - 2023-2 5 season) 2025 RSV Vaccine 60 years and old er and Patients (1 - 1-dose 75+ series) 2036 Hepatitis B Vaccines Aged Out No long er eligible based on patient's age to complete this topic
--- OUTSIDE RECORDS SUMMARY | 2025-05-12 14:27 | XMS_ITS | Encounter Summary ---
Author Organization [facility] Address [address] [place] [address] Care Team Providers Care Reinsurance Analyst Name Role Phone Piero Echevarria Primary Care Provider [phone] Encounter Details Date Type Department Care Team (Late st Contact Info) Description 10/28/2023 Orders Only [facility] Department of Orthopedic Surgery [address] [place] [address] Karishma Montero MD [address] [facility] [phone] Social History Tobacco Use Types Packs/Day Years [...] on filedocumented in this encounter Care Teams Reinsurance Analyst Relationship Specialty Start Date End Date Piero Echevarria [address] [place] [address] PCP - General Primary Care 06/29/22 documented as of this encounter
--- OUTSIDE RECORDS SUMMARY | 2025-05-12 14:27 | XMS_ITS | Patient Health Record ---
Author Organization [facility] Address [address] [place] [address] [address] [place] [address] Care Team Providers Care Clerk Typist Name Role Phone Fernando Braden Unavailable [phone] Reason For Referral No Information Medications Medication SIG (Take, Route, Frequency, Duration) Notes Start Date End Date Status Insulin Syringe 29G X 1/2 0.5 ML as directed *please review for potential update for e-prescription and drug interaction check* 02/12/2017 Active Syringe (Disposable) 1 ML as directed *please review for potential update for e-prescription and drug interaction check* 02/12/2017 Active Testosterone Cypionate 200 MG/ML 0.2ML Intramuscular 2/week; Duration: 150 days 02/12/2017 Active Needle (Disp) 22G X 1 as directed *please review for potential update for e-prescription and drug interaction check* 02/12/2017 Active Problems Problem Type SNOMED Code ICD Code Onset Dates Problem Status W/U Status Risk Notes Problem Dyslipidemia (363433076) Dyslipidemia (272.4) Active confirmed Problem 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 Problem Androgen deficiency (07610281) Testosterone deficiency (E29.1) Active confirmed Problem Male hypogonadism (98439225) Male hypogonadism (E29.1) Active confirmed Problem Dyslipidemia (044219555) Dyslipidemia (E78.5) Active confirmed Problem Crohn's disease of large bowel (1170702) Crohns colitis, without complications (K50.10) Active confirmed Problem Disorder of adrenal gland (47964991) 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) Active confirmed Plan Of Treatment Pending Test Test Name Order Date HEMATOCRIT 05/29/2016 HEMOGLOBIN 05/29/2016 TESTOSTERONE, FREE,BIO AND TOTAL, LC/MS/ MS 05/29/2016 ESTRONE, LC/MS/MS 05/29/2016 DHEA SULFATE 05/29/2016 ESTRADIOL, ULTRASENSITIVE LC/MS/MS 05/29 DIHYDROTESTOSTERONE, LC/MS/MS 05/29/2016 TESTOSTERONE, FREE,BIO AND TOTAL, LC/MS/ MS 10/19/2016 ESTRONE, LC/MS/MS 10/19/2016 ESTRADIOL, FREE, LC/MS/MS 10/19/2016 DHEA SULFATE 10/19/2016 HEMATOCRIT 10/19/2016 HEMOGLOBIN 10/19/2016 DIHYDROTESTOSTERONE, LC/MS/MS 10/19/2016 Future Test Test Name Order Date VITAMIN D, 25-HYDROXY, LC/MS/MS (64206) 01/06/2016 HOMOCYSTEINE, CARDIOVASCULAR 01/06/2016 PREGNENOLONE, LC/MS/MS 01/06/2016 Cardio IQ Apolipoprotein A-1 (59585) 02/2016 Cardio IQ hs-CRP (42638) 01/06/2016 Cardio IQ Lipid Panel (Sindy sterol, Total HDL Cholesterol, Triglycerides) (47105) 01/06/2016 Cardio IQ Lipoprotein (a) (14838) 2015 Cardio IQ Lp-PLA2 (PLAC) (inactive 01499 016) 01/06/2016 Cardio IQ Lipoprotein Fractionation, Ion Mobility-- 01/06/2016 Medical (General) History Medical History History ICD Code Arthritis Unknown myopathy
--- OUTSIDE RECORDS SUMMARY | 2025-05-12 14:27 | XMS_ITS ---
Author Name [facility] Organization Unknown Results Test Name/Text Value Interpretation Date Range Source Vancomycin Trough SerPl-mCnc 16.1 mcg/mL 04/28/2025 10 - 20 [facility] Magnesium SerPl-mCnc 2.1 mg/dL 04/28/2025 1.7 - 2.8 [facility] AST SerPl-cCnc 18.0 unit/L 04/28/2025 5 - 40 [facility] BUN SerPl-mCnc 36.0 mg/dL Above high normal 04/28/2025 9 - 2 0 [facility] CO2 SerPl-sCnc 31.0 mmol/L 04/28/2025 24 - 32 CT [facility] Bilirub SerPl-mCnc 0.4 mg/dL 04/28/2025 0.3 - 1 [facility] Glucose SerPl-mCnc 115.0 mg/dL 04/28/2025 70 - 199 [facility] Chloride SerPl-sCnc 98.0 mmol/L 04/28/2025 98 - 10 7 [facility] Creat SerPl-mCnc 1.1 mg/dL 04/28/2025 0.7 - 1.3 CT [facility] Potassium SerPl-sCnc 4.5 mmol/L 04/28/2025 3.5 - 5.1 [facility] eGFRcr SerPlBld CKD-EPI 2020 75.0 mL/min/1.73m2 04/28/2025 - [facility] Anion Gap SerPl Calc-sCnc 10.0 04/28/2025 5 - 14 [facility] Prot SerPl-mCnc 6.1 g/dL Below low normal 04/28/2025 6.4 - 8.5 [facility] ALT SerPl-cCnc 32.0 unit/L 04/28/2025 7 - 52 CT [facility] Calcium SerPl-mCnc 8.4 mg/dL 04/28/2025 8.4 - 10.2 [facility] BUN/Creat SerPl 32.7 Above high normal 04/28/2025 12 - 20 [facility] ALP SerPl-cCnc 43.0 unit/L 04/28/2025 34 - 104 CT [facility] Albumin SerPl-mCnc 3.4 g/dL Below low normal 04/28/2025 3.5 - 5 [facility] Sodium SerPl-sCnc 139.0 mmol/L 04/28/2025 135 - 14 5 [facility] Hct VFr Bld Auto 39.7 % Below low normal 04/28/2025 40 - 54 [facility] PMV Bld Auto 7.4 FL 04/28/2025 7.4 - 11.4 [facility] Platelet # Bld Auto 362.0 K/mcL 04/28/2025 150 - 4 50 [facility] WBC # Bld Auto 9.1 K/mcL 04/28/2025 4 - 10.5 [facility] RBC Auto 84.2 FL 04/28/2025 78 - 100 [facility] RBC # Bld Auto 4.71 M/mcL 04/28/2025 4.7 - 6 [facility]_ [facility] MCHC RBC Auto-EntMCnc 32.0 g/dL 04/28/2025 32 - 36 [facility] RDW RBC Auto 15.3 % 04/28/2025 12.1 - 17.7 [facility] MCH RBC Qn Auto 26.9 pcg 04/28/2025 25 - 33 [facility] Hgb Bld-mCnc 12.7 g/dL Below low normal 04/28/2025 13.5 - 18 [facility] Bilirub SerPl-mCnc 0.4 mg/dL 04/27/2025 0.3 - 1 [facility] Sodium SerPl-sCnc 136.0 mmol/L 04/27/2025 135 - 14 5 [facility] Albumin SerPl-mCnc 3.6 g/dL 04/27/2025 3.5 - 5 [facility] Calcium SerPl-mCnc 8.9 mg/dL 04/27/2025 8.4 - 10.2 [facility] Creat SerPl-mCnc 1.2 mg/dL 04/27/2025 0.7 - 1.3 CT [facility] Prot SerPl-mCnc 6.5 g/dL 04/27/2025 6.4 - 8.5 [facility]_ [facility] Glucose SerPl-mCnc 129.0 mg/dL 04/27/2025 70 - 199 [facility] Potassium SerPl-sCnc 4.0 mmol/L 04/27/2025 3.5 - 5.1 [facility] AST SerPl-cCnc 22.0 unit/L 04/27/2025 5 - 40 CT [facility] BUN/Creat SerPl 31.7 Above high normal 04/27/2025 12 - 20 [facility] ALP SerPl-cCnc 44.0 unit/L 04/27/2025 34 - 104 CT [facility] Chloride SerPl-sCnc 98.0 mmol/L 04/27/2025 98 - 10 7 [facility] ALT SerPl-cCnc 34.0 unit/L 04/27/2025 7 - 52 CT [facility] CO2 SerPl-sCnc 27.0 mmol/L 04/27/2025 24 - 32 CT [facility] Anion Gap SerPl Calc-sCnc 11.0 04/27/2025 5 - 14 [facility] eGFRcr SerPlBld CKD-EPI 2020 68.0 mL/min/1.73m2 04/27/2025 - [facility] BUN SerPl-mCnc 38.0 mg/dL Above high normal 04/27/2025 9 - 2 0 [facility] Magnesium SerPl-mCnc 1.9 mg/dL 04/27/2025 1.7 - 2.8 [facility] Vancomycin Trough SerPl-mCnc 10.0 mcg/mL 04/27/2025 10 - 20 [facility] MCHC RBC Auto-EntMCnc 33.4 g/dL 04/27/2025 32 - 36 [facility] RBC Auto 82.3 FL 04/27/2025 78 - 100 [facility] MCH RBC Qn Auto 27.5 pcg 04/27/2025 25 - 33 [facility]_ [facility] PMV Bld Auto 7.6 FL 04/27/2025 7.4 - 11.4 [facility] Hct VFr Bld Auto 39.0 % Below low normal 04/27/2025 40 - 54 [facility] WBC # Bld Auto 10.0 K/mcL 04/27/2025 4 - 10.5 [facility]_ [facility] RDW RBC Auto 15.1 % 04/27/2025 12.1 - 17.7 [facility] RBC # Bld Auto 4.74 M/mcL 04/27/2025 4.7 - 6 [facility] Hgb Bld-mCnc 13.0 g/dL Below low normal 04/27/2025 13.5 - 18 [facility] Platelet # Bld Auto 320.0 K/mcL 04/27/2025 150 - 4 50 [facility] Cryptoc Ag Ser Ql Nonreactive 04/28/2025 - [facility] LDH SerPl L to P-cCnc 323.0 unit/L Above high normal 04/26/2025 125 - 220 [facility] Magnesium SerPl-mCnc 1.9 mg/dL 04/26/2025 1.7 - 2.8 [facility] ALP SerPl-cCnc 46.0 unit/L 04/26/2025 34 - 104 CT [facility] Albumin SerPl-mCnc 3.7 g/dL 04/26/2025 3.5 - 5 [facility] Bilirub SerPl-mCnc 0.5 mg/dL 04/26/2025 0.3 - 1 [facility] BUN SerPl-mCnc 33.0 mg/dL Above high normal 04/26/2025 9 - 2 0 [facility] Calcium SerPl-mCnc 8.9 mg/dL 04/26/2025 8.4 - 10.2 [facility] eGFRcr SerPlBld CKD-EPI 2020 68.0 mL/min/1.73m2 04/26/2025 - [facility] Prot SerPl-mCnc 6.7 g/dL 04/26/2025 6.4 - 8.5 [facility] CO2 SerPl-sCnc 28.0 mmol/L 04/26/2025 24 - 32 CT [facility] ALT SerPl-cCnc 33.0 unit/L 04/26/2025 7 - 52 CT [facility] Potassium SerPl-sCnc 4.2 mmol/L 04/26/2025 3.5 - 5.1 [facility] Sodium SerPl-sCnc 138.0 mmol/L 04/26/2025 135 - 14 5 [facility] BUN/Creat SerPl 27.5 Above high normal 04/26/2025 12 - 20 [facility] Chloride SerPl-sCnc 98.0 mmol/L 04/26/2025 98 - 10 7 [facility] Anion Gap SerPl Calc-sCnc 12.0 04/26/2025 5 - 14 [facility] Glucose SerPl-mCnc 125.0 mg/dL 04/26/2025 70 - 199 [facility] Creat SerPl-mCnc 1.2 mg/dL 04/26/2025 0.7 - 1.3 CT [facility] AST SerPl-cCnc 24.0 unit/L 04/26/2025 5 - 40 CT [facility] Phosphate SerPl-mCnc 3.2 mg/dL 04/26/2025 2.5 - 4.5 [facility] MCHC RBC Auto-EntMCnc 32.1 g/dL 04/26/2025 32 - 36 [facility] MCH RBC Qn Auto 27.1 pcg 04/26/2025 25 - 33 [facility] PMV Bld Auto 7.9 FL 04/26/2025 7.4 - 11.4 [facility] RBC # Bld Auto 4.64 M/mcL Below low normal 04/26/2025 4.7 - 6 [facility] Hgb Bld-mCnc 12.6 g/dL Below low normal 04/26/2025 13.5 - 18 [facility] Hct VFr Bld Auto 39.1 % Below low normal 04/26/2025 40 - 54 [facility] RDW RBC Auto 15.6 % 04/26/2025 12.1 - 17.7 [facility] Platelet # Bld Auto 346.0 K/mcL 04/26/2025 150 - 4 50 [facility] RBC Auto 84.3 FL 04/26/2025 78 - 100 [facility] WBC # Bld Auto 11.4 K/mcL Above high normal 04/26/2025 4 - 1 0.5 [facility] Vancomycin Trough SerPl-mCnc 8.8 mcg/mL Below low normal 04/26/2025 10 - 20 [facility] Troponin I SerPl HS-mCnc 8.0 ng/L 04/26/2025 0 - 20 [facility] BUN/Creat SerPl 28.3 Above high normal 04/26/2025 12 - 20 [facility] Calcium SerPl-mCnc 8.4 mg/dL 04/26/2025 8.4 - 10.2 [facility] BUN SerPl-mCnc 34.0 mg/dL Above high normal 04/26/2025 9 - 2 0 [facility] Glucose SerPl-mCnc 156.0 mg/dL 04/26/2025 70 - 199 [facility] Albumin SerPl-mCnc 3.2 g/dL Below low normal 04/26/2025 3.5 - 5 [facility] AST SerPl-cCnc 20.0 unit/L 04/26/2025 5 - 40 CT [facility] Potassium SerPl-sCnc 4.4 mmol/L 04/26/2025 3.5 - 5.1 [facility] CO2 SerPl-sCnc 25.0 mmol/L 04/26/2025 24 - 32 CT [facility] Prot SerPl-mCnc 5.8 g/dL Below low normal 04/26/2025 6.4 - 8.5 [facility] Creat SerPl-mCnc 1.2 mg/dL 04/26/2025 0.7 - 1.3 CT [facility] Anion Gap SerPl Calc-sCnc 9.0 04/26/2025 5 - 14 [facility] Bilirub SerPl-mCnc 0.3 mg/dL 04/26/2025 0.3 - 1 [facility] eGFRcr SerPlBld CKD-EPI 2020 68.0 mL/min/1.73m2 04/26/2025 - [facility] Sodium SerPl-sCnc 136.0 mmol/L 04/26/2025 135 - 14 5 [facility] ALT SerPl-cCnc 30.0 unit/L 04/26/2025 7 - 52 CT [facility] Chloride SerPl-sCnc 102.0 mmol/L 04/26/2025 98 - 1 07 [facility] ALP SerPl-cCnc 39.0 unit/L 04/26/2025 34 - 104 CT [facility] MCH RBC Qn Auto 26.9 pcg 04/26/2025 25 - 33 [facility] Hgb Bld-mCnc 12.0 g/dL Below low normal 04/26/2025 13.5 - 18 [facility] RBC # Bld Auto 4.48 M/mcL Below low normal 04/26/2025 4.7 - 6 [facility] Hct VFr Bld Auto 36.9 % Below low normal 04/26/2025 40 - 54 [facility] Platelet # Bld Auto 287.0 K/mcL 04/26/2025 150 - 4 50 [facility] MCHC RBC Auto-EntMCnc 32.6 g/dL 04/26/2025 32 - 36 [facility] RDW RBC Auto 15.7 % 04/26/2025 12.1 - 17.7 [facility] RBC Auto 82.4 FL 04/26/2025 78 - 100 [facility] WBC # Bld Auto 10.7 K/mcL Above high normal 04/26/2025 4 - 1 0.5 [facility] PMV Bld Auto 7.6 FL 04/26/2025 7.4 - 11.4 [facility] Lactate Bld-sCnc 1.5 mmol/L 04/26/2025 0.5 - 2.2 C [facility] L pneumo Ag Ur Ql IA Negative 04/28/2025 - [facility] Galactomannan Ag SerPl Ql IA NOT DETECTED 05/01/2025 [facility] Galactomannan Ag SerPl IA-aCnc <0.50 05/01/2025 [facility] 1,3 beta glucan Ser-mCnc <31 04/29/2025 - 80 [facility] Fungitell Titer (Serum) TNP 04/29/2025 [facility] Magnesium SerPl-mCnc 2.1 mg/dL 04/25/2025 1.7 - 2.8 [facility] Potassium SerPl-sCnc 4.1 mmol/L 04/25/2025 3.5 - 5.1 [facility] CO2 SerPl-sCnc 26.0 mmol/L 04/25/2025 24 - 32 CT [facility] Chloride SerPl-sCnc 98.0 mmol/L 04/25/2025 98 - 10 7 [facility] Prot SerPl-mCnc 6.0 g/dL Below low normal 04/25/2025 6.4 - 8.5 [facility] ALP SerPl-cCnc 42.0 unit/L 04/25/2025 34 - 104 [facility] BUN/Creat SerPl 21.8 Above high normal 04/25/2025 12 - 20 [facility] Creat SerPl-mCnc 1.1 mg/dL 04/25/2025 0.7 - 1.3 CT [facility] Sodium SerPl-sCnc 133.0 mmol/L Below low normal 04/25/2025 1 35 - 145 [facility] Anion Gap SerPl Calc-sCnc 9.0 04/25/2025 5 - 14 [facility] Bilirub SerPl-mCnc 0.6 mg/dL 04/25/2025 0.3 - 1 [facility] ALT SerPl-cCnc 30.0 unit/L 04/25/2025 7 - 52 [facility] Calcium SerPl-mCnc 8.6 mg/dL 04/25/2025 8.4 - 10.2 [facility] AST SerPl-cCnc 25.0 unit/L 04/25/2025 5 - 40 CT [facility] eGFRcr SerPlBld CKD-EPI 2020 75.0 mL/min/1.73m2 04/25/2025 - [facility] Glucose SerPl-mCnc 142.0 mg/dL Above high normal 04/25/2025 70 - 99 [facility] BUN SerPl-mCnc 24.0 mg/dL Above high normal 04/25/2025 9 - 2 0 [facility] Albumin SerPl-mCnc 3.4 g/dL Below low normal 04/25/2025 3.5 - 5 [facility] WBC # Bld Auto 8.5 K/mcL 04/25/2025 4 - 10.5 [facility] RBC # Bld Auto 4.57 M/mcL Below low normal 04/25/2025 4.7 - 6 [facility] Platelet # Bld Auto 266.0 K/mcL 04/25/2025 150 - 4 50 [facility] MCH RBC Qn Auto 27.6 pcg 04/25/2025 25 - 33 [facility] PMV Bld Auto 7.9 FL 04/25/2025 7.4 - 11.4 [facility] RBC Auto 82.9 FL 04/25/2025 78 - 100 [facility] Hct VFr Bld Auto 37.8 % Below low normal 04/25/2025 40 - 54 [facility] MCHC RBC Auto-EntMCnc 33.3 g/dL 04/25/2025 32 - 36 [facility] RDW RBC Auto 15.2 % 04/25/2025 12.1 - 17.7 [facility] Hgb Bld-mCnc 12.6 g/dL Below low normal 04/25/2025 13.5 - 18 [facility] pCO2 BldV 44.0 mmHg 04/25/2025 [facility] pO2 BldV 89.0 mmHg 04/25/2025 [facility] Base excess BldV Calc-sCnc 1.2 mmol/L 04/25/2025 [facility] pH BldV 7.39 pH 04/25/2025 7.35 - 7.45 [facility] SaO2 % BldV 98.6 % 04/25/2025 [facility] HCO3 BldV-sCnc 25.8 mmol/L 04/25/2025 CT [facility] MRB mecC Islt/Spm Ql Not Detected 04/25/2025 - [facility] Procalcitonin SerPl-mCnc 8.77 ng/mL Above high normal 04/24/2025 - [facility] Prot SerPl-mCnc 5.9 g/dL Below low normal 04/24/2025 6.4 - 8.5 [facility] Albumin/Glob SerPl 1.4 04/24/2025 [facility] ALT SerPl-cCnc 31.0 unit/L 04/24/2025 7 - 52 [facility] ALP SerPl-cCnc 40.0 unit/L 04/24/2025 34 - 104 CT [facility] Globulin Ser Calc-mCnc 2.5 g/dL 04/24/2025 2.3 - 3.5 [facility] AST SerPl-cCnc 29.0 unit/L 04/24/2025 5 - 40 [facility] Bilirub Direct SerPl-mCnc 0.1 mg/dL 04/24/2025 0 - 0.2 [facility] Bilirub SerPl-mCnc 0.5 mg/dL 04/24/2025 0.3 - 1 [facility] Albumin SerPl-mCnc 3.4 g/dL Below low normal 04/24/2025 3.5 - 5 [facility] Creat SerPl-mCnc 1.3 mg/dL 04/24/2025 0.7 - 1.3 CT [facility] BUN/Creat SerPl 16.2 04/24/2025 12 - 20 [facility] Anion Gap SerPl Calc-sCnc 10.0 04/24/2025 5 - 14 [facility] Glucose SerPl-mCnc 137.0 mg/dL 04/24/2025 70 - 199 [facility] eGFRcr SerPlBld CKD-EPI 2020 62.0 mL/min/1.73m2 04/24/2025 - [facility] CO2 SerPl-sCnc 22.0 mmol/L Below low normal 04/24/2025 24 - 32 [facility] Potassium SerPl-sCnc 4.5 mmol/L 04/24/2025 3.5 - 5.1 [facility] Sodium SerPl-sCnc 133.0 mmol/L Below low normal 04/24/2025 1 35 - 145 [facility] Chloride SerPl-sCnc 101.0 mmol/L 04/24/2025 98 - 1 07 [facility] Calcium SerPl-mCnc 8.3 mg/dL Below low normal 04/24/2025 8.4 - 10.2 [facility] BUN SerPl-mCnc 21.0 mg/dL Above high normal 04/24/2025 9 - 2 0 [facility] RBC # Bld Auto 4.6 M/mcL Below low normal 04/24/2025 4.7 - 6 [facility] Hct VFr Bld Auto 38.9 % Below low normal 04/24/2025 40 - 54 [facility] Basophils # Bld Auto 0.0 K/mcL 04/24/2025 0 - 0.2 [facility] Neutrophils NFr Bld Auto 94.0 % Above high normal 04/24/2025 44 - 74 [facility] RDW RBC Auto 15.4 % 04/24/2025 12.1 - 17.7 [facility] WBC # Bld Auto 9.3 K/mcL 04/24/2025 4 - 10.5 [facility] Neutrophils # Bld Auto 8.8 K/mcL Above high normal 04/24/2025 1.8 - 7.8 [facility] MCHC RBC Auto-EntMCnc 32.0 g/dL 04/24/2025 32 - 36 [facility] MCH RBC Qn Auto 27.1 pcg 04/24/2025 25 - 33 [facility] Eosinophil NFr Bld Auto 0.0 % 04/24/2025 0 - 6 [facility] RBC Auto 84.6 FL 04/24/2025 78 - 100 [facility] Basophils NFr Bld Auto 0.1 % 04/24/2025 0 - 2 [facility] Eosinophil # Bld Auto 0.0 K/mcL 04/24/2025 0 - 0.5 [facility] Hgb Bld-mCnc 12.4 g/dL Below low normal 04/24/2025 13.5 - 18 [facility] Lymphocytes NFr Bld Auto 2.0 % Below low normal 04/24/2025 20 - 48 [facility] Monocytes NFr Bld Auto 3.9 % 04/24/2025 2 - 12 [facility] PMV Bld Auto 7.5 FL 04/24/2025 7.4 - 11.4 [facility] Monocytes # Bld Auto 0.4 K/mcL 04/24/2025 0 - 0.8 [facility] Platelet # Bld Auto 249.0 K/mcL 04/24/2025 150 - 4 50 [facility] Lymphocytes # Bld Auto 0.2 K/mcL Below low normal 04/24/2025 1 - 3.2 [facility] Lactate Bld-sCnc 1.5 mmol/L 04/24/2025 0.5 - 2.2 C [facility] SARS-CoV-2 RNA Nph Ql SUSAN+non-probe Not Detected 04/24/2025 [facility] HPIV3 RNA Nph Ql SUSAN+probe Not Detected 04/24/2025 [facility] FLUAV RNA Nph Ql SUSAN+non-probe Not Detected 04/24/2025 [facility] HCoV 229E RNA Spec Ql SUSAN+probe Not Detected 04/24/2025 [facility] RSV RNA Resp Ql SUSAN+probe Not Detected 04/24/2025 [facility] K pneumon DNA Spec Ql SUSAN+probe Not Detected 04/24/2025 [facility] B parap [id number] DNA Nph Ql SUSAN+non-probe Not Detected 04/24/2025 [facility] HPIV1 RNA Nph Ql SUSAN+probe Not Detected 04/24/2025 [facility] HCoV OC43 RNA Nph Ql SUSAN+non-probe Not Detected 04/24/2025 [facility] hMPV B RNA Spec Ql SUSAN+probe Not Detected 04/24/2025 [facility] HPIV2 RNA Nph Ql SUSAN+probe Not Detected 04/24/2025 [facility] HCoV NL63 RNA Aspirate Ql SUSAN+probe Not Detected 04/24/2025 [facility] RV+EV RNA Nph Ql SUSAN+probe Not Detected 04/24/2025 [facility] HCoV HKU1 RNA Nph Ql SUSAN+non-probe Not Detected 04/24/2025 [facility] FLUBV RNA Nph Ql SUSAN+non-probe Not Detected 04/24/2025 [facility] HAdV DNA Upper resp Ql SUSAN+probe Not Detected 04/24/2025 [facility] B pert DNA Nph Ql SUSAN+probe Not Detected 04/24/2025 [facility] HPIV4 RNA Nph Ql SUSAN+probe Not Detected 04/24/2025 [facility] C pneum DNA Nph Ql SUSAN+probe Not Detected 04/24/2025 [facility] Hgb Ur Ql Negative 04/24/2025 - [facility] Color Ur Yellow 04/24/2025 - [facility] Clarity Ur Clear 04/24/2025 - [facility] pH Ur 5.5 pH 04/24/2025 5 - 8 [facility] Ketones Ur-mCnc Trace Abnormal 04/24/2025 - [facility]_ [facility] Prot Ur Strip-mCnc 30.0 mg/dL Abnormal 04/24/2025 - [facility] Glucose Ur Ql Negative 04/24/2025 - [facility] Sp Gr Ur 1.02 04/24/2025 1.005 - 1.03 [facility] Nitrite Ur Ql Negative 04/24/2025 - [facility] Leukocyte esterase Ur Ql Strip Negative 04/24/2025 - [facility] Lactate Bld-sCnc 1.2 mmol/L 04/24/2025 - C [facility] Arterial patency Wrist a Pass 04/24/2025 - [facility] pCO2 BldA 32.0 mmHg Below low normal 04/24/2025 35 - 45 CT [facility] HCO3 BldA-sCnc 24.1 mmol/L 04/24/2025 22 - 26 CT _[facility] pH BldA 7.45 pH 04/24/2025 7.35 - 7.45 [facility] pO2 BldA 83.0 mmHg 04/24/2025 80 - 105 [facility] Base excess BldA Calc-sCnc -1.0 mmol/L Below low normal 04/24/2025 0 - 2 [facility] SaO2 % BldA 97.1 % 04/24/2025 95 - 98 [facility] H Beba index Bld+IhG-Rto 100.0 04/24/2025 [facility] RSV RNA Resp Ql SUSAN+probe Negative 04/24/2025 [facility] SARS-CoV-2 RNA Resp Ql SUSAN+probe Negative 04/24/2025 [facility] FLUBV RNA Nph Ql SUSAN+probe Negative 04/24/2025 [facility] FLUAV RNA Nph Ql SUSNA+probe Negative 04/24/2025 [facility] Troponin I SerPl HS-mCnc 12.0 ng/L 04/24/2025 0 - 20 [facility] BNP SerPl-mCnc 194.0 pcg/mL Above high normal 04/24/2025 0 - 100 [facility] RDW RBC Auto 15.2 % 04/24/2025 12.1 - 17.7 [facility] Basophils # Bld Auto <0.03 K/mcL 04/24/2025 0 - 0.2 [facility] RBC Auto 84.1 FL 04/24/2025 78 - 100 [facility] Monocytes NFr Bld Auto 3.2 % 04/24/2025 2 - 12 [facility] Lymphocytes NFr Bld Auto 5.5 % Below low normal 04/24/2025 20 - 48 [facility] Monocytes # Bld Auto 0.28 K/mcL 04/24/2025 0 - 0.8 [facility] MCHC RBC Auto-EntMCnc 32.5 g/dL 04/24/2025 32 - 36 [facility] Eosinophil # Bld Auto <0.03 K/mcL 04/24/2025 0 - 0.5 [facility] Lymphocytes # Bld Auto 0.48 K/mcL Below low normal 04/24/2025 1 - 3.2 [facility] PMV Bld Auto 9.1 FL 04/24/2025 7.4 - 11.4 [facility] MCH RBC Qn Auto 27.3 pcg 04/24/2025 25 - 33 [facility]_ [facility] Platelet # Bld Auto 246.0 K/mcL 04/24/2025 150 - 4 50 [facility] Hgb Bld-mCnc 13.1 g/dL Below low normal 04/24/2025 13.5 - 18 [facility] Eosinophil NFr Bld Auto 0.0 % 04/24/2025 0 - 6 [facility] RBC # Bld Auto 4.79 M/mcL 04/24/2025 4.7 - 6 [facility]_ [facility] WBC # Bld Auto 8.8 K/mcL 04/24/2025 4 - 10.5 [facility] Neutrophils # Bld Auto 7.92 K/mcL Above high normal 04/24/2025 1.8 - 7.8 [facility] Basophils NFr Bld Auto 0.2 % 04/24/2025 0 - 2 [facility] Neutrophils NFr Bld Auto 90.5 % Above high normal 04/24/2025 44 - 74 [facility] Hct VFr Bld Auto 40.3 % 04/24/2025 40 - 54 CT _[facility] Glucose SerPl-mCnc 123.0 mg/dL 04/24/2025 70 - 199 [facility] Bilirub SerPl-mCnc 0.7 mg/dL 04/24/2025 0.3 - 1 [facility] Chloride SerPl-sCnc 98.0 mmol/L 04/24/2025 98 - 10 7 [facility] Creat SerPl-mCnc 1.43 mg/dL Above high normal 04/24/2025 0.7 - 1.3 [facility] BUN/Creat SerPl 15.4 04/24/2025 12 - 20 [facility]_ [facility] CO2 SerPl-sCnc 24.0 mmol/L 04/24/2025 24 - 32 CT _[facility] Sodium SerPl-sCnc 133.0 mmol/L Below low normal 04/24/2025 1 35 - 145 [facility] BUN SerPl-mCnc 22.0 mg/dL Above high normal 04/24/2025 9 - 2 0 [facility] Anion Gap SerPl Calc-sCnc 11.0 04/24/2025 5 - 14 [facility] ALP SerPl-cCnc 43.0 unit/L 04/24/2025 34 - 104 CT [facility] Potassium SerPl-sCnc 4.3 mmol/L 04/24/2025 3.5 - 5.1 [facility] eGFRcr SerPlBld CKD-EPI 2020 55.0 mL/min/1.73m2 Below low normal 04/24/2025 - [facility] ALT SerPl-cCnc 35.0 unit/L 04/24/2025 7 - 52 [facility] Prot SerPl-mCnc 6.6 g/dL 04/24/2025 6.4 - 8.5 CT_ [facility] Albumin SerPl-mCnc 3.9 g/dL 04/24/2025 3.5 - 5 [facility] Calcium SerPl-mCnc 8.4 mg/dL 04/24/2025 8.4 - 10.2 [facility] AST SerPl-cCnc 26.0 unit/L 04/24/2025 5 - 40 CT [facility] Magnesium SerPl-mCnc 1.8 mg/dL 04/24/2025 1.7 - 2.8 [facility] Lactate Bld-sCnc 3.3 mmol/L Above high normal 04/24/2025 - [facility] D Dimer PPP DDU-mCnc 686.0 ng/mL DDU Above high normal 04/24/2025 - 231 [facility]AN History of Medication Use Medication Directions Dispensed Refills Start Date End Date Status cefpodoxime (VANTIN) 200 mg tablet Take 1 tablet (200 mg total) by mouth 2 (two) times a day for 2 days. active doxycycline (VIBRAMYCIN) 100 mg capsule Take 1 capsule (100 mg total) by mouth 2 (two) times a day for 2 days. Take with at least 8 ounces (large glass) of water, do not lie down for 30 minutes after. Administer 2 hours before or after multivitamins, antacids, or other products containing polyvalent cations (i.e., calcium, iron, magnesium 5 active vancomycin (VANCOCIN) 1,500 mg in sodium chloride 0.9 % 500 mL IVPB 1,500 mg, intravenous, at 333.3 mL/hr, Administer over 90 Minutes, Every 8 hours, First dose (after last modification) on Sat04/27/25 at 1645, For 12 doses, Indication: Pneumonia, Community Acquired 5 05/01/20 25 active acetylcysteine (MUCOMYST) 100 mg/mL (10 %) solution 400 mg 400 mg (4 mL), nebulization, 2 times daily, First dose on Sat04/27/25 at 1200 5 active benzocaine-menthoL (CEPACOL SORE THROAT) 15-3.6 mg lozenge 1 lozenge 1 lozenge, Mouth/Throat, Every 2 hours PRN, sore throat, Starting on Sat04/26/25 at 2310 5 active dextromethorphan-guaiF ENesin (ROBITUSSIN-DM) 10-100 mg/5 mL syrup 5 mL 5 mL, oral, Every 4 hours PRN, cough, Starting on Sat04/27/25 at 1419 5 active loperamide (IMODIUM) capsule 2 mg 2 mg, oral, 4 times daily PRN, diarrhea, Starting on Sat04/27/25 at 1415 5 active vancomycin (VANCOCIN) 1,000 mg in sodium chloride 0.9 % 250 mL IVPB 1,000 mg, intravenous, at 250 mL/hr, Administer over 60 Minutes, Every 8 hours, First dose (after last modification) on Sat04/26/25 at 0845, For 3 days, Indication: Pneumonia, Community Acquired 5 04/27/20 25 aborted furosemide (LASIX) injection 40 mg 40 mg, intravenous, Once, On Sat04/26/25 at 0130, For 1 dose 5 04/26/20 active HYDROmorphone (DILAUDID) injection 0.5 mg 0.5 mg, intravenous, Once, On Sat04/26/25 at 0130, For 1 dose 5 04/26/20 completed famotidine (PEPCID) tablet 20 mg [Order 1 Start] Name: famotidine (PEPCID) tablet 20 mg Signed Summary: 20 mg, oral, 2 times daily, First dose on Sat04/26/25 at 0145 [Order 1 End] [Order 2 Start] Name: famotidine (PF) (PEPCID) injection 20 mg Signed Summary: 20 mg, intravenous, Administer over 2 Minutes, 2 times daily, First dose o active furosemide (LASIX) injection 20 mg 20 mg, intravenous, BID Diuretic, First dose (after last modification) on Sat04/27/25 at 0900, For 8 doses 5 04/30/20 active azithromycin (ZITHROMAX) 500 mg in sodium chloride 0.9 % 250 mL IVPB 500 mg, intravenous, at 250 mL/hr, Administer over 60 Minutes, Every 24 hours, First dose on Sat04/25/25 at 0000, For 7 doses, Indication: Pneumonia, Community Acquired 5 04/29/20 aborted guaiFENesin (ROBITUSSIN) 100 mg/5 mL liquid 200 mg 200 mg, oral, Every 6 hours PRN, cough, Starting on Sat04/25/25 at 0331 5 04/27/20 aborted iopamidoL (ISOVUE-370) 370 mg iodine /mL (76 %) injection 100 mL 100 mL, intravenous, Once in imaging, Starting on Sat04/25/25 at 1528, For 1 dose 5 04/25/20 completed sodium chloride 0.9 % intravenous solution 50 mL 50 mL, intravenous, Once in imaging, Starting on Sat04/25/25 at 1528, For 1 dose 5 04/25/20 completed butalbital-acetaminoph en-caffeine (FIORICET, ESGIC) 50-325-40 mg per tablet 1 tablet 1 tablet, oral, Every 4 hours PRN, headaches, Starting on Sat04/25/25 at 0935, For 4 doses 5 active gabapentin (NEURONTIN) capsule 400 mg 400 mg, oral, Nightly, First dose on 04/24/25 at 2100 5 active guaiFENesin (MUCINEX) 12 hr tablet 600 mg 600 mg, oral, Every 12 hours scheduled, First dose on 04/25/25 at 0900, Administer with plenty of fluids to ensure proper action. Do not crush, chew, or split. 5 active montelukast (SINGULAIR) tablet 10 mg 10 mg, oral, Nightly, First dose on 04/24/25 at 2100 5 active primidone (MYSOLINE) tablet 250 mg 250 mg, oral, Nightly, First dose (after last reorder) on 04/24/25 at 2100 5 active rOPINIRole (REQUIP) tablet 1 mg 1 mg, oral, Nightly, First dose on 04/24/25 at 2100 5 active SUMAtriptan (IMITREX) subcutaneous solution 6 mg 6 mg, subcutaneous, Once, On 04/25/25 at 1300, For 1 dose, Do not exceed 2 doses in 24 hours and do not exceed 12 mg in 24 hours. Administer via SUBCUTANEOUS route ONLY 5 active venlafaxine XR (EFFEXOR-XR) 24 hr capsule 225 mg 225 mg, oral, Daily with breakfast, First dose on 04/25/25 at 0800, Capsule may be swallowed whole, or may be opened and its contents sprinkled on applesauce if consumed immediately without chewing. Do not crush or chew. 5 active vibegron (GEMTESA) tablet 75 mg PATIENT OWN MED 75 mg, oral, Nightly, First dose on 04/24/25 at 2100, Drug Name: Gemtesa, Form: tablet, Length of Therapy: Indefinite, How soon needed? (normally 72 hrs needed to procure): 0-24 hrs, Reason for Non-Formulary: BPH with urinary obstruction 5 active methylPREDNISolone sodium succ (SOLU-Medrol) injection 40 mg 40 mg, intravenous, Every 6 hours scheduled, First dose (after last modification) on Sat04/28/25 at 1930, Reconstitute each 40 mg vial with 1 mL sterile water for injection to a concentration of 40 mg/mL. 04/28/20 active acetylcysteine (MUCOMYST) 100 mg/mL (10 %) solution 600 mg 600 mg (6 mL), nebulization, Every 8 hours PRN, productive cough unresponsive to lozenges or robitussin, Starting on Sat04/27/25 at 0257 04/26/20 active niacin tablet 500 mg 500 mg, oral, 2 times daily with meals, First dose (after last reorder) on Sat04/25/25 at 0800 04/26/20 aborted sodium chloride 0.9 % flush 10 mL 10 mL, intravenous, Once, On Sat04/25/25 at 1545, For 1 dose 5 04/25/20 completed acetaminophen (TYLENOL) tablet 1,000 mg 1,000 mg, oral, Once, On 04/24/25 at 0603, For 1 dose 5 04/24/20 completed azithromycin (ZITHROMAX) 500 mg in sodium chloride 0.9 % 250 mL IVPB 500 mg, intravenous, at 250 mL/hr, Administer over 60 Minutes, Once, On 04/24/25 at 0606, For 1 dose, Indication: Sepsis, Suspected source: lungs 04/24/20 completed cefTRIAXone (ROCEPHIN) 1 g in sterile water 10 mL IV syringe 1 g, intravenous, Administer over 3 Minutes, Once, On 04/24/25 at 0603, For 1 dose, Do not administer simultaneously with any calcium containing solutions via a Y-site in any patient., Indication: Pneumonia, Community Acquired 04/24/20 completed ipratropium-albuteroL (DUONEB) 0.5-2.5 mg/3 mL nebulizer solution 3 mL 3 mL, nebulization, Once, On 04/24/25 at 0552, For 1 dose 5 04/24/20 completed ipratropium-albuteroL (DUONEB) 0.5-2.5 mg/3 mL nebulizer solution 3 mL 3 mL, nebulization, Every 4 hours, First dose (after last modification) on 04/24/25 at 2000 04/24/20 active magnesium sulfate 2 gram/50 mL (4 %) IVPB 2 g 2 g, intravenous, at 25 mL/hr, Administer over 2 Hours, Once, On 04/24/25 at 0638, For 1 dose 5 04/24/20 completed methylPREDNISolone sodium succ (SOLU-Medrol) injection 125 mg 125 mg, intravenous, Once, On 04/24/25 at 0638, For 1 dose, Reconstitute each 125 mg vial with 2 mL sterile water for injection to a concentration of 62.5 mg/mL. 04/24/20 completed sodium chloride 0.9 % bolus 500 mL 500 mL, intravenous, at 1,000 mL/hr, Administer over 30 Minutes, Once, On 04/24/25 at 0619, For 1 dose 04/24/20 completed acetaminophen (TYLENOL) tablet 1,000 mg 1,000 mg, oral, Every 6 hours scheduled, First dose on 04/24/25 at 1348, Scheduled medication for mild pain active buPROPion XL (WELLBUTRIN XL) 24 hr tablet 450 mg 450 mg, oral, Daily, First dose on [facility] 04/24/25 at 1445, Do not crush, chew, or split. active cefepime (MAXIPIME) 2 g in sterile water 20 mL IV syringe 2 g, intravenous, Administer over 5 Minutes, Every 8 hours, First dose on [facility] 04/24/25 at 1424, For 27 doses, Indication: Pneumonia, Community Acquired active dapagliflozin propanediol (FARXIGA) tablet 10 mg 5 active enoxaparin (LOVENOX) injection 40 mg 40 mg, subcutaneous, Every 24 hours scheduled, First dose on 04/24/25 at 1348, Indication: VTE/PE Prophylaxis 5 active SUMAtriptan (IMITREX) tablet 100 mg 100 mg, oral, Once as needed, migraine, severe headache, Starting on 04/25/25 at 0339, For 1 dose, Do not exceed 2 doses in 24 hours and do not exceed 200 mg in 24 hours. 5 active thyroid (pork) (ARMOUR THYROID) tablet 75 mg 75 mg, oral, Daily, First dose on 04/24/25 at 1445 5 active aspirin EC tablet 81 mg 81 mg, oral, Daily, First dose on 04/24/25 at 1445, Do not crush, chew, or split. 5 active metoprolol succinate (TOPROL-XL) 24 Hour tablet 25 mg 25 mg, oral, Daily, First dose on 04/24/25 at 1445, Do not crush or chew. 5 active niacin 500 mg tablet TAKE 1 TABLET BY MOUTH TWICE A DAY 5 active spironolactone (ALDACTONE) tablet 25 mg 5 active furosemide (LASIX) tablet 20 mg 20 mg, oral, Daily, First dose on 04/25/25 at 0900 5 04/26/20 25 aborted spironolactone (ALDACTONE) 25 mg tablet TAKE 1 TABLET BY MOUTH EVERY DAY 5 active ezetimibe (ZETIA) 10 mg tablet TAKE 1 TABLET BY MOUTH EVERY DAY 5 active ezetimibe (ZETIA) tablet 10 mg 10 mg, oral, Daily, First dose on 04/24/25 at 1445 5 active furosemide (LASIX) 20 mg tablet TAKE 1 TABLET BY MOUTH EVERY DAY 4 active sacubitriL-valsartan (Entresto) 24-26 mg per tablet Take 1 tablet by mouth 2 (two) times a day. 4 active sacubitriL-valsartan (ENTRESTO) 24-26 mg per tablet 1 tablet 4 active citalopram (celeXA) 20 mg tablet Take 20 mg by mouth. 1 active clobetasoL (TEMOVATE) 0.05 % external solution PLEASE SEE ATTACHED FOR DETAILED DIRECTIONS 1 active FLOVENT HFA 220 mcg/actuation inhaler Inhale 2 puffs 2 (two) times a day. 8 active LYRICA 50 mg capsule Take 50 mg by mouth daily. 8 active tadalafiL (CIALIS) 5 mg tablet Take 5 mg by mouth 2 (two) times a day. 7 active doxazosin (CARDURA) 1 mg tablet Take 1 mg by mouth 2 (two) times a day. 7 09/11/19 24 aborted montelukast (SINGULAIR) 10 mg tablet Take 10 mg by mouth nightly. 7 active primidone (MYSOLINE) 50 mg tablet Take 100 mg by mouth nightly. 5 active guselkumab (TREMFYA IV) Infuse into a venous catheter. 04/24/20 25 aborted vedolizumab (ENTYVIO) 300 mg recon soln Infuse 5 mL (300 mg total) into a venous catheter every 30 (thirty) days. 04/24/20 25 aborted clopidogrel bisulfate (PLAVIX ORAL) Take by mouth. 09/11/19 24 active aspirin 81 mg EC tablet Take 1 tablet (81 mg total) by mouth 1 (one) time each day. active buPROPion XL (WELLBUTRIN XL) 150 mg 24 hr tablet Take 1 tablet (150 mg total) by mouth 1 (one) time each day. Do not crush, chew, or split. active buPROPion XL (WELLBUTRIN XL) 150 mg 24 hr tablet Take 1 tablet (150 mg total) by mouth 1 (one) time each day. Do not crush, chew, or split. active buPROPion XL (WELLBUTRIN XL) 300 mg 24 hr tablet Take 1 tablet (300 mg total) by mouth 1 (one) time each day. Do not crush, chew, or split. active buPROPion XL (WELLBUTRIN XL) 300 mg 24 hr tablet Take 1 tablet (300 mg total) by mouth 1 (one) time each day. Do not crush, chew, or split. active celecoxib (CeleBREX) 100 mg capsule Take 100 mg by mouth 2 (two) times a day. active dapagliflozin propanediol (FARXIGA) 10 mg tablet Take 1 tablet (10 mg total) by mouth 1 (one) time each day. active dupilumab (DUPIXENT) 300 mg/2 mL syringe Inject 2 mL (300 mg total) under the skin every 14 (fourteen) days. active famotidine (PEPCID) 20 mg tablet Take 1 tablet (20 mg total) by mouth 1 (one) time each day. active famotidine (PEPCID) 40 mg tablet Take 1 tablet (40 mg total) by mouth 1 (one) time each day. active famotidine (PEPCID) 40 mg tablet Take 1 tablet (40 mg total) by mouth 1 (one) time each day. active fluticasone HFA (FLOVENT HFA) 220 mcg/actuation inhaler Inhale 1 puff by mouth 2 (two) times a day. Rinse mouth with water after use to reduce aftertaste and incidence of candidiasis. Do not swallow. active fluticasone HFA (FLOVENT HFA) 220 mcg/actuation inhaler Inhale 1 puff by mouth 2 (two) times a day. Rinse mouth with water after use to reduce aftertaste and incidence of candidiasis. Do not swallow. active fluticasone propion-salmeteroL (ADVAIR DISKUS) 500-50 mcg/dose diskus inhaler Inhale 1 puff by mouth 2 (two) times a day. Rinse mouth with water after use to reduce aftertaste and incidence of candidiasis. Do not swallow. active fluticasone-umeclidini um-vilanterol (Trelegy Ellipta) 100-62.5-25 mcg inhaler Inhale 1 puff (100 mcg total) by mouth 1 (one) time each day. Rinse mouth with water after use to reduce aftertaste and incidence of candidiasis. Do not swallow. active fluticasone-umeclidini um-vilanterol (Trelegy Ellipta) 100-62.5-25 mcg inhaler Inhale 1 puff (100 mcg total) by mouth 1 (one) time each day. Rinse mouth with water after use to reduce aftertaste and incidence of candidiasis. Do not swallow. active gabapentin (NEURONTIN) 400 mg capsule Take 1 capsule (400 mg total) by mouth at bedtime. active guselkumab (Tremfya) 200 mg/2 mL Inject 4 mL (400 mg total) under the skin every 28 (twenty-eight) days. active ipratropium-albuterol (DUO-NEB) 0.5-2.5 mg/3 mL nebulizer solution Inhale 3 mL 4 times daily as needed. active levalbuterol (XOPENEX) 1.25 mg/3 mL nebulizer solution every 30 minutes as needed. active loperamide (IMODIUM A-D) 2 mg tablet Take 1 tablet (2 mg total) by mouth 2 (two) times a day if needed for diarrhea. active loperamide (IMODIUM A-D) 2 mg tablet Take 1 tablet (2 mg total) by mouth 2 (two) times a day if needed for diarrhea. active metoprolol succinate (TOPROL-XL) 25 mg 24 hr tablet Take 1 tablet (25 mg total) by mouth 1 (one) time each day. Do not crush or chew. active mirtazapine (REMERON) 45 mg tablet Take 1 tablet (45 mg total) by mouth at bedtime. active montelukast (SINGULAIR) 10 mg tablet Take 1 tablet (10 mg total) by mouth at bedtime. active niacin 500 mg tablet Take 1 tablet (500 mg total) by mouth 1 (one) time each day with breakfast. active ondansetron ODT (ZOFRAN-ODT) 4 mg disintegrating tablet Dissolve 1 tablet (4 mg total) on top of the tongue every 8 (eight) hours if needed for nausea or vomiting. active ondansetron ODT (ZOFRAN-ODT) 4 mg disintegrating tablet Dissolve 1 tablet (4 mg total) on top of the tongue every 8 (eight) hours if needed for nausea or vomiting. active primidone (MYSOLINE) 50 mg tablet Take 1 tablet (50 mg total) by mouth 4 (four) times a day. active rOPINIRole (REQUIP) 1 mg tablet Take 1 tablet (1 mg total) by mouth at bedtime. active rOPINIRole (REQUIP) 1 mg tablet Take 1 tablet (1 mg total) by mouth at bedtime. active SUMAtriptan (IMITREX) 100 mg tablet Take 1 tablet (100 mg total) by mouth 1 (one) time if needed for migraine. May repeat dose once in 2 hours if no relief. Do not exceed 2 doses in 24 hours. active SUMAtriptan (IMITREX) 100 mg tablet Take 1 tablet (100 mg total) by mouth 1 (one) time if needed for migraine. May repeat dose once in 2 hours if no relief. Do not exceed 2 doses in 24 hours. active thyroid, pork, (ARMOUR THYROID) 15 mg tablet Take 5 tablets (75 mg total) by mouth 1 (one) time each day. active thyroid, pork, (ARMOUR THYROID) 15 mg tablet Take 5 tablets (75 mg total) by mouth 1 (one) time each day. active tramadol HCl (TRAMADOL ORAL) Take 50 mg by mouth every 12 (twelve) hours if needed. Max Daily Amount: 100 mg active vedolizumab (ENTYVIO) 300 mg recon soln Infuse 5 mL (300 mg total) into a venous catheter every 30 (thirty) days. active venlafaxine (EFFEXOR) 37.5 mg tablet Take 1 tablet (37.5 mg total) by mouth 2 (two) times a day. active venlafaxine (EFFEXOR) 37.5 mg tablet Take 1 tablet (37.5 mg total) by mouth 2 (two) times a day. active vibegron (GEMTESA) 75 mg tablet tablet Take 1 tablet (75 mg total) by mouth at bedtime. active Allergies Allergen Reaction Severity Comment Documented Date Source Statu s ADHESIVE RASH 10/04/2024 [facility] active CAT DANDER Other reaction(s): runny nose sneezing 07/09/2022 [facility] active ADHESIVE TAPE-SILICONES SWELLINGRASH Paper tape is ok 03/08/2021 [facility] active Problems Problem Status Onset Date Problem Type Date of Resolution Source Malignant melanoma of scalp ([facility] V24[facility] V28) active 2024-07-06 ProblemAct [facility] Tyshawn level IV melanoma ([facility] V24, [facility] V28) active 2024-10-05 ProblemAct [facility] Anxiety and depression active 2025-04-24 ProblemAct [facility] Moderate asthma active 2019-06-[address] [facility] NATALIYA on CPAP active 2021-09-13 ProblemAct [facility] Mixed hyperlipidemia active 2024-07-22 ProblemAct [facility] Severe persistent asthma ([facility] V28) active 2024-10-05 ProblemAct [facility] Temporomandibular joint disorder active 2017-05-03 ProblemAct [facility] Chronic kidney disease (CKD) stage G3a/A1, moderately decreased glomerular filtration rate (GFR) between 45-59 mL/min/1.73 square meter and albuminuria creatinine ratio les* ([facility] V24, [facility] V28) active 2021-11-30 ProblemAct [facility] Osteoarthritis of acromioclavicular joint active 2018-10-02 ProblemAct [facility] Overactive bladder active 2025-04-25 ProblemAct [facility] Crohn's disease ([facility] V24, [facility] V28) active 2024-10-05 ProblemAct [facility] Migraine headache active 2019-06-24 ProblemAct [facility] Crohn's disease of colon ([facility] V24, [facility] V28) active 2019-06-24 ProblemAct [facility] Restless leg syndrome active 2025-04-24 ProblemAct [facility] CAD (coronary artery disease) active 2024-07-22 ProblemAct [facility] BPH with urinary obstruction active 2019-06-24 ProblemAct [facility] Essential tremor active 2025-04-24 ProblemAct C [facility] Lumbar stenosis with neurogenic claudication active 2024-10-05 ProblemAct [facility] HFrEF (heart failure with reduced ejection fraction) ([facility] V24, [facility] V28) active 2024-07-22 ProblemAct [facility] Acquired hypothyroidism active 2019-06-24 ProblemAct [facility] Pneumonia of both lungs due to infectious organism, unspecified part of lung active EncounterDiagnosisAct [facility] Osteoarthritis of multiple joints active 2024-10-05 ProblemAct [facility] Androgen deficiency active 2024-10-05 ProblemAct [facility] Acute respiratory failure with hypoxia ([facility] V24, [facility] V28) active 2025-04-24 ProblemAct [facility] Hypoxia active EncounterDiagnosisAct [facility] Sepsis, due to unspecified organism, unspecified whether acute organ dysfunction present ([facility] V24, [facility] V28) active EncounterDiagnosisAct [facility] Umbilical hernia without obstruction and without gangrene active 2020-09-15 ProblemAct [facility] Foot mass, left active EncounterDiagnosisAct [facility] Right inguinal hernia active 2020-09-15 ProblemAct [facility] Posterior tibialis tendon insufficiency active 2018-01-17 ProblemAct [facility] Achilles tendinitis of left lower extremity active 2018-01-17 ProblemAct [facility] Immunizations Vaccine Date Source Lot Number Status Moderna SARS-CoV-2 COVID-19, mRNA, LNP-S, preservative free 12/11/2020 [facility] UNK completed Moderna SARS-CoV-2 COVID-19, mRNA, LNP-S, preservative free 12/11/2020 [facility] UNK completed Moderna SARS-CoV-2 COVID-19, mRNA, LNP-S, preservative free 12/11/[facility] Moderna SARS-CoV-2 COVID-19, mRNA, LNP-S, preservative free [facility] Moderna SARS-CoV-2 COVID-19, mRNA, LNP-S, preservative free 11/13/2020 [facility] UNK completed Moderna SARS-CoV-2 COVID-19, mRNA, LNP-S, preservative free 11/13/2020 [facility] completed Encounters Encounter Type Encounter Reason Primary Diagnosis Location Date Inpatient transfer from rifle Acute respiratory failure with hypoxia ([facility] V24, [facility] [place]28[place] [facility] Emergency diff breathing Pneumonia, unspecified organism [facility] 04/24/2025 Ambulatory ROUTINE Unilateral prima ry osteoarthritis, left knee [facility] 10/26/2024 Emergency Fall/foot Injury Other injury of unspecified body region, initial encounter [facility] 10/04/2024 Ambulatory Localized swelling, mass and lump, left Localized swelling, mass and lump, left lower limb formerly [facility] 11/04/2023 Ambulatory ROUTINE Bicipital tendinitis, right shoulder [facility] 10/02/2023 Ambulatory Pain in left foot Pain in left foot [facility] 09/11/2023 Ambulatory Localized swelling, mass and lump, left Localized swelling, mass and lump, left lower limb formerly [facility] 09/11/2023 Emergency Other injury of unspecified body region, initial encounter Other injury of unspecified body region, initial encounter [facility] 08/05/2023 Ambulatory Unilateral ingui nal hernia, without obstruction or gangrene, not specified as recurrent [facility] 08/21/2022 Ambulatory Unilateral ingui nal hernia, without obstruction or gangrene, not specified as recurrent formerly [facility] 07/09/2022 Ambulatory Peroneal tendini tis, left leg [facility] 06/28/2021 Care Team Organization Name Specialty Phone Email Start Date End Da te [facility] 04/24/2025 [facility] 11/11/2024 [facility] 10/04/2024 [facility] [place] 09/25/2023 [facility] [place] 09/25/2023 [facility] 09/22/2023 01/27/2025 [facility] 08/06/2023 01/27/2025 [facility] 12/202208/05/2023 [facility] PIERO MCGUIRE Primary Care 07/09/2008/21/2022 formerly [facility] Piero Mcguire Primary Care 07/09/20
--- OUTSIDE RECORDS SUMMARY | 2025-05-12 14:27 | XMS_ITS | Clinical Summary ---
Author Organization [facility] Address [address] [place] [address] Care Team Providers Care Dump Truck Driver Off [address] Name Role Phone Piero Echevarria MD Primary Care Provider [phone] Allergies Active Allergy Reactions Criticality Noted Date [...] 89 08/05/2023 6:54 PM EST Temperature 37.2 C (99 F) 08/05/2023 6:54 PM EST Respiratory Rate 17 [...] 2 - PCV) 12/26/2019 12/25/2018 COVID-19 Vaccine (2024-2 6 season) 2025 07/25/2021, 12/11/2020, 11/13/2020 Influenza Vaccine (#1) 2025 DTap / Tdap / Td (2 - [...] this topic Medical Devices Implanted Type Area Detail Drafter Device Identifier Shelf Expiration Date Model / Serial / Lot Journey Uni Rtmed/Lt Lat Implanted:Qt y: 1 on 06/07/2015 by Chris Hairston MD at [facility] Total Joint Right: Knee [employer] 07/01/2024 [id number] / / [id number] Cement Simplex P Radiopaque Full Dose Bone - [id number] - [id number] Implanted:Qt y: 1 on 06/07/2015 by Chris Hairston MD at [facility] Right: Knee [employer] 10/01/2017 6191-1-010 / / [id number] Component Femoral Journey Oxinium 6 Knee Right Medial Left L - [id number] - [id number] Implanted:Qt y: 1 on 06/07/2015 by Chris Hairston MD at [facility] Right: Knee [employer] 07/01/2025 [id number] / / [id number] Insert Tibial Journey 5-6 H11 Mm Right Medial Left Lateral - [id number] - [id number] Implanted:Qt y: 1 on 06/07/2015 by Chris Hairston MD at [facility] Right: Knee [employer] 12/31/2023 [id number] / / [id number] Knee Jrny Uni Oxin Fem W\Uni Tib & Inst - [id number] - [id number] Implanted:Qt y: 1 on 06/07/2015 by Chris Hairston MD at [facility] Right: Knee [employer] [id number] / / [place] Sut 2.4mm Cinclk W Fuel Cell Systems Engineer - [id number] - [id number] Implanted:Qt y: 1 on 04/12/2016 by Chris Hairston MD at [facility] Right: Hip [employer] 01/13/2017 [id number] / / [id number] [place] Sut 2.4mm Cinclk W Fuel Cell Systems Engineer - [id number] - [id number] Implanted:Qt y: 1 on 04/12/2016 by Chris Hairston MD at [facility] Right: Hip [employer] 07/18/2017 [id number] / / [id number] [place] Suture Nanotack 1.4mm - [id number] - [id number] Implanted:Qt y: 2 on 04/12/2016 by Chris Hairston MD at [facility] Right: Hip [employer] 07/02/2017 [id number] / / [id number] [place] Sut 2.4mm Cinclk W Fuel Cell Systems Engineer - [id number] - [id number] Implanted:Qt y: 1 on 04/12/2016 by Chris Hairston MD at [facility] Right: Hip [employer] 07/18/2016 [id number] / / [id number] [place] Suture Q-Fix Od2.8 Mm - [id number] - [id number] Implanted:Qt y: 1 on 07/01/2019 by Jett Rodriguez MD at [facility] Left: Elbow [employer] 02/09/2022 [id number] / / [id number] Graft 16cm-19.4cmx 10-20mm Tt Frzn Achils Tndn Specs [facility] - [id number] - [id number] Implanted:Qt y: 1 on 07/01/2019 by Jett Rodriguez MD at [facility] Left: Elbow [employer] FNDTN 01/31/2024 [id number] / [id number] / [place] Sut 5.5mm Fullthrd Med Insite Preld Fr Fbr Sprt Peek - [id number] - [id number] Implanted:Qt y: 2 on 02/03/2020 by Chase Ramirez MD at [facility] Right: Shoulder [employer] 02/17/2022 [id number] / / [id number] Solidback Acetabular Shell 56f Stry-Howm 268-09-17t-7 39870 - [id number] Implanted:Qt y: 1 on 09/05/2021 by Chris Hairston MD at [facility] Right: Hip [employer] [facility] [id number] 05/03/2024 700-04-56F / / [id number] Hip Insrt Poly X3 10deg 36mm Stry-Howm 260-88-85e-2 99331 - [id number] Implanted:Qt y: 1 on 09/05/2021 by Chris Hairston MD at [facility] Right: Hip [employer] [id number] 06/27/2024 623-10-36F / / [id number] Hip Stm Tzf Lopes [address] Stry-Howm [id number] 8406 - [id number] Implanted:Qt y: 1 on 09/05/2021 by Chris Hairston MD at [facility] Right: Hip [employer] [facility] [id number] 12/05/2025 7468-3221 / / [id number] Hip Head Delta Tiffanie 36mm +7.5 Stry-Howm 8003-2-673-5 96827 - [id number] Implanted:Qt y: 1 on 09/05/2021 by Chris Hairston MD at [facility] Right: Hip [employer] [id number] 04/05/2026 6570-0-736 / / [id number] Advance Directives For more information, please contact: [phone] Latest Code Status on File Code Status [...] following way: discussion with patient. Care Teams Dump Truck Driver Off [address] Relationship Specialty Start Date End Date Piero Echevarria MD [address] [place] [address] [place] [address] PCP - General Internal Medicine 08/19/17
--- OUTSIDE RECORDS SUMMARY | 2025-05-12 14:27 | XMS_ITS | Clinical Summary ---
Author Organization [facility] Address [address] [place] [address] Care Team Providers Care Client Development Manager Name Role Phone Piero Echevarria Primary Care Provider [phone] Allergies Active Allergy Reactions Criticality Noted Date [...] (09/15/2020): Added automatically from request for surgery [id number] Umbilical hernia without obstruction and without gangrene 09/15/2020 Overview (09/15/2020): Added automatically from request for surgery [id number] Achilles tendinitis of left lower extremity 12/31 Posterior tibialis tendon insufficiency 01/18/20 18 Immunizations Immunization Administration Dates Next Due COVID-19 MRNA (MODERNA) [...] 80 10/24/2023 2:20 PM EST Temperature 37.1 C (98.7 F) 10/24/2023 1:40 PM EST Respiratory Rate 16 10/24/2023 2:20 PM EST [...] Screening 1960 Hepatitis C Screening 1979 Pneumococcal Vaccine, 50+ Years (2 of 2 - PCV) 12/26/2019 12/25/2018 COVID-19 Vaccine (2024-2 6 season) 2025 07/25/2021, 12/11/2020, 11/13/2020 Influenza Vaccine (#1) 2025 DTaP,Tdap,and Td Vaccines (2 - Td or [...] topic Meningococcal Vaccine Aged Out No ciarra leeno eligible based on patient's age to complete this topic Medical Devices Implanted Type Area Dispatcher Tugboat Device Identifier Shelf Expiration Date Model / Serial / Lot 4 X 6 (10cm X 15cm) Large, Right 3dmax Mesh - [id number] Implanted:Qty: 1 on 10/06/2020 by Abebe Nicholson MD at [facility] Mesh Implant Right: Abdomen [employer], a [employer] 05/30/2025 [id number] / / [id number] Description:inguinal 5mm Abs Cervical Fixation Device, Single Use W/ 30 Tacks, Absorbatrack, Drop-Ship Only - [id number] Implanted:Qty: 1 on 10/06/2020 by Abebe Nicholson MD at [facility] Surgical Fixation Device Right: Abdomen [employer] (formerly [employer]) 03/01/2023 [id number] / / [id number] 1.6mm X 229mm Microaire K-Wire - [id number] Implanted:Qty: 2 on 03/09/2021 at [facility] Surgical Fixation Device [employer] / / Description:not an implant Insurance MEDICARE PART A & B [facility] Advance Directives For more information, please contact: [phone] Documents on File Type Date Recorded Patient Program Associate Expl anation Advance Directives 10/28/2023 12:58 PM Advance Directives 08/18/2018 12:53 PM Care Teams Client Development Manager Relationship Specialty Start Date End Date Piero Echevarria [address] [place] [address] PCP - General Primary Care 06/29/22
--- OUTSIDE RECORDS SUMMARY | 2025-05-12 14:27 | XMS_ITS | Encounter Summary ---
Author Organization [facility] Address [address] [phone] Care Team Providers Care Computer Technology Instructor Name Role Phone Pcp, Essence CRONIN Primary Care Provider Piero Christian Primary Care Provider [phone] Reason for Referral * Physical Therapy (Routine) - Closed Specialty Diagnoses / Procedures Referred By Fernanda holden Referred To Contact Physical Therapy Diagnoses Posterior tibialis tendon insufficiency Achilles tendinitis of left lower extremity Karishma Montero MD [address] [place] [phone] Phone: tel: fax: Referral ID Status Reason Start Date Expiration Date Visits Re quested Visits Authorized [id number] Closed 06/15/2020 12/12/2020 1 1 Encounter Details Date Type Department Care Team (Late st Contact Info) Description 06/15/2020 Orders Only [facility] Department of Orthopedic Surgery [address] [place], [place] [phone] Karishma Montero MD [address] [place] [phone] Posterior tibialis tendon insufficiency (Primary Dx); [...] extremity documented in this encounter Care Teams Computer Technology Instructor Relationship Specialty Start Date End Date Pcp, MD Essence [address] [place] [address] PCP - General Internal Medicine 01/16/18 06/28/22 Piero Echevarria [address] [place] [address] PCP - General Primary Care 06/29/22 documented as of this encounter
--- OUTSIDE RECORDS SUMMARY | 2025-05-12 14:27 | XMS_ITS | Encounter Summary ---
Author Organization [facility] Address [address] [place] [address] Care Team Providers Care Continuous Miner Operator Helper Name Role Phone Essence Krueger MD Primary Care Provider Piero Christian Primary Care Provider [phone] Encounter Details Date Type Department Care Team (Late st Contact Info) Description 03/16/2021 Orders Only [address] [address] Karishma Montero MD [address] [place] [address] [phone] Social History Tobacco Use Types Packs/Day Years [...] on filedocumented in this encounter Care Teams Continuous Miner Operator Helper Relationship Specialty Start Date End Date Essence Krueger MD [address] [place] [phone] PCP - General Internal Medicine 01/16/18 06/28/22 Piero Echevarria [address] [place] [address] PCP - General Primary Care 06/29/22 documented as of this encounter
--- OUTSIDE RECORDS SUMMARY | 2025-05-12 14:27 | XMS_ITS | Encounter Summary ---
Author Organization [facility] [place] [address] Care Team Providers Care Wardrobe Stylist Name Role Phone Piero Echevarria MD Primary Care Provider [phone] Encounter Details Date Type Department Care Team (Late st Contact Info) Description 10/02/2024 Lab Requisition [facility] - Main Lab [address] [facility] [place] [phone] Valentín Bean MD [address] [place] [address] Vitamin D deficiency, unspecified Social History Tobacco [...] Sexual Orientation Choose not to disclose 2024 11:38 AM EDT Sexual Orientation Straight 04/24/2025 11 :38 AM EDT documented as of this encounter Plan of Treatment Upcoming Encounters Date Type Department Care Team (Late st Contact Info) Description 07/06/2025 10:50 AM EST Office Visit [facility] Cardiology [address] [place] [phone] Hari Emanuel MD [address] [place] [address] [place] [phone] documented as of this encounter Procedures Procedure Name Priority Date/Time Associated Diagnosis Comments VITAMIN D 25 HYDROXY Routine 10/02/2024 10:49 AM EST Vitamin D deficiency, unspecified documented in this encounter Results * Vitamin D 25 hydroxy (10/02/2024 10:49 AM EST) Vit D, 25-Hydroxy 45.4 30.0 - 80.0 ng/mL LAB CHEMISTRY METHOD 10/02/2024 2:17 PM EST [facility] Blood Venous blood specimen / Unknown 10/02/2024 10:49 AM EST 10/02/2024 1:16 PM EST Valentín Bean MD LAB BLOOD ORDERABLES Fin al Result Performing Organization Address City/State/[facility] Co de Phone Number [facility] [address] [place] [address], documented in this encounter Visit Diagnoses Diagnosis Vitamin D deficiency, unspecified documented in this encounter Additional Health Concerns Infection Onset Date Last Indicated Resolved Time Respiratory Rule-Out 04/24/2025 04/24/2025 025 6:56 AM EDT COVID-19 Rule-Out 04/24/2025 04/24/2025 04/24/2025 6:56 AM EDT Respiratory Rule-Out 04/24/2025 04/24/20252 025 1:00 PM EDT COVID-19 Rule-Out 04/24/2025 04/24/2025 04/24/2025 1:00 PM EDT documented as of this encounter Care Teams Wardrobe Stylist Relationship Specialty Start Date End Date Piero Echevarria MD [address] [place] [address] PCP - General Internal Medicine 12/21/20 documented as of this encounter
--- OUTSIDE RECORDS SUMMARY | 2025-05-12 14:27 | XMS_ITS | Clinical Summary ---
Author Organization [facility] SpecifiedBy Address [address] [place] [address] Phone Care Team Providers Care Side Sawyer Name Role Phone Piero Echevarria MD Primary Care Provider [phone] Allergies Active Allergy Reactions Criticality Noted Date Comments Adhesive Rash Medium 10/04/2024 Adhesive Tape-Silicones Hives,Rash,Swelling Low 03/2021 Paper tape is ok Medications gabapentin (NEURONTIN) 400 mg capsule Take 1 capsule (400 mg total) by mouth at bedtime. Active dapagliflozin propanediol (FARXIGA) 10 mg tablet [...] mg total) by mouth at bedtime. Active primidone (MYSOLINE) 250 mg tablet Take 1 tablet (250 mg total) by mouth at bedtime. Active [...] mouth 1 (one) time each day. Active sacubitriL-valsart an (Entresto) 24-26 mg per tablet Take 1 tablet by mouth 2 (two) times a day. 180 each 3 08/14/20 24 Active ezetimibe (ZETIA) 10 mg tabletIndications: Atherosclerotic heart disease of [place] coronary artery with other forms of angina pectoris (CMS/HCC V24) TAKE 1 TABLET BY MOUTH EVERY DAY 90 tablet 2 09/30/19 25 Active fluticasone-umecli dinium-vilanterol (Trelegy Ellipta) 100-62.5-25 mcg inhaler Inhale 1 puff (100 mcg total) by mouth 1 (one) time each day. Rinse mouth with water after use to reduce aftertaste and incidence of candidiasis. Do not swallow. Active famotidine (PEPCID) 40 mg tablet Take 1 tablet (40 mg total) by mouth 1 (one) time each day. Active furosemide (LASIX) 20 mg tablet TAKE 1 TABLET BY MOUTH EVERY DAY 90 tablet 1 03/12/20 25 Active niacin 500 mg tabletIndications: Mixed hyperlipidemia TAKE 1 TABLET BY MOUTH TWICE A DAY 180 tablet 2 03/23/20 25 Active spironolactone (ALDACTONE) 25 mg tablet TAKE 1 TABLET BY MOUTH EVERY DAY 90 tablet 1 03/23/20 25 Active metoprolol succinate (TOPROL-XL) 25 mg 24 hr tablet TAKE 1 TABLET BY MOUTH 1 TIME EACH DAY. DO NOT CRUSH OR CHEW. 90 tablet 1 03/23/20 25 Active aspirin 81 mg EC tabletIndications: Atherosclerotic heart disease of [place] coronary artery with other forms of angina pectoris (CMS/HCC V24) TAKE 1 TABLET BY MOUTH EVERY DAY 90 tablet 2 03/25/20 25 Active guselkumab (Tremfya) 200 mg/2 mLIndications:Croh n's disease Inject 4 mL (400 mg total) under the skin every 28 (twenty-eight) days. Active vedolizumab (ENTYVIO) 300 mg recon soln Infuse 5 mL (300 mg total) into a venous catheter every 30 (thirty) days. Discontinu ed(Therapy completed) guselkumab (TREMFYA IV) Infuse into a venous catheter. Discontinu ed(Entered in Error) cefpodoxime (VANTIN) 200 mg tablet Take 1 tablet (200 mg total) by mouth 2 (two) times a day for 2 days. 4 each 04/29/20 25 doxycycline (VIBRAMYCIN) 100 mg capsule Take 1 capsule (100 mg total) by mouth 2 (two) times a day for 2 days. Take with at least 8 ounces (large glass) of water, do not lie down for 30 minutes after. Administer 2 hours before or after multivitamins, antacids, or other products containing polyvalent cations (i.e., calcium, iron, magnesium, selenium, zinc). 4 each 04/29/20 25 025 Active Problems Problem Noted Date Diagnosed Date Overactive bladder 04/25/2025 Assessment & Plan (04/29/2025 8:53 AM EDT): Patient reports taking both Gemtesa 75mg and myrbretriq 50mg Per dispense history, patient last dispensed mirabegron 10/2024. - Will continue gemtesa 75mg while in patient. Assessment & Plan (04/28/2025 10:46 AM EDT): Patient reports taking both Gemtesa 75mg and myrbretriq 50mg Per dispense history, patient last dispensed mirabegron 10/2024. - Will continue gemtesa 75mg while in patient. Assessment & Plan (04/27/2025 12:04 PM EDT): Patient reports taking both Gemtesa 75mg and myrbretriq 50mg Per dispense history, patient last dispensed mirabegron 10/2024. - Will continue gemtesa 75mg while in patient. Assessment & Plan (04/26/2025 9:07 AM EDT): Patient reports taking both Gemtesa 75mg and myrbretriq 50mg Per dispense history, patient last dispensed mirabegron 10/2024. - Will continue gemtesa 75mg while in patient. Assessment & Plan (04/25/2025 4:32 PM EDT): Patient reports taking both Gemtesa 75mg and myrbretriq 50mg Per dispense history, patient last dispensed mirabegron 10/2024. - Will continue gemtesa 75mg while in patient. 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 CTA ruled out PE. Chest x-ray showed bilateral pulmonary opacities, patient was started on antibiotics with concerns for infection, viral respiratory panel negative, partial blood culture negative. Given that patient correlates starting of symptoms with dose of Tremfya injection for Crohn's disease, drug- induced lung injury remains on differential. Possibly also CHF exacerbation (TTE 40-45%) and asthma exacerbation . Pulmonology consulted due to chest CT scan for multiple lung metastasis, they plan on getting bronchoscopy biopsy once patient is stable. Oncology was consulted and patient has contraindication to checkpoint inhibitor therapy, and is in low condition to receive what would be palliative chemotherapy. Drug- induced lung damage has been described with use of guselknumab, specifically a case of alveolar hemorrhage, which is unlikely in this patient. Another differential would be aspergillosis, but unlikely since no increased eosinophils. Patient has been afebrile an hemodynamically stable, being transitioned from HFNC to CT on 04/28. Plan to pursue brain MRI and bronchoscopy lung biopsy. Follow-up with oncologist outpatient to undergo PET scan and molecular testing. Legionella urine antigen negative. - Continue Lasix 20 mg IV twice daily - Legionella urine antigen negative, as per ID reccs, we stopped azithromycin today 04/29 - Continue cefepime, vancomycin for a total of 7 days. - DuoNebs every 4 hour - Pulmicort twice daily - Solu-Medrol 40 mg IV every 6h - Continue home Singulair 10 mg nightly - Chest physiotherapy every 4 hours - Follow fungal [id number]-[id number] and aspergillus galactomannan antigen - Follow cryptococcal antigen - Plan brain MRI with and with contrast when patient is stable for transport and as allowed by kidney function - Plan to bronchoscopy biopsy when clinically is stable - Patient will need outpatient FDG NM/PET, next-generation molecular testing, and follow-up with [facility] and local oncologist on discharge - Possible goals of care discussion pending clinical course. -ID, oncology, pulmonology recs appreciated - Wean O2 as tolerated to keep SpO2 greater than 92%. Currently on 3L NC. Hx of LLE DVT Given context of systemic malignancy, acute respiratory distress and acute hypoxic respiratory failure associated with tachycardia, CTA ordered and PE has been ruled out. Reportedly had remote hx of DVT in left lower extremity. Currently not on Eliquis however, last dispensed 10/2024. 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 CTA ruled out PE. Chest x-ray showed bilateral pulmonary opacities, patient was started on antibiotics with concerns for infection, viral respiratory panel negative, partial blood culture negative. Given that patient correlates starting of symptoms with dose of Tremfya injection for Crohn's disease, drug- induced lung injury remains on differential. Possibly also CHF exacerbation however patient does not appear fluid overload, and possible asthma exacerbation as well. Pulmonology consulted due to chest CT scan for multiple lung metastasis, they plan on getting bronchoscopy biopsy once patient is stable. Oncology was consulted and patient has contraindication to checkpoint inhibitor therapy, and is in low condition to receive what would be palliative chemotherapy. Contacted patient's doctor at [facility] on 04/26, oncologist is on leave, talked to patient's GI doctor, lung side effects of Tremfya include alveolar hemorrhage and aspergillosis due to immunosuppression, but is unlikely since patient's has normal eosinophils. Patient has been afebrile, hemodynamically stable, on high flow nasal cannula, progressively reducing settings -Continue Lasix 20 mg IV twice daily - Continue azithromycin, cefepime, vancomycin - DuoNebs every 4 hour - Pulmicort twice daily - Solu-Medrol 40 mg IV every 8h - Continue home Singulair 10 mg nightly - Chest physiotherapy every 4 hours - Follow fungal ahev-d-myeqzs and aspergillus galactomannan antigen - Follow legionella antigen and cryptococcal antigen - Plan brain MRI with and with contrast when patient is stable for transport and as allowed by kidney function - Plan to bronchoscopy biopsy when clinically is stable - Patient will need outpatient FDG NM/PET, next-generation molecular testing, and follow-up with [facility] and local oncologist on discharge - Possible goals of care discussion pending clinical course. -ID, oncology, pulmonology recs appreciated - Wean O2 as tolerated to keep SpO2 greater than 92%. Currently on HFNC. Hx of LLE DVT Given context of systemic malignancy, acute respiratory distress and acute hypoxic respiratory failure associated with tachycardia, CTA ordered and PE has been ruled out. Reportedly had remote hx of DVT in left lower extremity. Currently not on Eliquis however, last dispensed 10/2024. 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 CTA ruled out PE. Chest x-ray showed bilateral pulmonary opacities, patient was started on antibiotics with concerns for infection, viral respiratory panel negative, partial blood culture negative. Given that patient correlates starting of symptoms with dose of Tremfya injection for Crohn's disease, drug- induced lung injury remains on differential. Possibly also CHF exacerbation however patient does not appear fluid overload, and possible asthma exacerbation as well. Pulmonology consulted due to chest CT scan for multiple lung metastasis, they plan on getting bronchoscopy biopsy once patient is stable. Oncology was consulted and patient has contraindication to checkpoint inhibitor therapy, and is in low condition to receive what would be palliative chemotherapy. Contacted patient's doctor at [facility] on 04/26, oncologist is on leave, talked to patient's GI doctor, lung side effects of Tremfya include alveolar hemorrhage and aspergillosis due to immunosuppression, but is unlikely since patient's has normal eosinophils. -Continue Lasix 20 mg IV twice daily - Continue azithromycin, cefepime, vancomycin - DuoNebs every 4 hour - Pulmicort twice daily - Solu-Medrol 40 mg IV every 8h - Continue home Singulair 10 mg nightly - Chest physiotherapy every 4 hours - Follow fungal aenz-n-mejejx and aspergillus galactomannan antigen - Follow legionella antigen and cryptococcal antigen - Plan brain MRI with and with contrast when patient is stable for transport and as allowed by kidney function - Plan to bronchoscopy biopsy when clinically is stable - Patient will need outpatient FDG NM/PET, next-generation molecular testing, and follow-up with [facility] and local oncologist on discharge - Possible goals of care discussion pending clinical course. -ID, oncology, pulmonology recs appreciated - Wean O2 as tolerated to keep SpO2 greater than 92%. Currently on HFNC. Hx of LLE DVT Given context of systemic malignancy, acute respiratory distress and acute hypoxic respiratory failure associated with tachycardia, CTA ordered and PE has been ruled out. Reportedly had remote hx of DVT in left lower extremity. Currently not on Eliquis however, last dispensed 10/2024. 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 CTA ruled out PE. Chest x-ray showed bilateral pulmonary opacities, patient was started on antibiotics with concerns for infection, viral respiratory panel negative, partial blood culture negative. Given that patient correlates starting of symptoms with dose of Tremfya injection for Crohn's disease, drug- induced lung injury remains on differential. Possibly also CHF exacerbation however patient does not appear fluid overload, and possible asthma exacerbation as well. Pulmonology consulted due to chest CT scan for multiple lung metastasis, they plan on getting bronchoscopy biopsy once patient is stable. Oncology was consulted and patient has contraindication to checkpoint inhibitor therapy, and is in low condition to receive what would be palliative chemotherapy. Contacted patient's doctor at [facility] today, oncologist is on leave, talked to patient's GI doctor, lung side effects of Tremfya include alveolar hemorrhage and aspergillosis due to immunosuppression, but is unlikely since patient's has normal eosinophils. -Start Lasix 20 mg IV twice daily - Continue azithromycin, cefepime, vancomycin - DuoNebs every 4 hour - Pulmicort twice daily - Solu-Medrol 40 mg IV every 8h - Continue home Singulair 10 mg nightly - Chest physiotherapy every 4 hours - Follow fungal vckg-d-khyoxl and aspergillus galactomannan antigen - Follow legionella antigen and cryptococcal antigen - Follow LDH - Plan brain MRI with and with contrast when patient is stable for transport and as allowed by kidney function - Plan to bronchoscopy biopsy when clinically is stable - Patient will need outpatient FDG NM/PET, next-generation molecular testing, and follow-up with [facility] and local oncologist on discharge - Possible goals of care discussion pending clinical course. -ID, oncology, pulmonology recs appreciated - Wean O2 as tolerated to keep SpO2 greater than 92%. Currently on HFNC. Hx of LLE DVT Given context of systemic malignancy, acute respiratory distress and acute hypoxic respiratory failure associated with tachycardia, CTA ordered and PE has been ruled out. Reportedly had remote hx of DVT in left lower extremity. Currently not on Eliquis however, last dispensed 10/2024. - Lovenox for DVT PPx Assessment & Plan (04/25/2025 2:25 PM EDT): AHRF 2/2 bilateral pneumonia Concern for atypical pneumonia Concern for medication side effect Hx of severe persistent asthma Patient is a transfer from OSH for acute respiratory distress and hypoxemia, found to have bilateral pulmonary opacities on CXR, with increasing oxygen requirement requiring HFNC. Symptoms progressing with chills, cough, and generalized fatigue. Likely infectious in etiology, or possibly pneumonitis secondary to injection with Tremfya given symptoms started few days after. Possibly also CHF exacerbation however patient does not appear fluid overload, and possible asthma exacerbation as well. Less likely melanoma mets to lungs given acute presentation. - Wean O2 as tolerated to keep SpO2 greater than 92%. Currently on HFNC. - ID consulted, appreciate recs - Pulm consulted, appreciate recs - Continue IV antibiotics with Cefepime 2 g IV every 8, azithromycin 500 mg IV daily (pending legionella urine antigen), vancomycin pharmacy dosed (goal trough between 15-20) - CT chest, follow up - DuoNebs every 4 hour - Pulmicort twice daily - Solu-Medrol 40 mg IV every 8h - Continue home Singulair 10 mg nightly - Chest physiotherapy every 4 hours - Can consider spot dose lasix if fluid overload and worsening respiratory status - Follow fungal [id number] and aspergillus galactomannan antigen - Follow legionella antigen and cryptococcal antigen Concern for pulmonary embolism Hx of LLE DVT Given context of systemic malignancy, acute respiratory distress and acute hypoxic respiratory failure associated with tachycardia, cannot rule out pulmonary embolism. D-dimer added to lab 686 despite being nonspecific. Reportedly had remote hx of DVT in left lower extremity. Currently not on Eliquis however, last dispensed 10/2024. - Will obtain CTA chest to rule out PE, follow up - Lovenox for DVT PPx Assessment & Plan (04/24/2025 4:37 PM EDT): AHRF 2/2 bilateral pneumonia Concern for atypical pneumonia Concern for medication side effect Hx of severe persistent asthma Patient is a transfer from OSH for acute respiratory distress and hypoxemia, found to have bilateral pulmonary opacities on CXR, with increasing oxygen requirement requiring HFNC. Symptoms have been progressing and are associated with chills, cough, and generalized fatigue. Likely that this is in the setting of an infectious process. Given lack of fever and dry cough with no leukocytosis, less likely bacterial, cannot rule out atypical causes of pneumonia. Of note, patient reporting that symptoms started 1 day after injection with Tremfya, and so there is a concern for medication side effect and/or immunosuppressed environment. COVID panel, viral respiratory panel negative. Infection likely superimposed on severe asthma and further exacerbating symptoms. - Wean O2 as tolerated to keep SpO2 greater than 92%. Currently on HFNC 40 L, 80%. - Start IV broad-spectrum antibiotics: Cefepime 2 g IV every 8, azithromycin 500 mg IV daily, vancomycin pharmacy dosed - DuoNebs every 4 hour - Pulmicort twice daily - Solu-Medrol 40 mg IV every 8h - Continue home Singulair 10 mg nightly - Chest physiotherapy every 4 hours - If symptoms persist, consider pulmonology consult Concern for pulmonary embolism Hx of LLE DVT Given context of systemic malignancy, acute respiratory distress and acute hypoxic respiratory failure associated with tachycardia, cannot rule out pulmonary embolism. D-dimer added to lab 686 despite being nonspecific. Reportedly had remote hx of DVT in left lower extremity. Currently not on Eliquis however, last dispensed 10/2024. - Will obtain CTA chest to rule out PE - Lovenox for DVT PPx Anxiety and depression 04/24/2025 Assessment & Plan (04/29/2025 8:53 AM EDT): -Resume home Wellbutrin and Effexor Assessment & Plan (04/28/2025 10:46 AM EDT): -Resume home Wellbutrin and Effexor Assessment & Plan (04/27/2025 12:04 PM EDT): -Resume home Wellbutrin and Effexor Assessment & Plan (04/26/2025 2:13 PM EDT): -Resume home Wellbutrin and Effexor Assessment & Plan (04/25/2025 7:17 AM EDT): -Resume home Wellbutrin and Effexor Assessment & Plan (04/24/2025 4:11 PM EDT): -Resume home Wellbutrin and Effexor Essential tremor 04/24/2025 Assessment & Plan (04/29/2025 8:53 AM EDT): -Resume home primidone Assessment & Plan (04/28/2025 10:46 AM EDT): -Resume home primidone Assessment & Plan (04/27/2025 12:04 PM EDT): -Resume home primidone Assessment & Plan (04/26/2025 2:13 PM EDT): -Resume home primidone Assessment & Plan (04/25/2025 7:17 AM EDT): -Resume home primidone Assessment & Plan (04/24/2025 4:11 PM EDT): -Resume home primidone Restless leg syndrome 04/24/2025 Assessment & Plan (04/29/2025 8:53 AM EDT): Distal mononeuropathy - Resume home gabapentin 400 mg nightly and ropinirole 1 mg nightly Assessment & Plan (04/28/2025 10:46 AM EDT): Distal mononeuropathy - Resume home gabapentin 400 mg nightly and ropinirole 1 mg nightly Assessment & Plan (04/27/2025 12:04 PM EDT): Distal mononeuropathy - Resume home gabapentin 400 mg nightly and ropinirole 1 mg nightly Assessment & Plan (04/26/2025 2:13 PM EDT): Distal mononeuropathy - Resume home gabapentin 400 mg nightly and ropinirole 1 mg nightly Assessment & Plan (04/25/2025 4:32 PM EDT): Distal mononeuropathy - Resume home gabapentin 400 mg nightly and ropinirole 1 mg nightly Assessment & Plan (04/24/2025 4:11 PM EDT): Distal mononeuropathy - Resume home gabapentin 400 mg nightly and ropinirole 1 mg nightly Androgen deficiency 10/05/2024 Tyshawn level IV melanoma (CMS/HCC V24, CMS/HCC V2 8) 10/05/2024 Assessment & Plan (04/29/2025 8:53 AM EDT): Patient with history of stage IV adenocarcinoma with metastasis Comes to shoulder and right lower extremity. S/p 2 surgical resections. Has not been on any chemo/immuno/radiation therapy. Plans to continue to follow-up outpatient with oncology. Assessment & Plan (04/28/2025 10:46 AM EDT): Patient with history of stage IV adenocarcinoma with metastasis Comes to shoulder and right lower extremity. S/p 2 surgical resections. Has not been on any chemo/immuno/radiation therapy. Plans to continue to follow-up outpatient with oncology. Assessment & Plan (04/27/2025 12:04 PM EDT): Patient with history of stage IV adenocarcinoma with metastasis Comes to shoulder and right lower extremity. S/p 2 surgical resections. Has not been on any chemo/immuno/radiation therapy. Plans to continue to follow-up outpatient with oncology. Assessment & Plan (04/26/2025 2:13 PM EDT): Patient with history of stage IV adenocarcinoma with metastasis Comes to shoulder and right lower extremity. S/p 2 surgical resections. Has not been on any chemo/immuno/radiation therapy. Plans to continue to follow-up outpatient with oncology. Assessment & Plan (04/25/2025 7:17 AM EDT): Patient with history of stage IV adenocarcinoma with metastasis Comes to shoulder and right lower extremity. S/p 2 surgical resections. Has not been on any chemo/immuno/radiation therapy. Plans to continue to follow-up outpatient with oncology. Assessment & Plan (04/24/2025 4:05 PM EDT): Patient with history of stage IV adenocarcinoma with metastasis Comes to shoulder and right lower extremity. S/p 2 surgical resections. Has not been on any chemo/immuno/radiation therapy. Plans to continue to follow-up outpatient with oncology. Crohn's disease (CMS/HCC V24, CMS/HCC V28) 10/05 Assessment & Plan (04/29/2025 8:53 AM EDT): Follows with GI outpatient. Informs me that he was recently switched from Entyvio to Tremfya. He is status post 2 induction doses with Tremfya q. 28 days. Received second induction dose 1 day prior to onset of his symptoms. Concern for immunosuppressive environment exacerbating infectious process and weakening immune response. Assessment & Plan (04/28/2025 10:46 AM EDT): Follows with GI outpatient. Informs me that he was recently switched from Entyvio to Tremfya. He is status post 2 induction doses with Tremfya q. 28 days. Received second induction dose 1 day prior to onset of his symptoms. Concern for immunosuppressive environment exacerbating infectious process and weakening immune response. Assessment & Plan (04/27/2025 12:04 PM EDT): Follows with GI outpatient. Informs me that he was recently switched from Entyvio to Tremfya. He is status post 2 induction doses with Tremfya q. 28 days. Received second induction dose 1 day prior to onset of his symptoms. Concern for immunosuppressive environment exacerbating infectious process and weakening immune response. Assessment & Plan (04/26/2025 2:13 PM EDT): Follows with GI outpatient. Informs me that he was recently switched from Entyvio to Tremfya. He is status post 2 induction doses with Tremfya q. 28 days. Received second induction dose 1 day prior to onset of his symptoms. Concern for immunosuppressive environment exacerbating infectious process and weakening immune response. Assessment & Plan (04/25/2025 7:17 AM EDT): Follows with GI outpatient. Informs me that he was recently switched from Entyvio to Tremfya. He is status post 2 induction doses with Tremfya q. 28 days. Received second induction dose 1 day prior to onset of his symptoms. Concern for immunosuppressive environment exacerbating infectious process and weakening immune response. Assessment & Plan (04/24/2025 4:05 PM EDT): Follows with GI outpatient. Informs me that he was recently switched from Entyvio to Tremfya. He is status post 2 induction doses with Tremfya q. 28 days. Received second induction dose 1 day prior to onset of his symptoms. Concern for immunosuppressive environment exacerbating infectious process and weakening immune response. Lumbar stenosis with neurogenic claudication 10/2024 Osteoarthritis of multiple joints 10/05/2024 Severe persistent asthma ([facility] V28) Assessment & Plan (04/29/2025 8:53 AM EDT): As above Assessment & Plan (04/28/2025 10:46 AM EDT): As above Assessment & Plan (04/27/2025 12:04 PM EDT): As above Assessment & Plan (04/26/2025 2:13 PM EDT): As above Assessment & Plan (04/25/2025 7:17 AM EDT): As above Assessment & Plan (04/24/2025 4:05 PM EDT): As above HFrEF (heart failure with re duced ejection fraction) (CMS/[facility] V24, CMS/HCC V28) 07/22/2024 Assessment & Plan (04/29/2025 8:53 AM EDT): As above Assessment & Plan (04/28/2025 10:46 AM EDT): As above Assessment & Plan (04/27/2025 12:04 PM EDT): As above Assessment & Plan (04/26/2025 2:13 PM EDT): As above Assessment & Plan (04/25/2025 7:17 AM EDT): As above Assessment & Plan (04/24/2025 4:05 PM EDT): As above Assessment & Plan (10/12/2024 8:57 AM EST): [...] Basic metabolic panel; Future Basic metabolic panel CAD (coronary artery disease) 07/22/2024 Assessment & Plan (04/29/2025 8:53 AM EDT): CAD s/p PCI HFrEF (10/2024 EF 40-45%) HLD Last TTE 04/25/2025 moderately dilated left ventricle cavity with left ventricular systolic function mildly decreased with ejection fraction 40 to 45%, LV global hypokinesis, mildly enlarged right ventricle cavity with right ventricular systolic function normal, ascending aorta mildly dilated 4 cm, aortic root measuring 4.3 cm. Follows with cardiology and is on GDMT. Home regimen: Lasix 20 mg p.o. daily, Entresto 24-26 mg twice daily, Toprol XL 25 mg daily, Farxiga 10 mg daily Concern for acute CHF exacerbation leading to AHRF, however low suspicion given no sign of volume overload on exam and normal BNP on initial workup. - Hold home GDMT including Lasix, Entresto, Farxiga - Continue home Toprol 25 mg daily hemodynamically stable - Continue home ezetimibe 10 mg daily and niacin 5 mg twice daily - Continue home aspirin 81 mg daily - Lasix 20 mg IV bid Assessment & Plan (04/28/2025 10:46 AM EDT): Hx of CAD s/p PCI to mid LAD and angioplasty secondary to branch HFrEF (10/2024 EF 40-45%) HLD Last TTE 04/25/2025 moderately dilated left ventricle cavity with left ventricular systolic function mildly decreased with ejection fraction 40 to 45%, LV global hypokinesis, mildly enlarged right ventricle cavity with right ventricular systolic function normal, ascending aorta mildly dilated 4 cm, aortic root measuring 4.3 cm. Follows with cardiology and is on GDMT. Home regimen: Lasix 20 mg p.o. daily, Entresto 24-26 mg twice daily, Toprol XL 25 mg daily, Farxiga 10 mg daily Concern for acute CHF exacerbation leading to AHRF, however low suspicion given no sign of volume overload on exam and normal BNP on initial workup. -Hold home GDMT including Lasix, Entresto, Farxiga - Continue home Toprol 25 mg daily hemodynamically stable - Continue home ezetimibe 10 mg daily and niacin 5 mg twice daily - Continue home aspirin 81 mg daily - Lasix 20 mg IV bid Assessment & Plan (04/27/2025 12:04 PM EDT): Hx of CAD s/p PCI to mid LAD and angioplasty secondary to branch HFrEF (10/2024 EF 40-45%) HLD Last TTE 04/25/2025 moderately dilated left ventricle cavity with left ventricular systolic function mildly decreased with ejection fraction 40 to 45%, LV global hypokinesis, mildly enlarged right ventricle cavity with right ventricular systolic function normal, ascending aorta mildly dilated 4 cm, aortic root measuring 4.3 cm. Follows with cardiology and is on GDMT. Home regimen: Lasix 20 mg p.o. daily, Entresto 24-26 mg twice daily, Toprol XL 25 mg daily, Farxiga 10 mg daily Concern for acute CHF exacerbation leading to AHRF, however low suspicion given no sign of volume overload on exam and normal BNP on initial workup. -Hold home GDMT including Lasix, Entresto, Farxiga - Continue home Toprol 25 mg daily hemodynamically stable - Continue home ezetimibe 10 mg daily and niacin 5 mg twice daily - Continue home aspirin 81 mg daily - Lasix 20 mg IV bid Assessment & Plan (04/26/2025 2:13 PM EDT): Hx of CAD s/p PCI to mid LAD and angioplasty secondary to branch HFrEF (10/2024 EF 40-45%) HLD Last TTE 04/25/2025 moderately dilated left ventricle cavity with left ventricular systolic function mildly decreased with ejection fraction 40 to 45%, LV global hypokinesis, mildly enlarged right ventricle cavity with right ventricular systolic function normal, ascending aorta mildly dilated 4 cm, aortic root measuring 4.3 cm. Follows with cardiology and is on GDMT. Home regimen: Lasix 20 mg p.o. daily, Entresto 24-26 mg twice daily, Toprol XL 25 mg daily, Farxiga 10 mg daily Concern for acute CHF exacerbation leading to AHRF, however low suspicion given no sign of volume overload on exam and normal BNP on initial workup. -Hold home GDMT including Lasix, Entresto, Farxiga - Continue home Toprol 25 mg daily hemodynamically stable - Continue home ezetimibe 10 mg daily and niacin 5 mg twice daily - Continue home aspirin 81 mg daily - Lasix 20 mg IV bid Assessment & Plan (04/25/2025 2:25 PM EDT): Hx of CAD s/p PCI to mid LAD and angioplasty secondary to branch HFrEF (10/2024 EF 40-45%) HLD Last TTE 04/25/2025 moderately dilated left ventricle cavity with left ventricular systolic function mildly decreased with ejection fraction 40 to 45%, LV global hypokinesis, mildly enlarged right ventricle cavity with right ventricular systolic function normal, ascending aorta mildly dilated 4 cm, aortic root measuring 4.3 cm. Follows with cardiology and is on GDMT. Home regimen: Lasix 20 mg p.o. daily, Entresto 24-26 mg twice daily, Toprol XL 25 mg daily, Farxiga 10 mg daily Concern for acute CHF exacerbation leading to AHRF, however low suspicion given no sign of volume overload on exam and normal BNP on initial workup. -Hold home GDMT including Lasix, Entresto, Farxiga - Continue home Toprol 25 mg daily hemodynamically stable - Continue home ezetimibe 10 mg daily and niacin 5 mg twice daily - Continue home aspirin 81 mg daily - Can consider spot dose lasix if fluid overload and worsening respiratory status Assessment & Plan (04/24/2025 5:11 PM EDT): Hx of CAD s/p PCI to mid LAD and angioplasty secondary to branch HFrEF (10/2024 EF 40-45%) HLD Last TTE 12/2024 EF 40-45%, inferior and inferoseptal wall motion abnormality. LVH. RV enlarged. Mildly thickened aortic valve leaflets. LA enlarged. Follows with cardiology and is on GDMT. Home regimen: Lasix 20 mg p.o. daily, Entresto 24-26 mg twice daily, Toprol XL 25 mg daily, Farxiga 10 mg daily Low concern for acute CHF exacerbation leading to AHRF given no sign of volume overload on exam and normal BNP on initial workup. -Hold home GDMT including Lasix, Entresto, Farxiga - Continue home Toprol 25 mg daily hemodynamically stable - Continue home ezetimibe 10 mg daily and niacin 5 mg twice daily - Continue home aspirin 81 mg daily Assessment & Plan (10/12/2024 8:57 AM EST): [...] the perioperative period. Malignant melanoma of scalp ([facility] V24, [facility]/ C V28) 07/06/2024 Chronic kidney disease (CKD) stage G3a/A1, moderately decreased glomerular filtration rate (GFR) between 45-59 mL/min/1.73 square meter and albuminuria creatinine ratio les* ([facility] V24, [facility]/HCC V28) 11/30/2021 Assessment & Plan (04/29/2025 8:53 AM EDT): On presentation creatinine 1.3, BUN 21. eGFR 62. Seems to be at baseline. - Monitor via BMP daily Assessment & Plan (04/28/2025 10:46 AM EDT): On presentation creatinine 1.3, BUN 21. eGFR 62. Seems to be at baseline. - Monitor via BMP daily Assessment & Plan (04/27/2025 12:04 PM EDT): On presentation creatinine 1.3, BUN 21. eGFR 62. Seems to be at baseline. - Monitor via BMP daily Assessment & Plan (04/26/2025 2:13 PM EDT): On presentation creatinine 1.3, BUN 21. eGFR 62. Seems to be at baseline. - Monitor via BMP daily Assessment & Plan (04/25/2025 7:17 AM EDT): On presentation creatinine 1.3, BUN 21. eGFR 62. Seems to be at baseline. - Monitor via BMP daily Assessment & Plan (04/24/2025 4:05 PM EDT): On presentation creatinine 1.3, BUN 21. eGFR 62. Seems to be at baseline. - Monitor via BMP daily NATALIYA on CPAP 09/13/2021 Overview (10/05/2024): Last [...] his bed is elevated. Acquired hypothyroidism 06/24/2019 Assessment & Plan (04/29/2025 8:53 AM EDT): -Continue home pork thyroid 15 mg x 5 (75 mg total) daily Assessment & Plan (04/28/2025 10:46 AM EDT): -Continue home pork thyroid 15 mg x 5 (75 mg total) daily Assessment & Plan (04/27/2025 12:04 PM EDT): -Continue home pork thyroid 15 mg x 5 (75 mg total) daily Assessment & Plan (04/26/2025 2:13 PM EDT): -Continue home pork thyroid 15 mg x 5 (75 mg total) daily Assessment & Plan (04/25/2025 7:17 AM EDT): -Continue home pork thyroid 15 mg x 5 (75 mg total) daily Assessment & Plan (04/24/2025 4:05 PM EDT): -Continue home pork thyroid 15 mg x 5 (75 mg total) daily BPH with urinary obstruction 06/24/2019 Assessment & Plan (04/29/2025 8:53 AM EDT): Follows with urology outpatient. Plan for laser directed prostate therapy therapy. On Gemtesa 75 mg nightly at home. - Continue as nonformulary while inpatient Assessment & Plan (04/28/2025 10:46 AM EDT): Follows with urology outpatient. Plan for laser directed prostate therapy therapy. On Gemtesa 75 mg nightly at home. - Continue as nonformulary while inpatient Assessment & Plan (04/27/2025 12:04 PM EDT): Follows with urology outpatient. Plan for laser directed prostate therapy therapy. On Gemtesa 75 mg nightly at home. - Continue as nonformulary while inpatient Assessment & Plan (04/26/2025 2:13 PM EDT): Follows with urology outpatient. Plan for laser directed prostate therapy therapy. On Gemtesa 75 mg nightly at home. - Continue as nonformulary while inpatient Assessment & Plan (04/25/2025 7:17 AM EDT): Follows with urology outpatient. Plan for laser directed prostate therapy therapy. On Gemtesa 75 mg nightly at home. - Continue as nonformulary while inpatient Assessment & Plan (04/24/2025 4:05 PM EDT): Follows with urology outpatient. Plan for laser directed prostate therapy therapy. On Gemtesa 75 mg nightly at home. - Continue as nonformulary while inpatient Crohn's disease of colon ([facility] V24, [facility] V 28) 06/24/2019 Migraine headache 06/24/2019 Assessment & Plan (04/29/2025 8:53 AM EDT): -Resume home sumatriptan as needed Assessment & Plan (04/28/2025 10:46 AM EDT): -Resume home sumatriptan as needed Assessment & Plan (04/27/2025 12:04 PM EDT): -Resume home sumatriptan as needed Assessment & Plan (04/26/2025 2:13 PM EDT): -Resume home sumatriptan as needed Assessment & Plan (04/25/2025 7:17 AM EDT): -Resume home sumatriptan as needed Assessment & Plan (04/24/2025 4:11 PM EDT): -Resume home sumatriptan as needed Moderate asthma 06/24/2019 Osteoarthritis of acromioclavicular joint 2018 Temporomandibular joint disorder 05/03/2017 Overview (10/05/2024): Other specified disorders of temporomandibular joint; Note: Date Diagnosed: 05/03/2017 3:07 PM (M26.69) Resolved Problems Problem Noted Date Diagnosed Date Resolved Date Dilated idiopathic cardiomyo gayle ([facility] V24, [facility] V28) 10/05/2024 10/12/2024 Dilated cardiomyopathy ([facility]/ [facility] V24, [facility] V28) 07/22/2024 10/12/2024 Status post insertion of elie g-eluting stent into left anterior descending (LAD) artery 05/27/2023 10/12/2024 Superficial thrombosis of lower extremity 05/20/2023 10/12/2024 Overview (10/05/2024): Placed on Xarelto due to extensive clot burden and close proximity to the common femoral vein. Encounters Date Type Department Care Team Description 04/24/2025 11:08 AM EDT - 04/29/2025 11:40 AM EDT Hospital Encounter [facility] [address] [place] [address] Milagros Pedro MD Sekhon, MD Nery Pierce Rachna, MD Jacob, Dean Samson MD Acute respiratory failure with hypoxia ([facility] V24, [facility] V28) (Primary Dx); Pneumonia of both lungs due to infectious organism, unspecified part of lung Discharge Disposition: Left Against Medical Advice 04/24/2025 5:46 AM EDT - 04/24/2025 10:13 AM EDT Emergency [facility] Emergency [address] [place] [address] Jennifer Cotto MD Fisher, Geoffrey, Pneumonia of both lungs due to infectious organism, unspecified part of lung (Primary Dx); Hypoxia; Sepsis, due to unspecified organism, unspecified whether acute organ dysfunction present ([facility] V24, [facility] V28); Aspiration pneumonia of both lungs, unspecified aspiration pneumonia type, unspecified part of lung ([facility] V24, [facility] V28); Acute on chronic congestive heart failure, unspecified heart failure type ([facility] V24, [facility] V28) Discharge Disposition: Short Term Hospital from Last 3 Months Immunizations Name Administration Dates Next Due Moderna SARS-CoV-2 COVID-19, mRNA, LNP-S, preservative free 12/11/2020,11/13/2020 Surgical History Surgery Date Site/Laterality Comments COLONOSCOPY 07/14/2020 PROCEDURE: HISTORICAL COLONOSCOPY; COMMENT: AND BIOPSY OF COLON OTHER SURGICAL HISTORY 07/14/2020 PROCEDURE: RI ECHO TRANSTHORAC R-T 2D W/WO M-MODE REC COMP; COMMENT: ABNORMAL OTHER SURGICAL HISTORY 04/13/2020 PROCEDURE: HISTORY OTHER; COMMENT: Melanoma excised scalp/sentinel node left neck OTHER SURGICAL HISTORY 07/01/2019 PROCEDURE: HISTORY OTHER; COMMENT: Reconstruction triceps tendon with Achilles tendon allograft left elbow OTHER SURGICAL HISTORY 08/19/2017 PROCEDURE: HISTORY OTHER; COMMENT: Repair of quadriceps tendon OTHER SURGICAL HISTORY 08/19/2017 PROCEDURE: RI RPR 1 TORN LIGM&/CAPSL KNE COLTRL&CRUCIATE OTHER SURGICAL HISTORY 09/29/2015 Left PROCEDURE: ARTHROSCOPY SHOULDER SURGI TOTAL KNEE ARTHROPLASTY 06/07/2015 Right PROCEDURE: RI ARTHRP KNE CONDYLE&PLATU MEDIAL&LAT COMPARTMENTS OTHER SURGICAL [...] KNEE SURGERY ANKLE FRACTURE SURGERY Bilateral PROCEDURE: RI OPEN TREATMENT MEDIAL MALLEOLUS FRACTURE OTHER SURGICAL HISTORY 06/19/2021 PROCEDURE: RI ECHO TRANSTHORAC R-T 2D W/WO M-MODE REC COMP OTHER SURGICAL HISTORY 07/01/2019 Left PROCEDURE: HISTORICAL ARM SURGERY; COMMENT: Reconstruction triceps tendon with Achilles tendon allograft left elbow LEG SURGERY 08/19/2017 PROCEDURE: HISTORICAL LEG SURGERY; COMMENT: Repair of quadriceps tendon KNEE ARTHROSCOPY W/ MENISCAL REPAIR 08/14/2013 Right PROCEDURE: RI ARTHROSCOPY KNEE W/MENISCUS RPR MEDIAL/LATERAL; COMMENT: partial medial meniscectomy FINGER SURGERY Left thumb, trapeziectomy w/ interpositional arthroplasty; done by Dr Roberts at [facility] Medical History Medical History Date Comments Anxiety disorder DX:Anxiety diso rder Asthma, severe persistent (CMS/HCC V28) DX:Asthma, severe persistent BPH with obstruction/lower u rinary tract symptoms DX:BPH with obstruction/lowe r urinary tract symptoms Chronic kidney disease (CKD) stage G3a/A1, moderately decreased glomerular filtration rate (GFR) between 45-59 mL/min/1.73 square meter and albuminuria creatinine ratio les* (CMS/HCC V24, CMS/HCC V28) DX:Chronic kidney disease (C KD) stage G3a/A1, moderately decreased glomerular filtration rate (GFR) between 45-59 mL/min/1.73 square meter and albuminuria creatinine ratio less than 30 mg/g (HCC) Tyshawn level IV melanoma (CMS /HCC V24, CMS/HCC V28) DX:Tyshawn level IV melanoma ( HCC) Crohn's disease (CMS/HCC V24 , CMS/HCC V28) DX:Crohn's disease (HCC) Depression DX:Depression DVT, lower extremity, recurr ent, left (CMS/HCC V24, CMS/HCC V28) DX:DVT, lower extremity, re current, left ([facility]); COMMENT: happened after he struck his leg Erectile dysfunction DX:Erectile dysfunction Essential tremor DX:Essential tr emor Gynecomastia DX:Gynecomastia Hyperlipidemia DX:Hyperlipidemi a Hypogonadotropic hypogonadis m ([facility] V24) DX:Hypogonadotropic hypogona dism ([facility]) Left leg DVT (CMS/HCC V24, CMS/HCC V28) DX:Left leg DVT ([facility]); COMMENT: POST-OP, peroneal and posterior Malignant melanoma of scalp (CMS/HCC V24, CMS/[facility] V28) DX:Malignant melanoma of sca lp ([facility]) Migraine headache DX:Migraine he adache NATALIYA on CPAP DX:NATALIYA on CPAP; COMMENT: Mild severity on home sleep study Partial tear of left Achilles tendon DX:Partial tear of left Achilles tendon Peripheral neuropathy DX:Periphe ral neuropathy; COMMENT: -likely versus myopathy Pernio DX:Pernio; COMME NT: ( development of cold induced erythrocyanotic skin lesions) Rheumatoid arthritis (CMS/ C V24, CMS/HCC V28) DX:Rheumatoid arthritis ([facility] ) Right brachial plexitis DX:Right brachial plexitis Seizure disorder (CMS/HCC V2 4, CMS/[facility] V28) DX:Seizure disorder ([facility]); C OMMENT: quiescent Transaminitis DX:Transaminitis ; COMMENT: CHRONIC Hypothyroidism DX:Hypothyroidis m; COMMENT: ON ARMOUR THYROID Acute hypoxemic respiratory failure (CMS/HCC V24, CMS/[facility] V28) DX:Acute hypoxemic respirat ory failure ([facility]); COMMENT: D/C'd @ [facility] ON 08/22/21 CAP (community acquired pneumonia) DX:CAP (community acquired pneumonia); COMMENT: D/C'd @ [facility] ON 08/22/21 Crohn's disease (CMS/HCC V24 , CMS/HCC V28) DX:Crohn's disease (HCC) Family History Medical History Relation [...] Orientation Straight 04/24/2025 11 :38 AM EDT Obstetrics History Last Filed Vital Signs Vital Sign Reading Time Taken Comments Blood Pressure 158/93 04/28/2025 11:00 PM EDT Pulse 67 04/29/2025 8:00 AM EDT Temperature 36.5 C (97.7 F) 04/29/2025 11:00 AM EDT Respiratory Rate 26 04/29/2025 8:00 AM EDT Oxygen Saturation 94% 04/29/2025 8:00 AM EDT Inhaled Oxygen Concentration - - Weight 91.6 kg (202 lb) 04/24/2025 6:24 AM EDT Height 185.4 cm (6' 1 ) 04/24/2025 6:24 AM EDT Body Mass Index 26.65 04/24/2025 6:24 AM EDT Plan of Treatment Upcoming Encounters Date Type Department Care Team (Late st Contact Info) Description 07/06/2025 10:50 AM EST Office Visit [facility] [address] [place] [id number] Hari Emanuel MD [address] [place] [address] [address] [place] [address] Health Maintenance Due Date Last Done Comments Pneumococcal Vaccine: 50+ Years (2 of 2 - PCV) 12/26/2019 12/25/2018 HIV Screening 08/01/2022 Hepatitis C Screening 08/01/2022 Social Influencers of Health Screening 08/01/2022 Medicare Annual Wellness Visit 05/23/2024 05/23/2023 Depression Screening 09/02/2024 COVID-19 Vaccine ( season) 2025 06/02/2023, 06/18/2022, 07/25/2021, Additional history exists Influenza Vaccine (#1) 2025 Hypertension/CHF/CAD Annual BMP Blood Test 04/28/2026 04/28/2025, 04/27/2025, 04/26/2025, Additional history exists Cholesterol Screening (Lipid Panel) 08/10/2029 08/10/2024 DTaP,Tdap,and Td Vaccines (2 - Td or Tdap) 11/25/2029 11/26/2019 Colorectal Cancer Screening: Colonoscopy 12/03/2034 12/03/2024, 12/03/2024 Zoster Vaccines Completed 08/11/2020, 06/07/2020 RSV Immunization Adult Patients Completed 06/02/2023 HIB Vaccines Aged Out No [...] age to complete this topic Meningococcal B Vaccine Aged Out No l onger eligible based on patient's age to complete this topic RSV Immunization Patients Under 20 months Aged Out No longer eligible based on patient's age to complete this topic Varicella Vaccines Aged Out No longer eligible based on patient's age to complete this topic Medical Devices Implanted Type Area Blasting Contract Man Device Identifier Shelf Expiration Date Model / Serial / Lot Graft 16cm-19.4cmx 10-20mm Tt Frzn Achana Tndn Specs [facility] - [id number] - [id number] Implanted:Qt y: 1 on 07/01/2019 by Jett Rodriguez MD Left: Elbow [employer]LETAL [employer]ANSPL[employer]ND 01/31/2024 [id number] / [id number] / [employer] Suture Q-Fix Od2.8 Mm - [id number] Implanted:Qt y: 1 on 07/01/2019 by Jett Rodriguez MD Left: Elbow [employer] 02/09/2022 25-2800 / / [id number] Dodge Sut 5.5mm Fullthrd Med Insite Preld Fr Fbr Sprt Peek - [id number] Implanted:Qt y: 2 on 02/03/2020 by Chase Ramirez MD Right: Shoulder [employer] 02/17/2022 [id number] / / [id number] Solidback Acetabular Shell 56f Stry-Howm [id number] Implanted:Qt y: 1 on 09/05/2021 by Chris Hairston MD Right: Hip [employer] [id number] 05/03/2024 700-04-56F / / [id number] Hip Insrt Poly X3 10deg 36mm Stry-Howm [id number]-[id number] Implanted:Qt y: 1 on 09/05/2021 by Chris Hairston MD Right: Hip [employer] [id number] 06/27/2024 623-10-36F / / [id number] Hip Stm Tzf Lopes #[address] Stry-Howm [id number] Implanted:Qt y: 1 on 09/05/2021 by Chris Hairston MD Right: Hip [employer] [id number] 12/05/2025 [id number] / / [id number] Hip Head Delta Tiffanie 36mm +7.5 Stry-Howm [id number] Implanted:Qt y: 1 on 09/05/2021 by Chris Hairston MD Right: Hip [employer] [id number] 04/05/2026 6570-0-736 / / [id number] Procedures Procedure Name Priority Date/Time Associated Diagnosis Comments VANCOMYCIN, TROUGH Timed 04/28/2025 5: 37 PM EDT OXYGEN THERAPY, ADULT Routine 04/28/2025 2:28 PM EDT OXYGEN THERAPY, ADULT Routine 04/28/2025 2:28 PM EDT MAGNESIUM Timed 04/28/2025 6:30 AM EDT COMPREHENSIVE METABOLIC PANEL Timed 04/28/2025 6:30 AM EDT COMPLETE BLOOD COUNT Timed 04/28/2025 6:30 AM EDT OXYGEN THERAPY, ADULT Routine 04/27/2025 6:19 PM EDT VANCOMYCIN, TROUGH Timed 04/27/2025 8: 03 AM EDT MAGNESIUM Timed 04/27/2025 8:03 AM EDT COMPREHENSIVE METABOLIC PANEL Timed 04/27/2025 8:03 AM EDT COMPLETE BLOOD COUNT Timed 04/27/2025 8:03 AM EDT CULTURE RESPIRATORY WITH GRAM STAIN Routine 04/27/2025 2:36 AM EDT OXYGEN THERAPY, ADULT Routine 04/26/2025 8:02 AM EDT LACTATE DEHYDROGENASE Add-On 04/26/2025 6:42 AM EDT PHOSPHORUS Routine 04/26/2025 6:42 AM EDT CRYPTOCOCCAL ANTIGEN Routine 04/26/2025 6:42 AM EDT VANCOMYCIN, TROUGH Timed 04/26/2025 6: 42 AM EDT MAGNESIUM Timed 04/26/2025 6:42 AM EDT COMPREHENSIVE METABOLIC PANEL Timed 04/26/2025 6:42 AM EDT COMPLETE BLOOD COUNT Timed 04/26/2025 6:42 AM EDT OXYGEN THERAPY, ADULT Routine 04/26/2025 5:52 AM EDT XR CHEST 1 VIEW STAT 04/26/2025 2:09 AM EDT XR ABDOMEN 1 VIEW STAT 04/26/2025 2:0 9 AM EDT TROPONIN I HIGH SENSITIVITY STAT 04/26/2025 1:28 AM EDT COMPLETE BLOOD COUNT Routine 04/26/2025 1:28 AM EDT LACTATE, WITH REFLEX Routine 04/26/2025 1:28 AM EDT COMPREHENSIVE METABOLIC PANEL Routine 04/26/2025 1:28 AM EDT ECG 12-LEAD STAT 04/26/2025 1:04 AM EDT LEGIONELLA ANTIGEN URINE, EIA Routine 04/25/2025 5:[address] ABDOMEN PELVIS W CONTRAST Routine 04/25/2025 3:[address] ANGIO CHEST WO AND/OR W CONTRAST Routine 04/25/2025 3:32 PM EDT Acute respiratory failure with hypoxia (CMS/HCC V24, CMS/HCC V28) Pneumonia of both lungs due to infectious organism, unspecified part of lung TRANSTHORACIC ECHOCARDIOGRAM (TTE) COMPLETE W/ CONTRAST Today 04/25/2025 12:04 PM EDT Acute respiratory failure with hypoxia (CMS/HCC V24, CMS/HCC V28) ASPERGILLUS GALACTOMANNAN ANTIGEN Routine 04/25/2025 8:02 AM EDT FUNGAL [id number] WITH REFLEX TO TITER Routine 04/25/2025 8:02 AM EDT COMPREHENSIVE METABOLIC PANEL Routine 04/25/2025 8:02 AM EDT VENOUS BLOOD GAS Routine 04/25/2025 8:02 AM EDT MAGNESIUM Routine 04/25/2025 8:02 AM EDT COMPLETE BLOOD COUNT Routine 04/25/2025 8:02 AM EDT XR CHEST 1 VIEW STAT 04/25/2025 4:31 AM EDT OXYGEN THERAPY, ADULT Routine 04/25/2025 2:38 AM EDT MRSA PCR Routine 04/25/2025 12:25 AM EDT OXYGEN THERAPY, ADULT Routine 04/24/2025 4:29 PM EDT PROCALCITONIN Add-On 04/24/2025 11:49 AM EDT HEPATIC FUNCTION PANEL Add-On 11:49 AM EDT CBC WITH AUTO DIFFERENTIAL STAT 04/24/2025 11:49 AM EDT LACTATE, WITH REFLEX STAT 04/24/2025 11:49 AM EDT CBC AND DIFFERENTIAL STAT 04/24/2025 11:49 AM EDT BASIC METABOLIC PANEL STAT 04/24/2025 11:49 AM EDT RESPIRATORY VIRUS PANEL MOLECULAR STUDY STAT 04/24/2025 11:42 AM EDT URINALYSIS WITH REFLEX MICROSCOPIC AND CULTURE STAT 04/24/2025 10:21 AM EDT URINALYSIS WITH REFLEX MICROSCOPIC AND CULTURE STAT 04/24/2025 10:21 AM EDT LACTATE, WITH REFLEX Timed 04/24/2025 8:16 AM EDT ARTERIAL BLOOD GAS STAT 04/24/2025 6: 15 AM EDT CULTURE BLOOD STAT 04/24/2025 6:05 AM EDT XR CHEST 1 VIEW STAT 04/24/2025 6:04 AM EDT CULTURE BLOOD STAT 04/24/2025 6:04 AM EDT [id number], RSV, FLU A AND B QUALITATIVE RT-PCR, INTERNAL LAB STAT 04/24/2025 6:03 AM EDT D-DIMER Add-On 04/24/2025 6:01 AM EDT GREEN YELLOW PST Routine 04/24/2025 6:01 AM EDT LT BLUE - NA CITRATE Routine 04/24/2025 6:01 AM EDT EXTRA TUBES Routine 04/24/2025 6:01 AM EDT CBC WITH AUTO DIFFERENTIAL STAT 04/24/2025 6:01 AM EDT LACTATE, WITH REFLEX STAT 04/24/2025 6:01 AM EDT B-TYPE NATRIURETIC PEPTIDE STAT 04/24/2025 6:01 AM EDT TROPONIN I HIGH SENSITIVITY STAT 04/24/2025 6:01 AM EDT MAGNESIUM STAT 04/24/2025 6:01 AM EDT COMPREHENSIVE METABOLIC PANEL STAT 04/24/2025 6:01 AM EDT CBC AND DIFFERENTIAL STAT 04/24/2025 6:01 AM EDT ECG 12-LEAD Routine 04/24/2025 5:55 AM EDT LIPID PANEL Routine 08/10/2024 9:36 AM EST Mixed hyperlipidemia from Last 3 Months or Most Recently Relevant to Health Maintenance Results * Vancomycin, trough (04/28/2025 5:37 PM EDT) Only the most recent of3 resultswithin the time period is included. Pathologist [facility] Vancomycin Trough 16.1 10.0 - 20.0 mcg/mL LAB CHEMISTRY METHOD 04/28/2025 6:48 PM EDT [facility] Blood Venous blood specimen / Unknown Venipuncture / Unknown 04/28/2025 5:37 PM EDT 04/28/2025 6:23 PM EDT us Galina Govea MD LAB BLOOD ORDERABLES Final Resul t [facility] [address] [place] [address], [place] [phone] * (ABNORMAL) Complete blood count (04/28/2025 6:30 AM EDT) Only the most recent of5 resultswithin the time period is included. [facility] WBC 9.1 4.0 - 10.5 K/mcL LAB HEMETOLOGY METHOD 04/28/2025 7:06 AM EDT [facility] RBC 4.71 4.70 - 6.00 M/mcL LAB HEMETOLOGY METHOD 04/28/2025 7:06 AM EDT [facility] Hemoglobin 12.7(L) 13.5 - 18.0 g/dL LAB HEMETOLOGY METHOD 04/28/2025 7:06 AM EDT [facility] Hematocrit 39.7(L) 40.0 - 54.0 % LAB HEMETOLOGY METHOD 04/28/2025 7:06 AM EDT [facility] MCV 84.2 78.0 - 100.0 FL LAB HEMETOLOGY METHOD 04/28/2025 7:06 AM EDT [facility] MCH 26.9 25.0 - 33.0 pcg LAB HEMETOLOGY METHOD 04/28/2025 7:06 AM EDT [facility] MCHC 32.0 32.0 - 36.0 g/dL LAB HEMETOLOGY METHOD 04/28/2025 7:06 AM EDT [facility] RDW 15.3 12.1 - 17.7 % LAB HEMETOLOGY METHOD 04/28/2025 7:06 AM EDT [facility] Platelets 362 150 - 450 K/mcL LAB HEMETOLOGY METHOD 04/28/2025 7:06 AM EDT [facility] MPV 7.4 7.4 - 11.4 FL LAB HEMETOLOGY METHOD 04/28/2025 7:06 AM EDT [facility] Blood Venous blood specimen / Unknown Venipuncture / Unknown 04/28/2025 6:30 AM EDT 04/28/2025 6:57 AM EDT us Petrona Gabriel MD LAB BLOOD ORDERABLES Final Resu lt [facility] [address] [place] [address], [place] [phone] * Magnesium (04/28/2025 6:30 AM EDT) Only the most recent of5 resultswithin the time period is included. Magnesium 2.1 1.7 - 2.8 mg/dL LAB CHEMISTRY METHOD 04/28/2025 7:31 AM EDT [facility] Blood Venous blood specimen / Unknown Venipuncture / Unknown 04/28/2025 6:30 AM EDT 04/28/2025 6:57 AM EDT us Petrona Gabriel MD LAB BLOOD ORDERABLES Final Resu lt [facility] [address] [place] [address], [place] [phone] * (ABNORMAL) Comprehensive metabolic panel (04/28/2025 6:30 AM EDT) Only the most recent of6 resultswithin the time period is included. Sodium 139 135 - 145 mmol/L LAB CHEMISTRY METHOD 04/28/2025 7:31 AM EDT [facility] Potassium 4.5 3.5 - 5.1 mmol/L LAB CHEMISTRY METHOD 04/28/2025 7:31 AM EDT [facility] Chloride 98 98 - 107 mmol/L LAB CHEMISTRY METHOD 04/28/2025 7:31 AM EDT [facility] CO2 31 24 - 32 mmol/L LAB CHEMISTRY METHOD 04/28/2025 7:31 AM EDT [facility] Anion Gap 10 5 - 14 LAB CHEMISTRY METHOD 04/28/2025 7:31 AM EDT [facility] Glucose 115 70 - 199 mg/dL LAB CHEMISTRY METHOD 04/28/2025 7:31 AM EDT [facility] BUN 36(H) 9 - 20 mg/dL LAB CHEMISTRY METHOD 04/28/2025 7:31 AM EDT [facility] Creatinine 1.10 0.70 - 1.30 mg/dL LAB CHEMISTRY METHOD 04/28/2025 7:31 AM EDT [facility] eGFR 75 >=60 mL/min/1. 73m2 LAB CHEMISTRY METHOD 04/28/2025 7:31 AM EDT [facility] Comment:Calculation based on the Chronic Kidney Disease Epidemiology Collaboration (CKD-EPI) equation refit without adjustment for race. BUN/Creatinine Ratio 32.7(H) 12.0 - 20.0 LAB CHEMISTRY METHOD 04/28/2025 7:31 AM EDT [facility] Calcium 8.4 8.4 - 10.2 mg/dL LAB CHEMISTRY METHOD 04/28/2025 7:31 AM EDT [facility] AST (SGOT) 18 5 - 40 unit/L LAB CHEMISTRY METHOD 04/28/2025 7:31 AM EDT [facility] ALT (SGPT) 32 7 - 52 unit/L LAB CHEMISTRY METHOD 04/28/2025 7:31 AM EDT [facility] Alkaline Phosphatase 43 34 - 104 unit/L LAB CHEMISTRY METHOD 04/28/2025 7:31 AM EDT [facility] Total Protein 6.1(L) 6.4 - 8.5 g/dL LAB CHEMISTRY METHOD 04/28/2025 7:31 AM EDT [facility] Albumin 3.4(L) 3.5 - 5.0 g/dL LAB CHEMISTRY METHOD 04/28/2025 7:31 AM EDT [facility] Total Bilirubin 0.4 0.3 - 1.0 mg/dL LAB CHEMISTRY METHOD 04/28/2025 7:31 AM EDT [facility] Blood Venous blood specimen / Unknown Venipuncture / Unknown 04/28/2025 6:30 AM EDT 04/28/2025 6:57 AM EDT us Petrona Gabriel MD LAB BLOOD ORDERABLES Final Resu lt [facility] [address] [place] [address], [place] [phone] * (ABNORMAL) Culture respiratory with gram stain (04/27/2025 2:36 AM EDT) Culture, Respiratory Culture not indicated based on gram stain result. 04/27/2025 3:09 AM EDT [facility] Gram Stain Result Inadequate specimen, greater than or equal to 25 squamous epithelial cells per low power field. CULTURE NOT PERFORMED, PLEASE RECOLLECT IF CLINICALLY INDICATED(A) 04/27/2025 3:09 AM EDT [facility] Gram Stain Result Many WBCs present(A) 04/27/2025 3:09 AM EDT [facility] Gram Stain Result Many Epithelial cells(A) 04/27/2025 3:09 AM EDT [facility] Gram Stain Result Many Gram positive cocci(A) 04/27/2025 3:09 AM EDT [facility] Gram Stain Result Moderate Gram negative bacilli(A) 04/27/2025 3:09 AM EDT [facility] Sputum, expectorated Oropharyngeal structure / Unknown 04/27/2025 2:36 AM EDT 04/27/2025 2:39 AM EDT Augustine Arredondo MD LAB MICROBIOLOGY - GENERA L ORDERABLES Final Result Performing Organization Address City/[facility]/ZIP Co de Phone Number [facility] [address] [place] [id number], * Cryptococcal antigen (04/26/2025 6:42 AM EDT) Crypto Ag Nonreactive Nonreactive 04/28/2025 1:09 PM EDT [facility] Blood Venous blood specimen / Unknown Venipuncture / Unknown 04/26/2025 6:42 AM EDT 04/26/2025 7:32 AM EDT Galina Govea MD LAB BLOOD ORDERABLES Final Resul t [facility] [address] [place] [id number], * Phosphorus (04/26/2025 6:42 AM EDT) Phosphorus 3.2 2.5 - 4.5 mg/dL LAB CHEMISTRY METHOD 04/26/2025 8:20 AM EDT [facility] Blood Venous blood specimen / Unknown Venipuncture / Unknown 04/26/2025 6:42 AM EDT 04/26/2025 7:32 AM EDT us Petrona Gabriel MD LAB BLOOD ORDERABLES Final Resu lt Performing Organization Address City/[facility]/ZIP Co de Phone Number [facility] [address] [place] [address], * (ABNORMAL) Lactate dehydrogenase (04/26/2025 6:42 AM EDT) LDH 323(H) 125 - 220 unit/L LAB CHEMISTRY METHOD 04/26/2025 2:25 PM EDT [facility] Blood Venous blood specimen / Unknown Venipuncture / Unknown 04/26/2025 6:42 AM EDT 04/26/2025 7:32 AM EDT us Petrona Gabriel MD LAB BLOOD ORDERABLES Final Resu lt Performing Organization Address [facility] Co de Phone Number [facility] [address] [place] [address], * XR Chest 1 View (04/26/2025 2:09 AM EDT) Only the most recent of3 resultswithin the time period is included. Anatomical Region Laterality Modality Body Radiographic Noemi ging 04/26/2025 3:44 AM EDT Impressions 04/26/2025 3:45 AM EDT FINDINGS/IMPRESSION: Slight decrease in bilateral lung opacities. Stable heart. -------- FINAL REPORT -------- Dictated By: Gui Blevins Dictated Date: 04/26/2025 03:44 ET Assigned Physician: Gui Blevins Reviewed and Electronically Signed By: Gui Blevins Signed Date: 04/26/2025 03:45 ET Workstation ID: [id number] Transcribed By: Self Edit Transcribed Date: 04/26/2025 03:44 ET Narrative 04/26/2025 3:45 AM EDT XR CHEST 1 VIEW HISTORY:64 years Male shortness of breath COMPARISON:04/25/2025 Procedure Note Gui Blevins MD - 04/26/2025 XR CHEST 1 VIEW HISTORY:64 years Male shortness of breath COMPARISON:04/25/2025 IMPRESSION: FINDINGS/IMPRESSION: Slight decrease in bilateral lung opacities. Stable heart. -------- FINAL REPORT -------- Dictated By: Gui Blevins Dictated Date: 04/26/2025 03:44 ET Assigned Physician: Gui Blevins Reviewed and Electronically Signed By: Gui Blevins Signed Date: 04/26/2025 03:45 ET Workstation ID: [id number] Transcribed By: Self Edit Transcribed Date: 04/26/2025 03:44 ET Petrona Gabriel MD IMG XR PROCEDURES Final Result * XR Abdomen 1 View (04/26/2025 2:09 AM EDT) Anatomical Region Laterality Modality Body Radiographic Noemi ging 04/26/2025 3:35 AM EDT Impressions 04/26/2025 3:44 AM EDT FINDINGS/IMPRESSION: Nonspecific bowel gas pattern. No obvious free air. -------- FINAL REPORT -------- Dictated By: Gui Blevins Dictated Date: 04/26/2025 03:35 ET Assigned Physician: Gui Blevins Reviewed and Electronically Signed By: Gui Blevins Signed Date: 04/26/2025 03:44 ET Workstation ID: [id number] Transcribed By: Self Edit Transcribed Date: 04/26/2025 03:35 ET Narrative 04/26/2025 3:44 AM EDT XR ABDOMEN 1 VIEW HISTORY:64 years Male abdominal pain COMPARISON:None Procedure Note Gui Blevins MD - 04/26/2025 XR ABDOMEN 1 VIEW HISTORY:64 years Male abdominal pain COMPARISON:None IMPRESSION: FINDINGS/IMPRESSION: Nonspecific bowel gas pattern. No obvious free air. -------- FINAL REPORT -------- Dictated By: Gui Blevins Dictated Date: 04/26/2025 03:35 ET Assigned Physician: Gui Blevins Reviewed and Electronically Signed By: Gui Blevins Signed Date: 04/26/2025 03:44 ET Workstation ID: [id number] Transcribed By: Self Edit Transcribed Date: 04/26/2025 03:35 ET us Petrona Gabriel MD IMG XR PROCEDURES Final Result * Lactate, with reflex (04/26/2025 1:28 AM EDT) Only the most recent of4 resultswithin the time period is included. Pathologist [facility] LACTIC ACID 1.5 0.5 - 2.2 mmol/L LAB BLOOD GAS METHOD 04/26/2025 1:45 AM EDT [facility] Blood Venous blood specimen / Unknown Venipuncture / Unknown 04/26/2025 1:28 AM EDT 04/26/2025 1:40 AM EDT us Petrona Gabriel MD LAB BLOOD ORDERABLES Final Resu lt [facility] [address] [place] [address], [place] [phone] * Troponin I high sensitivity (04/26/2025 1:28 AM EDT) Only the most recent of2 resultswithin the time period is included. Pathologist [facility] High Sensitivity Troponin I 8 0 - 20 ng/L LAB CHEMISTRY METHOD 04/26/2025 2:59 AM EDT [facility] Blood Venous blood specimen / Unknown Venipuncture / Unknown 04/26/2025 1:28 AM EDT 04/26/2025 1:41 AM EDT Narrative [facility] - 04/26/2025 2:59 AM EDT HSTnI results stratify to HIGH RISK category if any value >100 ng/L or delta at 1 hour is greater than or equal to 15 ng/L (male and female). Note: Delta values are not applicable if symptoms began more than 12 hours pre-arrival. Risk stratification should include the calculation of the HEART score. The testing method is an immunoenzymatic assay manufactured by [employer] and performed on the [employer] DxI 800. Petrona Gabriel MD LAB BLOOD ORDERABLES Final Resu lt Performing Organization Address [facility]/ZIP Co de Phone Number [facility] [address] [place] [address], * ECG 12 lead (04/26/2025 1:04 AM EDT) Only the most recent of2 resultswithin the time period is included. Ventricular Rate ECG 83 BPM GEMUSE Atrial Rate 83 BPM GEMUSE P-R Interval 168 ms GEMUSE QRS Duration 122 ms GEMUSE Q-T Interval 386 ms GEMUSE QTc 453 ms GEMUSE P Wave [place] 27 degrees GEMUSE R [place] -43 degrees GEMUSE T [place] 32 degrees GEMUSE ECG Interpretation Normal sinus rhythm Left axis deviation Nonspecific intraventricular conduction delay Minimal voltage criteria for LVH, may be normal variant ( [place] product ) Nonspecific T wave abnormality Abnormal ECG Confirmed by Bryan Carrera ([id number]) on 04/26/2025 11:33:52 AM GEMUSE 04/26/2025 1:04 AM EDT 04/26/2025 11:33 AM EDT Petrona Gabriel MD ECG ORDERABLES Final Result Performing Organization Address [facility] Co de Phone Number GEMUSE * Legionella antigen urine, EIA (04/25/2025 5:38 PM EDT) Legionella Urinary Antigen Negative Negative 04/28/2025 12:06 PM EDT [facility] Comment: Presumptive negative for L. pneumophila serogroup 1 antigen in urine, suggesting no recent or current infection. Legionnaires' disease cannot be ruled out since other serogroups and species may also cause disease. Test performed at [facility], [address] , [place] [address] Mirta Contreras MD, PhD - [employer] Urine Urine specimen obtained by clean catch procedure / Unknown Non-blood Collection / Unknown 04/25/2025 5:38 PM EDT 04/25/2025 5:55 PM EDT us Galina Govea MD LAB URINE ORDERABLES Final Resul t [facility] [address] [place] [address] * CT Abdomen Pelvis w Contrast (04/25/2025 3:32 PM EDT) Anatomical Region Laterality Modality Body Computed Tomogra phy 04/25/2025 3:33 PM EDT Impressions 04/25/2025 3:55 PM EDT 1. No evidence of pulmonary emboli. 2. Numerous bilateral pulmonary metastases. 3. Mild pulmonary interstitial edema with peribronchovascular nodular consolidations and groundglass opacity in all 5 lobes concerning for multilobar pneumonia, however could pulmonary edema could have a similar appearance. Findings of appears to be superimposed on a background of chronic interstitial/fibrotic changes. 4. Mildly enlarged subcarinal lymph node which may be metastatic or reactive. 5. Subcentimeter hypodensity in the periphery of the right hepatic lobe, too small to characterize and inadequately characterized on the current study. Recommend follow-up MRI of the abdomen without and with contrast for further evaluation. 6. Indeterminate left adrenal nodule concerning for a metastasis in the setting of metastatic melanoma and can also be further evaluated at follow-up MRI. -------- FINAL REPORT -------- Dictated By: Oziel Moyer Dictated Date: 04/25/2025 15:33 ET Assigned Physician: Oziel Moyer Reviewed and Electronically Signed By: Oziel Moyer Signed Date: 04/25/2025 15:55 ET Workstation ID: [id number] Transcribed By: Self Edit Transcribed Date: 04/25/2025 15:33 ET Narrative 04/25/2025 3:55 PM EDT EXAM: CT ANGIO CHEST WO AND/OR W CONTRAST, CT ABDOMEN PELVIS W CONTRAST INDICATIONS: r/o PE AHRF in setting of malignancy TECHNIQUE: CT of the chest, abdomen, and pelvis was obtained and reconstructed in axial, coronal, and sagittal images from the thoracic inlet through the ischial tuberosities. 100 mL Isovue-370 low osmolar IV contrast was administered to the patient via power injector without complication. COMPARISON: None. FINDINGS: Vasculature: Contrast bolus is adequate for evaluation of pulmonary arteries. No evidence of pulmonary embolism. Mildly dilated ascending aorta measuring 37 mm in diameter at the level of the right pulmonary artery. Aortic dissection or mural hematoma. Cardiac: Mild biatrial enlargement. Extensive coronary artery calcifications are present. Lungs: Central airways are patent. Nodular peribronchovascular consolidations and groundglass opacity in the in all 5 lobes, though most pronounced in the left upper and lower lobe. Peribronchovascular reticulation, architectural distortion, and traction bronchiectasis is also present in all 5 lobes with a lower lobe predominance. Mild interlobular septal thickening. Numerous bilateral pulmonary nodules with the largest nodules seen on series 9 as follows: Left upper lobe 17 x 14 mm (image 89). Anterior right upper lobe subpleural 25 x 36 mm (image 134). Right middle lobe fracture 20 x 24 mm along the minor fissure (image 176). Superior segment right lower lobe along the major fissure 30 x 19 mm (image 188). Lingula 18 x 24 mm (image 194). Left lower lobe superior segment 16 x 14 mm (image 207). Pleura: No pleural abnormality. Thyroid: Unremarkable. Thoracic lymph nodes: Minor subcarinal lymph nodes measure 13 mm in short axis. No sternoclavicular or axillary lymphadenopathy. Technical note: Excretory phase of contrast on the abdominal and pelvic CT degrades evaluation. Liver: Right posterior hepatic subcapsular 8mm hypodensity (series 4, image 21). No additional liver lesion. Spleen: Unremarkable. Pancreas: Unremarkable. Gallbladder, bile ducts: Unremarkable. No biliary ductal dilatation. Adrenal glands: Indeterminate left adrenal 19 x 13 mm nodule (series 4, image 26. Right adrenal gland is unremarkable. Kidneys, ureters: No hydronephrosis. Mild bilateral perinephric fat stranding. Bladder: Unremarkable. Pelvis: Evaluation degraded by streak artifact produced by the right total hip arthroplasty. No evidence of a pelvic mass. Stomach, bowel: No bowel wall thickening or obstruction. Mild edema of the mesenteric and omental fat. Normal appendix. Colonic diverticulosis without localized peridiverticular inflammatory change. Small hiatal hernia. Abdominal pelvic lymph nodes: No abdominal or pelvic lymphadenopathy. Bones: No aggressive osseous lesion. Body wall, miscellaneous: Mild anasarca. Dystrophic calcifications in the right gluteal subcutaneous fat. Procedure Note Oziel Moyer MD - 04/25/2025 EXAM: CT ANGIO CHEST WO AND/OR W CONTRAST, CT ABDOMEN PELVIS W CONTRAST INDICATIONS: r/o PE AHRF in setting of malignancy TECHNIQUE: CT of the chest, abdomen, and pelvis was obtained andreconstructed in axial, coronal, and sagittal images from the thoracicinlet through the ischial tuberosities. 100 mL Isovue-370 low osmolar IVcontrast was administered to the patient via power injector withoutcomplication. COMPARISON: None. FINDINGS: Vasculature: Contrast bolus is adequate for evaluation of pulmonaryarteries. No evidence of pulmonary embolism. Mildly dilated ascendingaorta measuring 37 mm in diameter at the level of the right pulmonaryartery. Aortic dissection or mural hematoma. Cardiac: Mild biatrial enlargement. Extensive coronary arterycalcifications are present. Lungs: Central airways are patent. Nodular peribronchovascularconsolidations and groundglass opacity in the in all 5 lobes, though mostpronounced in the left upper and lower lobe. Peribronchovascularreticulation, architectural distortion, and traction bronchiectasis isalso present in all 5 lobes with a lower lobe predominance. Mildinterlobular septal thickening. Numerous bilateral pulmonary nodules withthe largest nodules seen on series 9 as follows: Left upper lobe 17 x 14 mm (image 89). Anterior right upper lobe subpleural 25 x 36 mm (image 134). Right middle lobe fracture 20 x 24 mm along the minor fissure (). Superior segment right lower lobe along the major fissure 30 x 19 mm(image 188). Lingula 18 x 24 mm (image 194). Left lower lobe superior segment 16 x 14 mm (image 207). Pleura: No pleural abnormality. Thyroid: Unremarkable. Thoracic lymph nodes: Minor subcarinal lymph nodes measure 13 mm in shortaxis. No sternoclavicular or axillary lymphadenopathy. Technical note: Excretory phase of contrast on the abdominal and pelvic CTdegrades evaluation. Liver: Right posterior hepatic subcapsular 8mm hypodensity (series 4,image 21). No additional liver lesion. Spleen: Unremarkable. Pancreas: Unremarkable. Gallbladder, bile ducts: Unremarkable. No biliary ductal dilatation. Adrenal glands: Indeterminate left adrenal 19 x 13 mm nodule (series 4,image 26. Right adrenal gland is unremarkable. Kidneys, ureters: No hydronephrosis. Mild bilateral perinephric fatstranding. Bladder: Unremarkable. Pelvis: Evaluation degraded by streak artifact produced by the right totalhip arthroplasty. No evidence of a pelvic mass. Stomach, bowel: No bowel wall thickening or obstruction. Mild edema of themesenteric and omental fat. Normal appendix. Colonic diverticulosiswithout localized peridiverticular inflammatory change. Small hiatalhernia. Abdominal pelvic lymph nodes: No abdominal or pelvic lymphadenopathy. Bones: No aggressive osseous lesion. Body wall, miscellaneous: Mild anasarca. Dystrophic calcifications in theright gluteal subcutaneous fat. IMPRESSION: 1. No evidence of pulmonary emboli. 2. Numerous bilateral pulmonary metastases. 3. Mild pulmonary interstitial edema with peribronchovascular nodularconsolidations and groundglass opacity in all 5 lobes concerning formultilobar pneumonia, however could pulmonary edema could have a similarappearance. Findings of appears to be superimposed on a background ofchronic interstitial/fibrotic changes. 4. Mildly enlarged subcarinal lymph node which may be metastatic orreactive. 5. Subcentimeter hypodensity in the periphery of the right hepatic lobe,too small to characterize and inadequately characterized on the currentstudy. Recommend follow-up MRI of the abdomen without and with contrastfor further evaluation. 6. Indeterminate left adrenal nodule concerning for a metastasis in thesetting of metastatic melanoma and can also be further evaluated atfollow-up MRI. -------- FINAL REPORT -------- Dictated By: Oziel Moyer Dictated Date: 04/25/2025 15:33 ET Assigned Physician: Oziel Moyer Reviewed and Electronically Signed By: Oziel Moyer Signed Date: 04/25/2025 15:55 ET Workstation ID: [id number] Transcribed By: Self Edit Transcribed Date: 04/25/2025 15:33 ET us Augustine Arredondo MD IMG CT PROCEDURES Final R esult * CT Angio Chest wo and/or w Contrast (04/25/2025 3:32 PM EDT) Anatomical Region Laterality Modality Body Computed Tomogra phy 04/25/2025 3:33 PM EDT Impressions 04/25/2025 3:55 PM EDT 1. No evidence of pulmonary emboli. 2. Numerous bilateral pulmonary metastases. 3. Mild pulmonary interstitial edema with peribronchovascular nodular consolidations and groundglass opacity in all 5 lobes concerning for multilobar pneumonia, however could pulmonary edema could have a similar appearance. Findings of appears to be superimposed on a background of chronic interstitial/fibrotic changes. 4. Mildly enlarged subcarinal lymph node which may be metastatic or reactive. 5. Subcentimeter hypodensity in the periphery of the right hepatic lobe, too small to characterize and inadequately characterized on the current study. Recommend follow-up MRI of the abdomen without and with contrast for further evaluation. 6. Indeterminate left adrenal nodule concerning for a metastasis in the setting of metastatic melanoma and can also be further evaluated at follow-up MRI. -------- FINAL REPORT -------- Dictated By: Oziel Myoer Dictated Date: 04/25/2025 15:33 ET Assigned Physician: Oziel Moyer Reviewed and Electronically Signed By: Oziel Moyer Signed Date: 04/25/2025 15:55 ET Workstation ID: [id number] Transcribed By: Self Edit Transcribed Date: 04/25/2025 15:33 ET Narrative 04/25/2025 3:55 PM EDT EXAM: CT ANGIO CHEST WO AND/OR W CONTRAST, CT ABDOMEN PELVIS W CONTRAST INDICATIONS: r/o PE AHRF in setting of malignancy TECHNIQUE: CT of the chest, abdomen, and pelvis was obtained and reconstructed in axial, coronal, and sagittal images from the thoracic inlet through the ischial tuberosities. 100 mL Isovue-370 low osmolar IV contrast was administered to the patient via power injector without complication. COMPARISON: None. FINDINGS: Vasculature: Contrast bolus is adequate for evaluation of pulmonary arteries. No evidence of pulmonary embolism. Mildly dilated ascending aorta measuring 37 mm in diameter at the level of the right pulmonary artery. Aortic dissection or mural hematoma. Cardiac: Mild biatrial enlargement. Extensive coronary artery calcifications are present. Lungs: Central airways are patent. Nodular peribronchovascular consolidations and groundglass opacity in the in all 5 lobes, though most pronounced in the left upper and lower lobe. Peribronchovascular reticulation, architectural distortion, and traction bronchiectasis is also present in all 5 lobes with a lower lobe predominance. Mild interlobular septal thickening. Numerous bilateral pulmonary nodules with the largest nodules seen on series 9 as follows: Left upper lobe 17 x 14 mm (image 89). Anterior right upper lobe subpleural 25 x 36 mm (image 134). Right middle lobe fracture 20 x 24 mm along the minor fissure (image 176). Superior segment right lower lobe along the major fissure 30 x 19 mm (image 188). Lingula 18 x 24 mm (image 194). Left lower lobe superior segment 16 x 14 mm (image 207). Pleura: No pleural abnormality. Thyroid: Unremarkable. Thoracic lymph nodes: Minor subcarinal lymph nodes measure 13 mm in short axis. No sternoclavicular or axillary lymphadenopathy. Technical note: Excretory phase of contrast on the abdominal and pelvic CT degrades evaluation. Liver: Right posterior hepatic subcapsular 8mm hypodensity (series 4, image 21). No additional liver lesion. Spleen: Unremarkable. Pancreas: Unremarkable. Gallbladder, bile ducts: Unremarkable. No biliary ductal dilatation. Adrenal glands: Indeterminate left adrenal 19 x 13 mm nodule (series 4, image 26. Right adrenal gland is unremarkable. Kidneys, ureters: No hydronephrosis. Mild bilateral perinephric fat stranding. Bladder: Unremarkable. Pelvis: Evaluation degraded by streak artifact produced by the right total hip arthroplasty. No evidence of a pelvic mass. Stomach, bowel: No bowel wall thickening or obstruction. Mild edema of the mesenteric and omental fat. Normal appendix. Colonic diverticulosis without localized peridiverticular inflammatory change. Small hiatal hernia. Abdominal pelvic lymph nodes: No abdominal or pelvic lymphadenopathy. Bones: No aggressive osseous lesion. Body wall, miscellaneous: Mild anasarca. Dystrophic calcifications in the right gluteal subcutaneous fat. Procedure Note Oziel Moyer MD - 04/25/2025 EXAM: CT ANGIO CHEST WO AND/OR W CONTRAST, CT ABDOMEN PELVIS W CONTRAST INDICATIONS: r/o PE AHRF in setting of malignancy TECHNIQUE: CT of the chest, abdomen, and pelvis was obtained andreconstructed in axial, coronal, and sagittal images from the thoracicinlet through the ischial tuberosities. 100 mL Isovue-370 low osmolar IVcontrast was administered to the patient via power injector withoutcomplication. COMPARISON: None. FINDINGS: Vasculature: Contrast bolus is adequate for evaluation of pulmonaryarteries. No evidence of pulmonary embolism. Mildly dilated ascendingaorta measuring 37 mm in diameter at the level of the right pulmonaryartery. Aortic dissection or mural hematoma. Cardiac: Mild biatrial enlargement. Extensive coronary arterycalcifications are present. Lungs: Central airways are patent. Nodular peribronchovascularconsolidations and groundglass opacity in the in all 5 lobes, though mostpronounced in the left upper and lower lobe. Peribronchovascularreticulation, architectural distortion, and traction bronchiectasis isalso present in all 5 lobes with a lower lobe predominance. Mildinterlobular septal thickening. Numerous bilateral pulmonary nodules withthe largest nodules seen on series 9 as follows: Left upper lobe 17 x 14 mm (image 89). Anterior right upper lobe subpleural 25 x 36 mm (image 134). Right middle lobe fracture 20 x 24 mm along the minor fissure (). Superior segment right lower lobe along the major fissure 30 x 19 mm(image 188). Lingula 18 x 24 mm (image 194). Left lower lobe superior segment 16 x 14 mm (image 207). Pleura: No pleural abnormality. Thyroid: Unremarkable. Thoracic lymph nodes: Minor subcarinal lymph nodes measure 13 mm in shortaxis. No sternoclavicular or axillary lymphadenopathy. Technical note: Excretory phase of contrast on the abdominal and pelvic CTdegrades evaluation. Liver: Right posterior hepatic subcapsular 8mm hypodensity (series 4,image 21). No additional liver lesion. Spleen: Unremarkable. Pancreas: Unremarkable. Gallbladder, bile ducts: Unremarkable. No biliary ductal dilatation. Adrenal glands: Indeterminate left adrenal 19 x 13 mm nodule (series 4,image 26. Right adrenal gland is unremarkable. Kidneys, ureters: No hydronephrosis. Mild bilateral perinephric fatstranding. Bladder: Unremarkable. Pelvis: Evaluation degraded by streak artifact produced by the right totalhip arthroplasty. No evidence of a pelvic mass. Stomach, bowel: No bowel wall thickening or obstruction. Mild edema of themesenteric and omental fat. Normal appendix. Colonic diverticulosiswithout localized peridiverticular inflammatory change. Small hiatalhernia. Abdominal pelvic lymph nodes: No abdominal or pelvic lymphadenopathy. Bones: No aggressive osseous lesion. Body wall, miscellaneous: Mild anasarca. Dystrophic calcifications in theright gluteal subcutaneous fat. IMPRESSION: 1. No evidence of pulmonary emboli. 2. Numerous bilateral pulmonary metastases. 3. Mild pulmonary interstitial edema with peribronchovascular nodularconsolidations and groundglass opacity in all 5 lobes concerning formultilobar pneumonia, however could pulmonary edema could have a similarappearance. Findings of appears to be superimposed on a background ofchronic interstitial/fibrotic changes. 4. Mildly enlarged subcarinal lymph node which may be metastatic orreactive. 5. Subcentimeter hypodensity in the periphery of the right hepatic lobe,too small to characterize and inadequately characterized on the currentstudy. Recommend follow-up MRI of the abdomen without and with contrastfor further evaluation. 6. Indeterminate left adrenal nodule concerning for a metastasis in thesetting of metastatic melanoma and can also be further evaluated atfollow-up MRI. -------- FINAL REPORT -------- Dictated By: Oziel Moyer Dictated Date: 04/25/2025 15:33 ET Assigned Physician: Oziel Moyer Reviewed and Electronically Signed By: Oziel Moyer Signed Date: 04/25/2025 15:55 ET Workstation ID: [id number] Transcribed By: Self Edit Transcribed Date: 04/25/2025 15:33 ET us Augustine Arredondo MD IMG CT PROCEDURES Final R esult * (ABNORMAL) TRANSTHORACIC ECHOCARDIOGRAM (TTE) COMPLETE W/ CONTRAST (04/25/2025 12:04 PM EDT) BSA 2.17 m2 CV PACS LV EDV (A2C) 214 mL CV PACS LV EDV (A4C) 222 mL CV PACS LV Diastolic Volume (BP) 218(A) 62 - 150 mL CV PACS LV ESV (A2C) 132 mL CV PACS LV ESV (A4C) 146 mL CV PACS LV Systolic Volume (BP) 139(A) 21 - 61 mL CV PACS IVSD 0.8 0.6 - 1.0 cm CV PACS LVIDD 6.7(A) 4.2 - 5.8 cm CV PACS LVIDS 5.4(A) 2.5 - 4.0 cm CV PACS LVOT Diameter 2.7 cm CV PACS LVOT Mean Grad 2 mmHg CV PACS LVOT Peak VTI 16.2 cm CV PACS LVOT Mean Allan 0.6 m/s CV PACS LVOT Peak Allan 0.9 m/s CV PACS LVOT Peak Gradient 3 mmHg CV PACS LVPWD 0.8 0.6 - 1.0 cm CV PACS MV E' Tissue Velocity Lateral 5 cm/s CV PACS MV E' Tissue Velocity Septal 5 cm/s CV PACS Ejection Fraction (A2C) 38 % CV PACS Ejection Fraction (A4C) 34 % CV PACS Ejection Fraction (BP) 36 % CV PACS LVOT Area 5.7 cm2 CV PACS LVOT Stroke Volume 93 mL CV PACS Left Atrium Minor [place] 5.6 cm CV PACS Left Atrium Major [place] 5.9 cm CV PACS LA Area Sys (A2C) 27 cm2 CV PACS LA Area Sys (A4C) 32 cm2 CV PACS LA Volume (BP) 118 mL CV PACS RA Area 21.7 cm2 CV PACS RA 2D Volume 65 mL CV PACS Aortic Root 4.3 cm CV PACS Ascending Aorta 4.0 cm CV PACS IVC Proximal 2.3 cm CV PACS MV Peak A Allan 0.91 m/s CV PACS MV Peak E [place] 0.50 m/s CV PACS RI End Max Velocity 1.0 m/s CV PACS PA End Diastolic Pressure 4 mmHg CV PACS PV Peak Velocity 1.0 m/s CV PACS PV Peak Gradient 4 mmHg CV PACS RV Diastolic Basal Dimension 4.7(A) 2.5 - 4.1 cm CV PACS RV S' 12 cm/s CV PACS TAPSE 28 mm CV PACS TR Peak Velocity 1.48 m/s CV PACS TR Peak Gradient 9 mmHg CV PACS LV ESV Index (A4C) 68 mL/m2 CV PACS LV EDV Index (A4C) 103 mL/m2 CV PACS E/E' Ratio Septal 10 CV PACS E/E' Ratio Averaged 10 CV PACS LVOT Stroke Index 43 mL/m2 CV PACS Relative Wall Thickness ratio 0.24 CV PACS FS 19 % CV PACS LV Mass 2D 226 g CV PACS Ascending Aorta Index 1.85 cm/m2 CV PACS LVOT flow 343 mL/s CV PACS RA 2D Volume Index 30 mL/m2 CV PACS LVIDD Index 3.10 cm/m2 CV PACS LVIDS Index 2.50 cm/m2 CV PACS Aortic Root Index 1.99 cm/m2 CV PACS E/A Ratio 0.5 CV PACS E/E' Ratio Lateral 10 CV PACS LV Systolic Volume Index (BP) 64 mL/m2 CV PACS LV Diastolic Volume Index (BP) 101 mL/m2 CV PACS LA Volume Index (BP) 55 mL/m2 CV PACS LV Mass Index 2D 105 g/m2 CV PACS LV EDV Index (A2C) 99 mL/m2 CV PACS LV ESV Index (A2C) 61 mL/m2 CV PACS Right Ventricular Peak Systolic Pressure 17 mmHg CV PACS Est. RA Pressure 8 mmHg CV PACS PASP 17 mmHg CV PACS Anatomical Region Laterality Modality Ultrasound Narrative 04/25/2025 1:18 PM EDT Left ventricle cavity is moderately dilated. Left ventricular systolic function is mildly decreased with an ejection fraction of 40-45%. Moderate LV global hypokinesis is present. Left ventricle wall thickness is normal. Right ventricle cavity is mildly enlarged. Right ventricular systolic function is normal. The ascending aorta is mildly dilated (4.0 cm). The aortic root is mildly dilated (4.3 cm). The ascending aorta is mildly dilated (4.0 cm). Left Ventricle Left ventricle cavity is moderately dilated. Wall thickness is normal. Systolic function is mildly decreased with an ejection fraction of 40-45%. Moderate global LV hypokinesis is present. There is Grade I (mild) diastolic dysfunction. Right Ventricle Right ventricle cavity is mildly dilated. Systolic function is normal. Normal TAPSE (> 17 mm). Left Atrium Left atrium cavity is severely dilated. Left atrium volume index is severely increased. Right Atrium Right atrium cavity is mildly dilated. IVC/SVC Inferior vena cava is dilated. RA pressures is estimated to be 8 mmHg (IVC diameter >21 mm and decreases >50% during inspiration). Mitral Valve Mitral valve structure is normal. There is mild regurgitation. There is no evidence of mitral valve stenosis. Tricuspid Valve Tricuspid valve structure is normal. There is trace regurgitation. There is no evidence of tricuspid valve stenosis. The right ventricular systolic pressure is normal. Aortic Valve The aortic valve is trileaflet. There is no significant regurgitation. There is no evidence of aortic valve stenosis. Pulmonic Valve The pulmonic valve was not well visualized. There is mild pulmonic valve regurgitation. There is no evidence of pulmonic valve stenosis. The estimated pulmonary artery systolic pressure is 17 mmHg. There is no pulmonary hypertension. Ascending Aorta The aortic root is mildly dilated (4.3 cm). The ascending aorta is mildly dilated (4.0 cm). Pericardium There is an anterior fat pad. There is no pericardial effusion. Study Details Overall the study quality was adequate. Definity contrast was given to enhance imaging. Limited study due to patient tolerance. Study was difficult due to: procedure performed with the patient in a sitting position. us Petrona Gabriel MD CV ECHO PROCEDURES Final Result * Fungal akfq-[id number] with reflex to titer (04/25/2025 8:02 AM EDT) Fungitell (Serum) <31 <80 pg/mL 025 1:46 PM EDT [facility] Comment: Interpretation: The Fungitell assay does not detect certain fungal species such as the genus Cryptococcus (Nita et al. 1991) which produces very low levels of (1-3)-Uaah-S-Oltzqs. The assay also does not detect the Zygomycetes such as Absidia, Mucor and Rhizopus (Katya et al. 1994) which are not known to produce (1-3)-Ynkm-I-Onedtj. In addition, the yeast phase of Blastomyces dermatitidis produces little (1-3)-Svzw-C-Xjczun and may not be detected by the assay (Dayami et al. 2007). Reference Range: Less than 60 pg/mL. Glucan values of less than 60 pg/mL are interpreted as negative. Glucan values of 60 to 79 pg/mL are interpreted as indeterminate, and suggest a possible fungal infection. Additional sampling and testing of sera is required to interpret the results. Glucan values of greater than or equal to 80 pg/mL are interpreted as positive. Due to the potential for environmental contamination when transferred to pour-off tubes, which can lead to false positive results, interpret positive results from samples provided in pour-off tubes with caution. Results should be used in conjunction with clinical findings, and should not form the sole basis for a diagnosis or treatment decision. The Fungitell test is approved or cleared for in vitro diagnostic use by the [place] Food and Drug Administration. Modifications to the approved package insert have been made and the performance characteristics for these modifications were determined by [facility]. If sample result is greater than 500 pg/mL, physician may order a titer of the sample. Please contact [facility] if you would like to order a retest of this sample to obtain an actual value. Samples are held for 1 week after initial testing date. Testing Performed At: [facility] [address] [place] [address], [place] [address] Disbursement Clerk: Lui Choudhury, PhD [facility] ([facility]) CLIA # [id number] [facility] Interpretation: A = Abnormal, H = High, L = Low Fungitell Titer (Serum) TNP 04/29/2025 1:46 PM EDT [facility] Blood Venous blood specimen / Unknown Venipuncture / Unknown 04/25/2025 8:02 AM EDT 04/25/2025 8:31 AM EDT us Petrona Gabriel MD LAB BLOOD ORDERABLES Final Resu lt [facility] [address] [place] [address] * Aspergillus galactomannan antigen (04/25/2025 8:02 AM EDT) Aspergillus Antigen Index Value <0.50 05/01/2025 7:38 PM EDT [facility] Aspergillus Antigen, EIA NOT DETECTED 05/01/2025 7:38 PM EDT [facility] Comment: REFERENCE RANGE: <0.50, NOT DETECTED An Index <0.50 is considered to be negative. An Index >=0.50 is considered to be positive. A positive result for patients being treated with piperacillin-tazobactam and other beta-lactam antibiotics such as amoxicillin-clavulanate may be a false positive due to cross reactivity and should be viewed in conjunction with all clinical findings. Positive results with this assay has also been reported in patients infected with Penicillium marneffei and Cryptococcus. Test Performed at: [facility] [address] [place] [id number] Geno Castillo MD, PhD Blood Venous blood specimen / Unknown Venipuncture / Unknown 04/25/2025 8:02 AM EDT 04/25/2025 8:31 AM EDT Petrona Gabriel MD LAB BLOOD ORDERABLES Final Resu lt [facility] [address] [place] [address] * Venous blood gas (04/25/2025 8:02 AM EDT) pH, Jae 7.39 7.35 - 7.45 pH LAB BLOOD GAS METHOD 04/25/2025 8:34 AM EDT [facility] pCO2, Jae 44 mmHg LAB BLOOD GAS METHOD 04/25/2025 8:34 AM EDT [facility] Comment:No established refer ence range. pO2, Jae 89 mmHg LAB BLOOD GAS METHOD 04/25/2025 8:34 AM EDT [facility] Comment:No established refer ence range. HCO3, Venous 25.8 mmol/L LAB BLOOD GAS METHOD 04/25/2025 8:34 AM EDT [facility] Comment:No established refer ence range. O2 Sat, Jae 98.6 % LAB BLOOD GAS METHOD 04/25/2025 8:34 AM EDT [facility] Comment:No established refer ence range. Base Excess, Jae 1.2 mmol/L LAB BLOOD GAS METHOD 04/25/2025 8:34 AM EDT [facility] Comment:No established refer ence range. Blood Venous blood specimen / Unknown Venipuncture / Unknown 04/25/2025 8:02 AM EDT 04/25/2025 8:31 AM EDT Petrona Gabriel MD LAB BLOOD ORDERABLES Final Resu lt [facility] [address] [place] [address], [place] [phone] * MRSA molecular study (04/25/2025 12:25 AM EDT) MRSA Screen PCR Not Detected Not Detected LAB MOLECULAR DIAGNOSTICS METHOD 04/25/2025 2:01 AM EDT [facility] Swab Both anterior nares / Unknown Non-blood Collection / Unknown 04/25/2025 12:25 AM EDT 04/25/2025 12:30 AM EDT Augustine Arredondo MD LAB MICROBIOLOGY - GENERA L ORDERABLES Final Result Performing Organization Address City/[facility]/ZIP Co de Phone Number [facility] [address] [place] [address], [place] [phone] * (ABNORMAL) Procalcitonin (04/24/2025 11:49 AM EDT) Procalcitonin 8.77(H) <=0.05 ng/mL LAB CHEMISTRY METHOD 04/24/2025 5:49 PM EDT [facility] Blood Venous blood specimen / Unknown Venipuncture / Unknown 04/24/2025 11:49 AM EDT 04/24/2025 12:01 PM EDT Narrative [facility] - 04/24/2025 5:49 PM EDT Procalcitonin levels above 2.0 ng/mL represent a high risk of progression to severe sepsis and/or septic shock. Note that levels below 0.50 ng/mL do not exclude an infection, and increased levels can occur without infection. Procalcitonin levels should be interpreted in the context of other clinical and laboratory findings. us Augustine Arredondo MD LAB BLOOD ORDERABLES Jessica valdez Result [facility] [address] [place] [address], [place] [phone] * (ABNORMAL) CBC auto differential (04/24/2025 11:49 AM EDT) Only the most recent of2 resultswithin the time period is included. WBC 9.3 4.0 - 10.5 K/mcL LAB HEMETOLOGY METHOD 04/24/2025 12:10 PM EDT [facility] RBC 4.60(L) 4.70 - 6.00 M/mcL LAB HEMETOLOGY METHOD 04/24/2025 12:10 PM EDT [facility] Hemoglobin 12.4(L) 13.5 - 18.0 g/dL LAB HEMETOLOGY METHOD 04/24/2025 12:10 PM EDT [facility] Hematocrit 38.9(L) 40.0 - 54.0 % LAB HEMETOLOGY METHOD 04/24/2025 12:10 PM EDT [facility] MCV 84.6 78.0 - 100.0 FL LAB HEMETOLOGY METHOD 04/24/2025 12:10 PM EDT [facility] MCH 27.1 25.0 - 33.0 pcg LAB HEMETOLOGY METHOD 04/24/2025 12:10 PM EDT [facility] MCHC 32.0 32.0 - 36.0 g/dL LAB HEMETOLOGY METHOD 04/24/2025 12:10 PM EDT [facility] RDW 15.4 12.1 - 17.7 % LAB HEMETOLOGY METHOD 04/24/2025 12:10 PM EDT [facility] Platelets 249 150 - 450 K/mcL LAB HEMETOLOGY METHOD 04/24/2025 12:10 PM EDT [facility] MPV 7.5 7.4 - 11.4 FL LAB HEMETOLOGY METHOD 04/24/2025 12:10 PM EDT [facility] Neutrophils Relative 94.0(H) 44.0 - 74.0 % LAB HEMETOLOGY METHOD 04/24/2025 12:10 PM EDT [facility] Lymphocytes Relative 2.0(L) 20.0 - 48.0 % LAB HEMETOLOGY METHOD 04/24/2025 12:10 PM EDT [facility] Monocytes Relative 3.9 2.0 - 12.0 % LAB HEMETOLOGY METHOD 04/24/2025 12:10 PM EDT [facility] Eosinophils Relative 0.0 0.0 - 6.0 % LAB HEMETOLOGY METHOD 04/24/2025 12:10 PM EDT [facility] Basophils Relative 0.1 0.0 - 2.0 % LAB HEMETOLOGY METHOD 04/24/2025 12:10 PM EDT [facility] Neutrophils Absolute 8.80(H) 1.80 - 7.80 K/mcL LAB HEMETOLOGY METHOD 04/24/2025 12:10 PM EDT [facility] Lymphocytes Absolute 0.20(L) 1.00 - 3.20 K/mcL LAB HEMETOLOGY METHOD 04/24/2025 12:10 PM EDT [facility] Monocytes Absolute 0.40 0.00 - 0.80 K/mcL LAB HEMETOLOGY METHOD 04/24/2025 12:10 PM EDT [facility] Eosinophils Absolute 0.00 0.00 - 0.50 K/mcL LAB HEMETOLOGY METHOD 04/24/2025 12:10 PM EDT [facility] Basophils Absolute 0.00 0.00 - 0.20 K/mcL LAB HEMETOLOGY METHOD 04/24/2025 12:10 PM EDT [facility] Blood Venous blood specimen / Unknown Venipuncture / Unknown 04/24/2025 11:49 AM EDT 04/24/2025 12:01 PM EDT us Milagros Pedro MD LAB BLOOD ORDERABLES Final Res ult [facility] [address] [place] [address], [place] [phone] * (ABNORMAL) Hepatic function panel (04/24/2025 11:49 AM EDT) ALT (SGPT) 31 7 - 52 unit/L LAB CHEMISTRY METHOD 04/24/2025 2:29 PM EDT [facility] AST (SGOT) 29 5 - 40 unit/L LAB CHEMISTRY METHOD 04/24/2025 2:29 PM EDT [facility] Alkaline Phosphatase 40 34 - 104 unit/L LAB CHEMISTRY METHOD 04/24/2025 2:29 PM EDT [facility] Bilirubin, Direct 0.1 0.0 - 0.2 mg/dL LAB CHEMISTRY METHOD 04/24/2025 2:29 PM EDT [facility] Total Bilirubin 0.5 0.3 - 1.0 mg/dL LAB CHEMISTRY METHOD 04/24/2025 2:29 PM EDT [facility] Total Protein 5.9(L) 6.4 - 8.5 g/dL LAB CHEMISTRY METHOD 04/24/2025 2:29 PM EDT [facility] Albumin 3.4(L) 3.5 - 5.0 g/dL LAB CHEMISTRY METHOD 04/24/2025 2:29 PM EDT [facility] Globulin, Total 2.5 2.3 - 3.5 g/dL LAB CHEMISTRY METHOD 04/24/2025 2:29 PM EDT [facility] A/G Ratio 1.4 LAB CHEMISTRY METHOD 04/24/2025 2:29 PM EDT [facility] Blood Venous blood specimen / Unknown Venipuncture / Unknown 04/24/2025 11:49 AM EDT 04/24/2025 12:01 PM EDT us Augustine Arredondo MD LAB BLOOD ORDERABLES Jessica l Result [facility] [address] [place] [address], [place] [phone] * (ABNORMAL) Basic Metabolic Panel (BMP) (04/24/2025 11:49 AM EDT) Sodium 133(L) 135 - 145 mmol/L LAB CHEMISTRY METHOD 04/24/2025 12:31 PM EDT [facility] Potassium 4.5 3.5 - 5.1 mmol/L LAB CHEMISTRY METHOD 04/24/2025 12:31 PM EDT [facility] Chloride 101 98 - 107 mmol/L LAB CHEMISTRY METHOD 04/24/2025 12:31 PM EDT [facility] CO2 22(L) 24 - 32 mmol/L LAB CHEMISTRY METHOD 04/24/2025 12:31 PM EDT [facility] Anion Gap 10 5 - 14 LAB CHEMISTRY METHOD 04/24/2025 12:31 PM EDT [facility] Glucose 137 70 - 199 mg/dL LAB CHEMISTRY METHOD 04/24/2025 12:31 PM EDT [facility] BUN 21(H) 9 - 20 mg/dL LAB CHEMISTRY METHOD 04/24/2025 12:31 PM EDT [facility] [facility] Creatinine 1.30 0.70 - 1.30 mg/dL LAB CHEMISTRY METHOD 04/24/2025 12:31 PM EDT [facility] eGFR 62 >=60 mL/min/1. 73m2 LAB CHEMISTRY METHOD 04/24/2025 12:31 PM EDT [facility] Comment:Calculation based on the Chronic Kidney Disease Epidemiology Collaboration (CKD-EPI) equation refit without adjustment for race. BUN/Creatinine Ratio 16.2 12.0 - 20.0 LAB CHEMISTRY METHOD 04/24/2025 12:31 PM EDT [facility] Calcium 8.3(L) 8.4 - 10.2 mg/dL LAB CHEMISTRY METHOD 04/24/2025 12:31 PM EDT [facility] Blood Venous blood specimen / Unknown Venipuncture / Unknown 04/24/2025 11:49 AM EDT 04/24/2025 12:01 PM EDT us Milagros Pedro MD LAB BLOOD ORDERABLES Final Res ult [facility] [address] [place] [address], [place] [phone] * Respiratory virus panel molecular study (04/24/2025 11:42 AM EDT) Adenovirus Detection by PCR Not Detected Not Detected LAB MICROBIOLOGY METHOD 04/24/2025 1:00 PM EDT [facility] Influenza A PCR Not Detected Not Detected LAB MICROBIOLOGY METHOD 04/24/2025 1:00 PM EDT [facility] Influenza B PCR Not Detected Not Detected, Invalid LAB MICROBIOLOGY METHOD 04/24/2025 1:00 PM EDT [facility] Coronavirus 229E Not Detected Not Detected LAB MICROBIOLOGY METHOD 04/24/2025 1:00 PM EDT [facility] Coronavirus HKU1 Not Detected Not Detected LAB MICROBIOLOGY METHOD 04/24/2025 1:00 PM EDT [facility] Coronavirus OC43 Not Detected Not Detected LAB MICROBIOLOGY METHOD 04/24/2025 1:00 PM EDT [facility] Coronavirus NL63 Not Detected Not Detected LAB MICROBIOLOGY METHOD 04/24/2025 1:00 PM EDT [facility] Parainfluenza Virus 1 Not Detected Not Detected LAB MICROBIOLOGY METHOD 04/24/2025 1:00 PM EDT [facility] Parainfluenza Virus 2 Not Detected Not Detected LAB MICROBIOLOGY METHOD 04/24/2025 1:00 PM EDT [facility] Parainfluenza Virus 3 Not Detected Not Detected LAB MICROBIOLOGY METHOD 04/24/2025 1:00 PM EDT [facility] Parainfluenza Virus 4 Not Detected Not Detected LAB MICROBIOLOGY METHOD 04/24/2025 1:00 PM EDT [facility] RSV PCR Not Detected Not Detected LAB MICROBIOLOGY METHOD 04/24/2025 1:00 PM EDT [facility] Human Metapneumovirus A and B Not Detected Not Detected LAB MICROBIOLOGY METHOD 04/24/2025 1:00 PM EDT [facility] Rhinovirus/Entero virus Not Detected Not Detected LAB MICROBIOLOGY METHOD 04/24/2025 1:00 PM EDT [facility] Bordetella pertussis Not Detected Not Detected LAB MICROBIOLOGY METHOD 04/24/2025 1:00 PM EDT [facility] Bordetella parapertussis Not Detected Not Detected LAB MICROBIOLOGY METHOD 04/24/2025 1:00 PM EDT [facility] Mycoplasma pneumo by PCR Not Detected Not Detected LAB MICROBIOLOGY METHOD 04/24/2025 1:00 PM EDT [facility] Chlamydia pneumoniae Not Detected Not Detected LAB MICROBIOLOGY METHOD 04/24/2025 1:00 PM EDT [facility] SARS COV-2 Not Detected Not Detected, Invalid LAB MICROBIOLOGY METHOD 04/24/2025 1:00 PM EDT [facility] Swab Both anterior nares / Unknown Non-blood Collection / Unknown 04/24/2025 11:42 AM EDT 04/24/2025 12:01 PM EDT us Milagros Pedro MD LAB MICROBIOLOGY - GENERAL ORD ERABLES Final Result [facility] [address] [place] [address], [place] [phone] * (ABNORMAL) Urinalysis with reflex microscopic and culture (04/24/2025 10:21 AM EDT) Color, Urine Yellow Colorless, Yellow LAB URINALYSIS - AUTOMATED METHOD 04/24/2025 10:27 AM [facility] Clarity, Urine Clear Clear LAB URINALYSIS - AUTOMATED METHOD 04/24/2025 10:27 AM [facility] Specific [place] Urine 1.020 1.005 - 1.030 LAB URINALYSIS - AUTOMATED METHOD 04/24/2025 10:27 AM [facility] pH, Urine 5.5 5.0 - 8.0 pH LAB URINALYSIS - AUTOMATED METHOD 04/24/2025 10:27 AM [facility] Leukocytes, Urine Negative Negative WBCs/mcL LAB URINALYSIS - AUTOMATED METHOD 04/24/2025 10:27 AM [facility] Nitrite, Urine Negative Negative LAB URINALYSIS - AUTOMATED METHOD 04/24/2025 10:27 AM [facility] Protein, Urine 30(A) Negative mg/dL LAB URINALYSIS - AUTOMATED METHOD 04/24/2025 10:27 AM [facility] Glucose, Urine Negative Negative mg/dL LAB URINALYSIS - AUTOMATED METHOD 04/24/2025 10:27 AM [facility] Ketones, Urine Trace(A) Negative mg/dL LAB URINALYSIS - AUTOMATED METHOD 04/24/2025 10:27 AM EDT [facility] Blood, Urine Negative Negative mg/dL LAB URINALYSIS - AUTOMATED METHOD 04/24/2025 10:27 AM [facility] Urine Urine specimen obtained by clean catch procedure / Unknown Non-blood Collection / Unknown 04/24/2025 10:21 AM EDT 04/24/2025 10:24 AM EDT us Lis Marlen Cotto MD LAB URINE ORDERABLES Final R esult [facility] [address] [place] [address], [place] [phone] * (ABNORMAL) Arterial blood gas (04/24/2025 6:15 AM EDT) pH, Arterial 7.45 7.35 - 7.45 pH LAB BLOOD GAS METHOD 04/24/2025 6:19 AM [facility] pCO2, Arterial 32(L) 35 - 45 mmHg LAB BLOOD GAS METHOD 04/24/2025 6:19 AM [facility] pO2, Arterial 83 80 - 105 mmHg LAB BLOOD GAS METHOD 04/24/2025 6:19 AM [facility] HCO3, Arterial 24.1 22.0 - 26.0 mmol/L LAB BLOOD GAS METHOD 04/24/2025 6:19 AM [facility] O2 Sat, Arterial 97.1 95.0 - 98.0 % LAB BLOOD GAS METHOD 04/24/2025 6:19 AM [facility] Base Excess, Arterial -1.0(L) 0.0 - 2.0 mmol/L LAB BLOOD GAS METHOD 04/24/2025 6:19 AM [facility] Jett Test Pass Pass, Unresponsi ve, Line 04/24/2025 6:19 AM EDT [facility] FIO2 100.00 04/24/2025 6:19 AM EDT [facility] Blood Arterial blood specimen / Unknown Arterial Puncture / Unknown 04/24/2025 6:15 AM EDT 04/24/2025 6:16 AM EDT Jennifer Cotto MD LAB BLOOD ORDERABLES Final R esult [facility] [address] [place] [address], [place] [phone] * Blood Culture, Peripheral #1 (04/24/2025 6:05 AM EDT) Only the most recent of2 resultswithin the time period is included. Culture, Blood No growth at 5 days 04/29/2025 2:01 PM EDT [facility] Blood Venous blood specimen / Unknown Venipuncture / Unknown 04/24/2025 6:05 AM EDT 04/24/2025 6:09 AM EDT Jennifer Cotto MD LAB MICROBIOLOGY - GENERAL O RDERABLES Final Result Performing Organization Address City/[facility]/ZIP Co de Phone Number [facility] [address] [place] [address], [place] [phone] * [id number], RSV, Influenza A and B qualitative RT-PCR (04/24/2025 6:03 AM EDT) Influenza A PCR Negative Negative LAB MOLECULAR DIAGNOSTICS METHOD 04/24/2025 6:56 AM EDT [facility] Influenza B PCR Negative Negative LAB MOLECULAR DIAGNOSTICS METHOD 04/24/2025 6:56 AM EDT [facility] RSV PCR Negative Negative LAB MOLECULAR DIAGNOSTICS METHOD 04/24/2025 6:56 AM EDT [facility] SARS COV-2 Negative Negative LAB MOLECULAR DIAGNOSTICS METHOD 04/24/2025 6:56 AM EDT [facility] Swab Nasopharyngeal structure / Unknown Non-blood Collection / Unknown 04/24/2025 6:03 AM EDT 04/24/2025 6:06 AM EDT Narrative [facility] - 04/24/2025 6:56 AM EDT This test has been authorized by FDA under an emergency used authorization (EUA). This EUA will cease to be effective when declared by [facility] that circumstances exist to justify its termination under section 564(bB)(2) of the Federal Food, Drug, and Cosmetic Act (The Act) 21 U.S.C. 360bbb 30,or when the EUA is revoked under section 564 (g) of the Act. Testing was performed using the One[employer] Xpert Xpress SARS-CoV2/FLU/RSV test. Negative results do not preclude SARS COV-2 test infection and should not be used as a sole basis for treatment or other patient management decisions. Negative results must be combined with clinical observation, patient history, and epidemiological information. Jennifer Cotto MD LAB MICROBIOLOGY - GENERAL O RDERABLES Final Result [facility] [address] [place] [address], [place] [phone] * PST green LI heparin tube (04/24/2025 6:01 AM EDT) Extra Tube Hold for add-ons. 04/24/2025 8:01 AM EDT [facility] Comment:Auto resulted. Blood Venous blood specimen / Unknown 04/24/2025 6:01 AM EDT 04/24/2025 6:13 AM EDT Jennifer Cotto MD LAB BLOOD ORDERABLES Final R esult [facility] [address] [place] [address], [place] [phone] * Light blue tube (04/24/2025 6:01 AM EDT) Pathologist [facility] Extra Tube Hold for add-ons. 04/24/2025 8:01 AM EDT [facility] Comment:Auto resulted. Blood Venous blood specimen / Unknown 04/24/2025 6:01 AM EDT 04/24/2025 6:13 AM EDT Jennifer Cotto MD LAB BLOOD ORDERABLES Final R esult Performing Organization Address [facility] Co de Phone Number [facility] [address] [place] [address], [place] [phone] * (ABNORMAL) D-Dimer (04/24/2025 6:01 AM EDT) Pathologist [facility] D-Dimer, Quant (D-DU) 686(H) <231 ng/mL DDU LAB COAGULATION METHOD 04/24/2025 3:12 PM EDT [facility] Blood Venous blood specimen / Unknown 04/24/2025 6:01 AM EDT 04/24/2025 6:13 AM EDT Narrative [facility] - 04/24/2025 3:12 PM EDT This assay has been approved by the Food and Drug Administration (FDA) for use in excluding low and moderate risk patients suspected of venous thromboembolism, including deep vein thrombosis (DVT) and pulmonary embolism (PE) when used in conjunction with a clinical Pre test Probability model such as Wells, et al. The D Dimer result should not be used alone to rule in DVT and or PE. us Augustine Arredondo MD LAB BLOOD ORDERABLES Jessica l Result Performing Organization Address City/[facility]/ZIP Co de Phone Number [facility] [address] [place] [address], [place] [phone] * (ABNORMAL) B-type natriuretic peptide (04/24/2025 6:01 AM EDT) [facility] BNP 194(H) 0 - 100 pcg/mL LAB CHEMISTRY METHOD 04/24/2025 6:39 AM EDT [facility] Blood Venous blood specimen / Unknown Venipuncture / Unknown 04/24/2025 6:01 AM EDT 04/24/2025 6:06 AM EDT Jennifer Cotto MD LAB BLOOD ORDERABLES Final R esult [facility] [address] [place] [address], * (ABNORMAL) Lipid panel (08/10/2024 9:36 AM EST) [facility] Cholesterol Total 88(L) 100 - 199 mg/dL [...] - 08/11/2024 5:06 AM EST Performed at: 01 - [facility] [address] [id number] Disbursement Clerk: Shalonda Camargo MD, Phone: [phone] us Berta Arroyo NP LAB BLOOD ORDERABLES Final Result [facility] 1 from Last 3 Months or Most Recently Relevant to Health Maintenance Insurance MEDICARE [place] - [place] Advance Directives * No CPR/Intubation OK (Latest Code Status on File) Date Activated Date Inactivated Comments 04/24/2025 1:47 PM 04/29/2025 1:[address] atus was ascertained in the following way: Code status discussion: discussion with patient To update the patient's code status, place a code status order. Do not modify or discontinue any currently active code status orders. Care Teams Side Sawyer Relationship Specialty Start Date End Date Piero Echevarria MD [address] [place] [address] [address] [place] [address] PCP - General Internal Medicine 12/21/20
--- OUTSIDE RECORDS SUMMARY | 2025-05-12 14:27 | XMS_ITS | Encounter Summary ---
Author Organization [facility] Address [address] [place] [address] Care Team Providers Care Production Wood Craftsman Name Role Phone Pcp, Essence CRONIN Primary Care Provider Piero Christian Primary Care Provider [phone] Reason for Referral * MRI/CAT/PET Scan (Routine) - Closed Specialty Diagnoses / Procedures Referred By Contshanthi t Referred To Contact Diagnoses Peroneal tendinitis of left lower extremity Posterior tibialis tendon insufficiency Achilles tendinitis of left lower extremity Procedures MRI ankle left WO contrast Karishma Montero MD [address] [place] [address] Phone: tel: fax: [address] [place] [address] Phone: tel: fax: Referral ID Status Reason Start Date Expiration Date Visits Requested Visits Authorized [id number] Closed Patient Preference 06/13/2021 07/18/2022 1 1 Encounter Details Date Type Department Care Team (Late st Contact Info) Description 06/13/2021 Orders Only [facility] Department of Orthopedic Surgery [address] [place], [place] [address] Karishma Montero MD [address] [place] [phone] Peroneal tendinitis of left lower extremity (Primary [...] extremity documented in this encounter Care Teams Production Wood Craftsman Relationship Specialty Start Date End Date Pcp, MD Essence [address] [place] [address] PCP - General Internal Medicine 01/16/18 06/28/22 Piero Echevarria [address] [place] [address] PCP - General Primary Care 06/29/22 documented as of this encounter
--- OUTSIDE RECORDS SUMMARY | 2025-05-12 14:27 | XMS_ITS | Clinical Summary ---
Author Organization [facility] Address [address] [place] [address] [place] [phone] Phone Care Team Providers Care Metallurgical Technician Name Role Phone Piero Echevarria MD Primary Care Provider + Abebe Owen MD, MPH Unavailable [phone] Treasure Carballo RN Unavailable [phone] Allergies No known active allergies Medications methylPREDNISol one (MEDROL DOSEPACK) 4 mg tablet TAKE 6 TABLETS ON DAY 1 DIRECTED ON PACKAGE AND DECREASE BY 1 TAB EACH DAY FOR A TOTAL OF 6 DAYS Active niacin 500 MG tablet Take 1 tablet by mouth 2 (two) times a day. Active SUMAtriptan (IMITREX) 6 mg/0.5 mL Soln See Instructions, INJECT 0.5MLS UNDER THE SKIN ONCE NEEDED FOR MIGRAINE HEADACHES. MAY REPEAT ONCE IN 1HR IF NEEDED, # 2.5 mL, 3 Refills, Soft Stop, 04/01/23 13:42:00 EDT, [id number], 186, cm, 04/01/23 13:10:00 EDT, Height, 98.4, kg, 03/22/... 04/01/2023 Active tadalafiL (CIALIS) 10 MG tablet Take 1 tablet by mouth daily. Active testosterone enanthate (DELATESTRYL) 200 mg/mL injection Inject into the muscle. Active ARMOUR THYROID 15 mg Tab Take 5 tablets by mouth daily. 06/30/2024 Active traMADoL (ULTRAM) 50 mg tablet TAKE 1-2 TABLETS BY MOUTH EVERY FOUR TO SIX HOURS NEEDED FOR PAIN Active vedolizumab (ENTYVIO) 300 mg SolR injection Inject 300 mg into the vein. Active venlafaxine (EFFEXOR-XR) 150 MG 24 hr capsule Take 1 capsule every day by oral route. Active GEMTESA 75 mg tablet Take 1 tablet by mouth daily. 04/01/2023 Active montelukast (SINGULAIR) 10 mg tablet Take 10 mg by mouth nightly at bedtime. 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 Encounters Date Type Department Care Team Description 05/07/2025 2:30 PM EDT Office Visit [facility] Department of Orthopaedic Surgery, Shoulder Service [address] [facility], [address] [address] Pedro Maciel Jp, MD Traumatic tear of right rotator cuff, unspecified tear extent, initial encounter (Primary Dx) 05/07/2025 1:56 PM EDT - 05/07/2025 11:59 PM EDT Hospital Encounter [facility] [place] [address] Pedro Maciel Jp, MD Discharge Disposition: Home or Self Care 05/07/2025 Orders Only [facility] Department of Orthopaedic Surgery, Sports Medicine Service [address] [place] [address], [address] [address] Susan Soria MA Pain (Primary Dx) from Last 3 Months Social History Tobacco Use Types Packs/Day Years [...] Sign Reading Time Taken Comments Blood Pressure 132/80 07/15/2024 2:57 PM EST Pulse 93 07/15/2024 2:57 PM EST Temperature 37.3 C (99.1 F) 07/15/2024 2:57 PM EST Respiratory Rate 18 07/15/2024 2:56 PM EST Oxygen Saturation 95% 07/15/2024 2:57 PM EST Inhaled Oxygen Concentration - - Weight 93 kg (205 lb) 05/07/2025 2:59 PM EDT Height 182.9 cm (6') 05/07/2025 2:59 PM EDT Body Mass Index 27.8 05/07/2025 2:59 PM EDT Plan of Treatment Health Maintenance Due Date Last Done Comments Adult Td,Tdap Booster 1961 COVID-19 VACCINE (#1) 1966 DEPRESSION SCREENING 1973 HEPATITIS C SCREENING 1979 HIV ONE-TIME SCREENING (18-6 5 YEARS) 1979 PNEUMOCOCCAL VACCINES (50+ y ears) (1 of 2 - PCV) 1980 ZOSTER VACCINES (1 of 2) 1980 SMOKING STATUS SCREENING (On ce After 26 Yrs) 1987 SCREENING FOR DIABETES 1996 COLOGUARD 2006 COLONOSCOPY 2006 COLORECTAL CANCER SCREENING 2006 FIT TEST 2006 FOBT 2006 SIGMOIDOSCOPY 2006 VIRTUAL COLONOSCOPY 2006 RSV VACCINE (1 - Risk 60-74 years 1-dose series) 2021 INFLUENZA VACCINE (#1) 2025 LIPID PANEL 08/10/2029 08/10/2024 HEPATITIS A VACCINES Aged Out No long er eligible based on patient's age to complete this topic HIB VACCINES Aged Out No longer eligi ble based on patient's age to complete this topic MENINGOCOCCAL VACCINES (ACWY) Aged Out No longer eligible based on patient's age to complete this topic MENINGOCOCCAL VACCINES (B) Aged Out N o longer eligible based on patient's age to complete this topic Medical Devices Not on file Procedures Procedure Name Priority Date/Time Associated Diagnosis Comments XR SHOULDER 2 VIEWS (RIGHT) Routine 05/07/2025 2:02 PM EDT Pain from Last 3 Months Results * XR SHOULDER 2 VIEWS (RIGHT) [...] IMG XR UPPER EXTREMITY Final Re sult from Last 3 Months Insurance MEDICARE PART A & B [employer] NET FULL MEDICARE PART A & B [employer] [facility] & B [facility] FULL MEDICARE PART A & B HEALTH SAFETY NET FULL MEDICARE PART A & B NET FULL Member Subscriber Plan / Payer (Ef fective 2015-Present) Name:Mirza Galvan Relation to Subscriber:Self Name:Mirza Galvan Natalio Payer ID:Not on file Group ID:Not on file Type:Medicaid Address: [address] MEDICARE PART A & B [facility] FULL MEDICARE PART A & B [facility] FULL Member Subscriber Plan / Payer (Ef fective 2015-Present) Name:Mirza Galvan Relation to Subscriber:Self Name:Mirza Galvan Payer ID:Not on file Group ID:Not on file Type:Medicaid Address: [address] MEDICARE PART A & B [employer] SAFETY NET FULL MEDICARE PART A & B [facility] NET FULL Care Teams Metallurgical Technician Relationship Specialty Start Date End Date Piero Echevarria MD [address] [place] [address] PCP - General Internal Medicine 07/07/24 Abebe Owen MD, MPH [address] [place] [phone] [email or web address] 09/03/24 Treasure Carballo RN [address] [place] [phone] [email or web address] Nurse Navigator 09/03/24 Additional Source Comments The information contained in this document represents components of the legal health record. It is not the complete legal health record.[facility]
--- OUTSIDE RECORDS SUMMARY | 2025-05-12 14:28 | XMS_ITS | Encounter Summary ---
Author Organization [facility] Address [address] [place] [address] [place] [address] Phone Care Team Providers Care Patient Accounts Clerk Name Role Phone Piero Echevarria MD Primary Care Provider + Abebe Owen MD, MPH Unavailable [phone] Treasure Carballo RN Unavailable [phone] Encounter Details Date Type Department Care Team (Late st Contact Info) Description 07/19/2024 Procedure Pass [facility] [place], MRI [address] [place] [address] Social History Tobacco Use Types Packs/Day Years [...] - - Weight 93 kg (205 lb) 07/21/2024 3:04 PM EST Height - - Body Mass Index 27.65 07/15/2024 2:56 PM EST documented in this encounter Plan of Treatment Not on file documented as of this encounter Visit Diagnoses Not on filedocumented in this encounter Care Teams Patient Accounts Clerk Relationship Specialty Start Date End Date Piero Echevarria MD [address] [place] [address] PCP - General Internal Medicine 07/07/24 Abebe Owen MD, MPH [address] [place] [phone] [email or web address] Medical Oncology 09/03/24 Treasure Carballo RN [address] [place] [phone] [email or web address] Navigator 09/03/24 documented as of this encounter Additional Source Comments The information contained in this document represents components of the legal health record. It is not the complete legal health record.[facility]
--- OUTSIDE RECORDS SUMMARY | 2025-05-12 14:28 | XMS_ITS | Encounter Summary ---
Author Organization [facility] Address [address] [facility] [address] [place] [address] Phone Care Team Providers Care Urgent Care Technician Name Role Phone Piero Echevarria MD Primary Care Provider + Abebe Owen MD, MPH Unavailable [phone] Treasure Carballo RN Unavailable [phone] Encounter Details Date Type Department Care Team (Late st Contact Info) Description 05/07/2025 Orders Only [facility] Department of Orthopaedic Surgery, Sports Medicine Service [address] [facility], [address] [place] [address] [place] [address] [email or web address] Pain (Primary Dx) Social History Tobacco Use Types [...] on file documented as of this encounter Results * XR SHOULDER 2 [...] documented in this encounter Visit Diagnoses Diagnosis Pain- Primary Generalized pain Pain Generalized pain documented in this encounter Care Teams Urgent Care Technician Relationship Specialty Start Date End Date Piero Echevarria MD [address] [place] [address] PCP - General Internal Medicine 07/07/24 Abebe Owen MD, MPH [address] [place] [phone] [email or web address] Medical Oncology 09/03/24 Treasure Carballo RN [address] [place] [address] [email or web address] Nurse Navigator 09/03/24 documented as of this encounter Additional Source Comments The information contained in this document represents components of the legal health record. It is not the complete legal health record.[facility]
== END 2025-05-12 11:20 | disposition home or self-care (01) ==
LOC: HO.BBR 11:19
PROVIDERS: PCP Internal Medicine; Visit Provider Urology
DX: D75.1 Secondary polycythemia (principal)
CPT/HCPCS: 85018; 99195